=== PATIENT | female | born 1960 | race Caucasian/White ===

== ENCOUNTER 2022-12-01 11:22 | Inpatient (IN) | payer OTHER, SELFPAY ==
[2022-12-01] VITALS (25 sets, daily range): BP systolic 83–131; BP diastolic 56–81; PULSE 73–114; RESP 16–18; TEMP 36.4–36.8; O2SAT 91–97; BMI 25.6
--- NOTE | 2022-12-01 11:50 | ED.NURSE ---
ekg done. pt on home o2 at 2-3 L/nc. pt placed on wall O2.
--- NOTE | 2022-12-01 11:53 | CRLHL7_ITS ---
For Patients: As a result of the Century Cures Act, medical imaging exams and procedure reports are released immediately into your electronic medical record. You may view this report before your referring provider. If you have questions, please contact your health care provider. Indication: Chest pain, hypoxia Comparison: 05/21/2013 Technique: CTA of the chest. 95 cc of Isovue 370. Findings: Multiple lung cysts of varying sizes. This has progressed slightly in the interim. The largest lung cysts measure up to 3.1 cm. A loculated hydropneumothorax is seen in a subpulmonic location of the left lower lobe. In 2012 there was a pneumothorax involving the left hemithorax with areas of atelectasis. Small loculated right pleural effusion. Areas of atelectasis or scarring in the right lower lobe. No central pulmonary artery embolism. No obvious abnormality of visualized upper abdomen. No thoracic aortic aneurysm. No aggressive appearing osseous lesion. Kyphosis, with severely height loss of a chronic compression deformity in the lower thoracic spine Impression: 1. Subpulmonic loculated left hydro pneumothorax associated with areas of left lower lobe atelectasis. 2. Small loculated right pleural effusion. Areas of atelectasis or scarring in the right lower lobe. 3. Multiple lung cysts of varying with slight progression. Correlate with any history of TESFAYE given pneumothoraces and pleural effusions. The fluid could be sampled to determine if there is a chylothorax. Alternatively this is emphysema with chronic loculated pleural fluid. 4. No central pulmonary artery embolism. Please note that all CT scans at this facility use dose modulation, iterative reconstruction, and/or weight-based dosing when appropriate to reduce radiation dose to as low as reasonably achievable. Dictated by Nikunj Stovall MD @ 12/01/2022 1:48:59 PM (Electronically Signed) ADDENDUM ----- Requested to comparison additionally to 11/29/2022 CT also performed at [facility] but not available for me at the time of the dictation. In comparison there is slightly more fluid in the right pleural space on the new exam. Dictated by Nikunj Stovall MD @ Dec 01 2022 1:48PM Signed by:?Nikunj Stovall MD @12/01/2022 1:51:09 PM (Electronic Signature)
--- NOTE | 2022-12-01 12:02 | ED_ITS ---
HPI - General Adult General Chief complaint: Shortness of Breath/Dyspnea Stated complaint: breathing issues Time Seen by Provider: 12/01/22 11:29 Source: patient and family Mode of arrival: ambulatory Limitations: no limitations History of Present Illness HPI narrative: 62-year-old female coming in today complaining of right-sided chest pain and hypoxia. Patient states that she was hospitalized just before the holidays last year with pneumonia and influenza. She was discharged home on chronic O2 therapy which she states she has been using intermittently over the last 2 weeks. She generally has it set at 2 L when she does use it. She had a follow- up appointment this week on Saturday where she received x-ray which showed a small pleural effusion. She had a follow-up CT done on which showed that same small pleural effusion, resolution of her pneumonia and continued cavitary lesions which were not new. It did note that she had a cavitary lesion on the right that had filled up with fluid as well. I was able to review these results on the patient's health records on her phone. Patient's chest pain is located in the right lateral chest wall just at the axillary line. Does not radiate. Nothing seems to make it better or worse. She states that last night she began to feel a little bit more short of breath than her baseline and she checked her oxygen saturation 1st thing this morning a nd it was 88% on room air which she generally sits around 92-94. She put her oxygen on at 3 L and this brought her oxygen up to about mid 90s. She is quite concerned that her oxygen went down so low in so she presents to the ER today. She is not coughing more than usual, she denies any fevers. She does have a history of PE. She denies headache, dizziness or lightheadedness. She denies nausea or vomiting. Related Data Home Medications Medication Instructions Recorded Confirmed albuterol 90 mcg/actuation aerosol 2 spray inhalation Q4H PRN 10/16/22 12/01/22 inhaler buprenorphine 8 mg-naloxone 2 mg 3 film sublingual DAILY 10/16/22 12/01/22 sublingual film calcium carbonate 600 mg calcium 600 mg PO QDAY 10/16/22 12/01/22 (1,500 mg) tablet (Calcium) escitalopram oxalate 20 mg tablet 20 mg PO QDAY 10/16/22 12/01/22 folic acid 1 mg tablet 1 mg PO QDAY 10/16/22 12/01/22 glucosamine sulfate 1,000 mg tablet 1,000 mg PO QDAY 10/16/22 12/01/22 lamotrigine 200 mg tablet 200 mg PO QDAY 10/16/22 12/01/22 lidocaine 5 % topical patch 1 patch topical QDAY PRN 10/16/22 12/01/22 multivitamin 1 tab PO QAM 10/16/22 12/01/22 omega-3 fatty acids 1,000 mg 1,000 mg PO QDAY 10/16/22 12/01/22 capsule potassium chloride 15 mEq 15 meq PO QDAY 10/16/22 12/01/22 tablet,extended release(part/cryst) trazodone 100 mg tablet 100 mg PO QHS PRN 10/16/22 12/01/22 warfarin 2.5 mg tablet 2.5 mg PO QDAY 10/16/22 12/01/22 clonidine HCl 0.1 mg tablet 0.1 mg PO Q8H PRN anxiety 12/01/22 12/01/22 methocarbamol 500 mg tablet 500 mg PO Q8H PRN pain 12/01/22 12/01/22 Allergies Allergy/AdvReac Type Severity Reaction Status Date / Time buspirone Allergy Mild Unknown Verified 10/16/22 09:50 celecoxib Allergy Mild Nausea Verified 10/16/22 09:50 gabapentin Allergy Mild Unknown Verified 10/16/22 09:50 naproxen Allergy Mild Nausea Verified 10/16/22 09:50 nortriptyline Allergy Mild Unknown Verified 10/16/22 09:50 paroxetine Allergy Mild Unknown Verified 10/16/22 09:50 piroxicam Allergy Mild Unknown Verified 10/16/22 09:50 prednisone Allergy Mild Unknown Verified 10/16/22 09:50 Review of Systems Status of ROS: Reports: 10 or more systems reviewed and unremarkable except as noted in History and below [facility] Medical History ADHD (attention deficit hyperactivity disorder) Chronic bullous emphysema (05/23/13) History of anxiety History of colitis History of depression History of pulmonary embolism Hypertension Lupus anticoagulant positive Peripheral venous insufficiency (05/23/13) Spontaneous pneumothorax (2005) Surgical History History of endometrial ablation (05/19/08) History of excision of mass (08/22/17) History of hand surgery (12/03/19) Social History Narrative: History narcotic dependence. Smoking Status: Former smoker How often do you have a drink containing alcohol: never AUDIT-C Alcohol total score: 0 Non-prescribed substance use: denies use Exam Narrative: Exam Narrative: Well-nourished well-developed patient in no acute distress. Alert and oriented. Answers questions appropriately. Mood and affect are appropriate. Thoughts are goal oriented and rational. No tangential or magical thinking noted. Patient speaks in full sentences without needing to catch their breath. HEENT: Normocephalic atraumatic. Pupils are equally round reactive to light. Extraocular muscles are intact. Conjunctivae are moist without any icterus noted. Moist mucous membranes. Posterior pharynx is normal. Neck is soft without any lymphadenopathy or thyromegaly. No masses are appreciated. Cardiovascular: Heart is regular rate and rhythm S1 and S2 are present without any murmurs. Lungs: Bibasilar crackles. Patient takes deep breaths without discomfort. No wheezes rhonchi or rales appreciated. Abdomen: Soft and nontender nondistended with normal bowel sounds. Extremities: Bilateral lower extremities are without edema. Normal DP and PT pulses. Skin: Well perfused without any obvious rashes. Const: Vital Signs, click to edit/add: Vital Signs - 24 hr 12/01/22 11:27 12/01/22 12:45 12/01/22 12:46 Temperature 98.3 F Pulse Rate 85 Pulse Rate [Right Pulse Oximeter] 114 H 84 Respiratory Rate 18 18 Blood Pressure Blood Pressure [Ri ght Upper Arm] 123/80 112/69 Pulse Oximetry 95 92 93 Oxygen Delivery Me thod Room Air Nasal Cannula 12/01/22 12:00 12/01/22 13:17 12/01/22 13:13 Temperature Pulse Rate 85 Pulse Rate [Right Pulse Oximeter] 89 80 Respiratory Rate Blood Pressure 115/68 Blood Pressure [Ri ght Upper Arm] 103/77 115/68 Pulse Oximetry 93 94 93 Oxygen Delivery Me thod Nasal Cannula Nasal Cannula 12/01/22 13:14 12/01/22 13:30 12/01/22 13:32 Temperature Pulse Rate 82 80 82 Pulse Rate [Right Pulse Oximeter] Respiratory Rate Blood Pressure 111/63 Blood Pressure [Ri ght Upper Arm] Pulse Oximetry 94 95 95 Oxygen Delivery Me thod 12/01/22 13:33 12/01/22 14:04 12/01/22 14:05 Temperature Pulse Rate 82 83 78 Pulse Rate [Right Pulse Oximeter] Respiratory Rate Blood Pressure 131/75 Blood Pressure [Ri ght Upper Arm] Pulse Oximetry 95 96 97 Oxygen Delivery Me thod 12/01/22 14:06 12/01/22 14:30 12/01/22 14:32 Temperature Pulse Rate 75 77 81 Pulse Rate [Right Pulse Oximeter] Respiratory Rate Blood Pressure 108/71 Blood Pressure [Ri ght Upper Arm] Pulse Oximetry 97 94 94 Oxygen Delivery Me thod 12/01/22 15:00 12/01/22 15:01 Temperature Pulse Rate 83 89 Pulse Rate [Right Pulse Oximeter] Respiratory Rate Blood Pressure 118/79 Blood Pressure [Ri ght Upper Arm] Pulse Oximetry 91 93 Oxygen Delivery Me thod Course Course Hospital Course: IV was established labs were drawn. EKG, read by me, shows normal sinus rhythm with a pulse of 94. CBC showing slight anemia with a low hemoglobin at 11.2. INR Elevated at 3.56. D-dimer slightly elevated 0.56. Chemistries are unremarkable. LFTs are unremarkable. Troponin was elevated at 0.06, repeat troponin unchanged at 0.06. CRP markedly elevated at 18.4. Negative triple swab. CT chest negative for PE, however showing hydropneumothorax and a right-sided loculated pleural effusion. Discussed findings with Dr. Petty-patient will be admitted for further management. Vital Signs Vital signs: Initial Vital Signs Temperature 98.3 F 12/01/22 11:27 Temperature Source Temporal Artery Scan 12/01/22 11:27 Pulse Rate 114 H 12/01/22 11:27 Respiratory Rate 18 12/01/22 11:27 Blood Pressure 123/80 12/01/22 11:27 Blood Pressure Mean 94 12/01/22 11:27 Blood Pressure Position Supine 12/01/22 11:27 Pulse Oximetry 95 12/01/22 11:27 Oxygen Delivery Method 12/01/22 11:27 Vital Signs Temperature 98.3 F 12/01/22 11:27 Pulse Rate 114 H 12/01/22 11:27 Respiratory Rate 18 12/01/22 11:27 Blood Pressure 123/80 12/01/22 11:27 Pulse Oximetry 95 12/01/22 11:27 Oxygen Delivery Method 12/01/22 11:27 Temperature 98.3 F 12/01/22 11:27 Pulse Rate 89 12/01/22 15:01 Respiratory Rate 18 12/01/22 12:46 Blood Pressure 118/79 12/01/22 15:01 Pulse Oximetry 93 12/01/22 15:01 Oxygen Delivery Method 12/01/22 13:17 Medical Decision Making MDM Narrative Medical decision making narrative: 62-year-old female with hypoxia, elevated troponin, hydropneumothorax-patient will be admitted for further management. Medical Records Medical records reviewed: Yes I reviewed the patient's medical records Lab Data Lab results reviewed: Yes I reviewed the patient's lab results Labs: Lab Results 12/01/22 12/01/22 12/01/22 Range/Units 12:05 12:05 12:05 WBC 10.51 (4.50-11.00) K/uL RBC 3.43 L (4.00-5.20) m/uL Hgb 11.2 L (12.0-16.0) gm/dL Hct 33.7 (33.0-51.0) % MCV 98 (80-100) fL MCH 33 (26-34) pg MCHC 33 (32-36) gm/dL RDW Coeff of Javed 14.2 (11.5-15.5) % Plt Count 314 (140-440) K/uL Neut % (Auto) 65.8 (42.0-72.0) % Lymph % (Auto) 19.5 L (20-44) % [place] % (Auto) 9.0 (0.0-11.0) % Eos % (Auto) 5.3 (0.0-7.0) % Baso % (Auto) 0.2 (0.0-3.0) % Neut # (Auto) 6.91 (1.7-7.0) K/uL Lymph # (Auto) 2.00 (0.90-2.90) K/uL [place] # (Auto) 0.90 (0.00-0.90) K/UL Eos # (Auto) 0.56 H (0.00-0.50) K/uL Baso # (Auto) 0.02 (0.00-0.30) K/uL INR (0.91-1.10) D-Dimer Quant (PE/DVT) (0.00-0.50) ug/ml Sodium 135 (135-149) mmol/L Potassium 3.8 (3.6-5.1) mmol/L Chloride 105 (96-114) mmol/L Carbon Dioxide 25 (20-32) mmol/L BUN 11 (7-30) mg/dL Creatinine 0.6 (0.5-1.5) mg/dL Estimated Creat Clear 49.72 Estimated GFR 101 ml/min Glucose 124 H (60-115) mg/dL Calcium 9.3 (8.4-10.6) mg/dL Total Bilirubin 0.6 (0.1-1.5) mg/dL Direct Bilirubin 0.4 (0.0-0.5) mg/dL AST 18 (12-35) U/L ALT 20 (4-35) U/L Alkaline Phosphatase 68 (40-150) U/L Troponin I (0.01-0.04) ng/mL C-Reactive Protein 18.4 H (0.5-1.0) mg/dL Total Protein 7.0 (6.0-8.3) g/dL Albumin 3.8 (3.3-5.0) g/dL SARS-CoV-2 (PCR) Negative SARS-CoV-2 (Negative) Influenza Type A (PCR) Negative PCR FLU A (Negative) Influenza Type B (PCR) Negative PCR FLU B (Negative) RSV (PCR) Negative PCR RSV (Negative) 12/01/22 12/01/22 12/01/22 Range/Units 12:05 12:05 13:16 WBC (4.50-11.00) K/uL RBC (4.00-5.20) m/uL Hgb (12.0-16.0) gm/dL Hct (33.0-51.0) % MCV (80-100) fL MCH (26-34) pg MCHC (32-36) gm/dL RDW Coeff of Javed (11.5-15.5) % Plt Count (140-440) K/uL Neut % (Auto) (42.0-72.0) % Lymph % (Auto) (20-44) % [place] % (Auto) (0.0-11.0) % Eos % (Auto) (0.0-7.0) % Baso % (Auto) (0.0-3.0) % Neut # (Auto) (1.7-7.0) K/uL Lymph # (Auto) (0.90-2.90) K/uL [place] # (Auto) (0.00-0.90) K/UL Eos # (Auto) (0.00-0.50) K/uL Baso # (Auto) (0.00-0.30) K/uL INR (0.91-1.10) D-Dimer Quant (PE/DVT) 0.56 H (0.00-0.50) ug/ml Sodium (135-149) mmol/L Potassium (3.6-5.1) mmol/L Chloride (96-114) mmol/L Carbon Dioxide (20-32) mmol/L BUN (7-30) mg/dL Creatinine (0.5-1.5) mg/dL Estimated Creat Clear Estimated GFR ml/min Glucose (60-115) mg/dL Calcium (8.4-10.6) mg/dL Total Bilirubin (0.1-1.5) mg/dL Direct Bilirubin (0.0-0.5) mg/dL AST (12-35) U/L ALT (4-35) U/L Alkaline Phosphatase (40-150) U/L Troponin I 0.06 H* 0.06 H* (0.01-0.04) ng/mL C-Reactive Protein (0.5-1.0) mg/dL Total Protein (6.0-8.3) g/dL Albumin (3.3-5.0) g/dL SARS-CoV-2 (PCR) (Negative) Influenza Type A (PCR) (Negative) Influenza Type B (PCR) (Negative) RSV (PCR) (Negative) 12/01/22 Range/Units 13:16 WBC (4.50-11.00) K/uL RBC (4.00-5.20) m/uL Hgb (12.0-16.0) gm/dL Hct (33.0-51.0) % MCV (80-100) fL MCH (26-34) pg MCHC (32-36) gm/dL RDW Coeff of Javed (11.5-15.5) % Plt Count (140-440) K/uL Neut % (Auto) (42.0-72.0) % Lymph % (Auto) (20-44) % [place] % (Auto) (0.0-11.0) % Eos % (Auto) (0.0-7.0) % Baso % (Auto) (0.0-3.0) % Neut # (Auto) (1.7-7.0) K/uL Lymph # (Auto) (0.90-2.90) K/uL [place] # (Auto) (0.00-0.90) K/UL Eos # (Auto) (0.00-0.50) K/uL Baso # (Auto) (0.00-0.30) K/uL INR 3.56 H (0.91-1.10) D-Dimer Quant (PE/DVT) (0.00-0.50) ug/ml Sodium (135-149) mmol/L Potassium (3.6-5.1) mmol/L Chloride (96-114) mmol/L Carbon Dioxide (20-32) mmol/L BUN (7-30) mg/dL Creatinine (0.5-1.5) mg/dL Estimated Creat Clear Estimated GFR ml/min Glucose (60-115) mg/dL Calcium (8.4-10.6) mg/dL Total Bilirubin (0.1-1.5) mg/dL Direct Bilirubin (0.0-0.5) mg/dL AST (12-35) U/L ALT (4-35) U/L Alkaline Phosphatase (40-150) U/L Troponin I (0.01-0.04) ng/mL C-Reactive Protein (0.5-1.0) mg/dL Total Protein (6.0-8.3) g/dL Albumin (3.3-5.0) g/dL SARS-CoV-2 (PCR) (Negative) Influenza Type A (PCR) (Negative) Influenza Type B (PCR) (Negative) RSV (PCR) (Negative) Imaging Data CT scan - chest: Attestation: I have reviewed the pertinent imaging results. Radiologist's impression: CTA of the chest. 95 cc of Isovue 370. Findings: Multiple lung cysts of varying sizes. This has progressed slightly in the interim. The largest lung cysts measure up to 3.1 cm. A loculated hydropneumothorax is seen in a subpulmonic location of the left lower lobe. In 2013 there was a pneumothorax involving the left hemithorax with areas of atelectasis. Small loculated right pleural effusion. Areas of atelectasis or scarring in the right lower lobe. No central pulmonary artery embolism. No obvious abnormality of visualized upper abdomen. No thoracic aortic aneurysm. No aggressive appearing osseous lesion. Kyphosis, with severely height loss of a chronic compression deformity in the lower thoracic spine Impression: 1. Subpulmonic loculated left hydro pneumothorax associated with areas of left lower lobe atelectasis. 2. Small loculated right pleural effusion. Areas of atelectasis or scarring in the right lower lobe. 3. Multiple lung cysts of varying with slight progression. Correlate with any history of TESFAYE given pneumothoraces and pleural effusions. The fluid could be sampled to determine if there is a chylothorax. Alternatively this is emphysema with chronic loculated pleural fluid. 4. No central pulmonary artery embolism. ECG Data Attestation: I personally reviewed and interpreted this ECG as follows: Discharge Plan Discharge Clinical Impression: Hydropneumothorax, Elevated troponin, Hypoxia Patient Disposition: Admitted As Inpatient Condition: Stable Prescriptions: No Action buprenorphine-naloxone 8-2 mg film 3 film sublingual DAILY albuterol 90 mcg/actuation aerosol 2 spray inhalation Q4H PRN warfarin 2.5 mg tablet 2.5 mg PO QDAY Label Comments: directed per her INR results trazodone 100 mg tablet 100 mg PO QHS PRN potassium chloride 15 mEq tablet,ER particles/crystals 15 meq PO QDAY omega-3 fatty acids 1,000 mg capsule 1,000 mg PO QDAY multivitamin Tablet 1 tab PO QAM lidocaine 5 % adhesive patch,medicated 1 patch topical QDAY PRN Label Comments: May use 1-2 patches QD PRN Rx Instructions: leave on most painful area for up to 12 hrs lamotrigine 200 mg tablet 200 mg PO QDAY glucosamine sulfate 1,000 mg tablet 1,000 mg PO QDAY Rx Instructions: administer with meals folic acid 1 mg tablet 1 mg PO QDAY escitalopram oxalate 20 mg tablet 20 mg PO QDAY calcium carbonate [Calcium 600] 600 mg calcium (1,500 mg) tablet 600 mg PO QDAY methocarbamol 500 mg tablet 500 mg PO Q8H PRN (Reason: pain) Label Comments: TAKE 1-2 TABLETS BY MOUTH EVERY 8 HOURS NEEDED FOR PAIN/SPASMS. clonidine HCl 0.1 mg tablet 0.1 mg PO Q8H PRN (Reason: anxiety) Label Comments: TAKE 1 TABLET BY MOUTH 3 TIMES PER DAY NEEDED FOR ANXIETY Follow Up/Referrals: Cindi Torres MD [Primary Care Provider] -
[2022-12-01 12:17] LABS: Basophils Absolute Auto 0.02 K/uL (0.00-0.30); Basophils Percent Auto 0.2 % (0.0-3.0); Eosinophils Absolute Auto 0.56 K/uL (0.00-0.50); Eosinophils Percent Auto 5.3 % (0.0-7.0); Hematocrit 33.7 % (33.0-51.0); Hemoglobin* 11.2 gm/dL (12.0-16.0); Immature Granulocytes Abs Auto 0.02 K/uL (0.00-0.30); Immature Granulocytes Pct Auto 0.2 %; Lymphocytes Percent Auto 19.5 % (20-44); Mean Corpuscular HGB Conc 33 gm/dL (32-36); Mean Corpuscular Hemoglobin 33 pg (26-34); Mean Corpuscular Volume 98 fL (80-100); Neutrophils Absolute Auto 6.91 K/uL (1.7-7.0); Neutrophils Percent Auto 65.8 % (42.0-72.0); Platelet Count* 314 K/uL (140-440); RDW Coefficient of Variation % 14.2 % (11.5-15.5); Red Blood Count 3.43 m/uL (4.00-5.20); White Blood Count* 10.51 K/uL (4.50-11.00)
[2022-12-01 12:35] LABS: Slide Review Reflex No
[2022-12-01 12:36] LABS: Chloride* 105 mmol/L (96-114)
[2022-12-01 12:37] LABS: Albumin* 3.8 g/dL (3.3-5.0); Potassium* 3.8 mmol/L (3.6-5.1); Sodium* 135 mmol/L (135-149)
[2022-12-01 12:39] LABS: Creatinine* 0.6 mg/dL (0.5-1.5); Est. Creatinine Clearance* 49.72; Estimated Glomerular Filt Rate 101 ml/min
[2022-12-01 12:40] LABS: Alanine Aminotransferase* 20 U/L (4-35); Alkaline Phosphatase* 68 U/L (40-150); Aspartate Amino Transferase* 18 U/L (12-35); Bilirubin Direct* 0.4 mg/dL (0.0-0.5); Bilirubin Total* 0.6 mg/dL (0.1-1.5); Blood Urea Nitrogen* 11 mg/dL (7-30); Calcium* 9.3 mg/dL (8.4-10.6); Carbon Dioxide* 25 mmol/L (20-32); D Dimer Quantitative* 0.56 ug/ml (0.00-0.50); Glucose* 124 mg/dL (60-115)
[2022-12-01 12:54] LABS: PCR FLU A Negative PCR FLU A (Negative); PCR FLU B Negative PCR FLU B (Negative); PCR RSV Negative PCR RSV (Negative)
[2022-12-01 12:58] LABS: SARS PCR* Negative SARS-CoV-2 (Negative)
[2022-12-01 13:00] LABS: C Reactive Protein* 18.4 mg/dL (0.5-1.0); Troponin I* 0.06 ng/mL (0.01-0.04)
--- NOTE | 2022-12-01 13:03 | ED.NURSE ---
lab called with critical troponin 0.06, dr. brown notified.
--- NOTE | 2022-12-01 14:09 | ED.NURSE ---
sats 96% on 3 Liters, per dr. brown check sats on RA.
[2022-12-01 14:16] LABS: Troponin I* 0.06 ng/mL (0.01-0.04)
--- NOTE | 2022-12-01 14:23 | ED.NURSE ---
RA sats 88-90% while at rest.
[2022-12-01 15:04] LABS: INR 3.56 (0.91-1.10); Prothrombin Time 37.2 Seconds
--- NOTE | 2022-12-01 15:38 | ED.NURSE ---
dr. brown in talking with pt, plans admission
--- NOTE | 2022-12-01 15:46 | PM.IMHP1 ---
Hospitalist- H&P: HPI History of Present Illness Date Seen: 12/01/22 Chief complaint: breathing issues Narrative: Shweta Teague is a 62 year old female who presented to the ED today for a 2 day history of R sided chest pain and hypoxia. She started noted pain in her R chest yesterday; no trauma. Pain worse with deep breathing and movement. No fevers, no significant cough, no sick contacts. She was recently hospitalized at [facility] from 11/08-11/11 for Influenza and pneumonia, then transferred to [facility] from 11/11-11/16 after having severe epistaxis and concern for worsening respiratory failure. Shweta was discharged home on supplemental oxygen and a course of Cefpodoxime; has completed course of antibiotics and had been weaning off of supplemental oxygen successfully. This morning, in addition to her chest pain, Shweta also noted hypoxia at rest (88% on RA, had been 92-94% at rest earlier in the week). The hypoxia and persistent R sided chest pain prompted her ED visit. ER Course and Findings: - troponin 0.06, no acute changes on EKG - CT scan revealed no PE, noted subpulmonic loculated left hydropneumothorax, left lower lobe atelectasis, small loculated right pleural effusion, multiple lung cysts (emphysema and TESFAYE in ddx) - hgb 11.2 (was 10.6 last week) - normal WBC, CRP 18 - 88% on RA, responded well to low dose supplemental oxygen - INR 3.56 (on Coumadin for antiphospholipid antibody and history of PE, details below) CT findings above are new. Patient had a CT in clinic last week after hospital d/c f/u that exhibited the following: Findings: Interval development fluid within the pre-existing cyst in the left lower lobe. This cyst measures 7.9 cm and is chronic. There is no associated wall thickening. Marked improved pulmonary parenchyma bilaterally compared to the prior study with mild residual parenchymal densities in the left lower lobe and right lower lobe. 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 Decreased intrathoracic adenopathy compared to the prior exam. No fracture. Incidental small left renal cysts noted. No hiatal hernia. There is a focal ovoid area of low attenuation within the right lower lobe medially measuring 2.7 cm may also represent fluid within a pre-existing cyst. Small right pleural effusion is present. There is no pneumothorax. ? Impression: Improved appearance of the bilateral inflammatory/infectious process when compared to the prior study with residual airspace densities in both lower lobes. Interval development of fluid within the large pre-existing lung cyst within the left lower lobe. This does not appear to represent an abscess. Small right pleural effusion is now present. There is also a 2.7 cm focal area of relative low density within the medial right lower lobe which likely represents fluid within additional pre-existing lung cyst. Decreased reactive mediastinal and bilateral hilar adenopathy. Recommend follow-up CT chest in 1 month to further assess these findings. Patient's past medical history updated in tabs below. She had bilateral massive PEs in 2005; was subsequently diagnosed with antiphospholipid antibody. She is on warfarin, her factor 10 Chromogenic is followed rather than INR given unreliability with this particular hypercoagulable state. After her severe epistaxis last month, she was treated with vitamin K, then bridged with BID Lovenox until last week. She sees Drs. Torres and Clemente at the [facility] locally. Shweta lives with Chris in [facility]; he would be medical decision maker if needed. Two grown children. Quit smoking 10+ years ago, occasionally chews nicotine gum. No ETOH use. Requests Full Code status. Review of Systems Status of ROS: Reports: 10 or more systems reviewed and unremarkable except as noted in History and below Narrative: - no concerning skin lesions or rashes - no hemoptysis - no L-sided chest pain PFSH PFSH Medical History (Updated 12/01/22 @ 17:04 by Melanie Petty MD) Anxiety Atrophic vaginitis Bipolar disorder Chronic bullous emphysema (05/23/13) Depression History of ADHD History of colitis History of narcotic use History of pulmonary embolism Insomnia Lupus anticoagulant positive Peripheral venous insufficiency (05/23/13) Spontaneous pneumothorax (2005) Surgical History History of endometrial ablation (05/19/08) History of excision of mass (08/22/17) History of hand surgery (12/03/19) Social History (Updated 12/01/22 @ 16:56 by Melanie Petty MD) Narrative: Lives with Chris (medical decision maker, if needed) in [place], adult children. Baby-sits grandchildren. Remote history of smoking, quit > 10 years ago. Occasionally chews nicotine gum. No alcohol use. Highest level of school completed/degree received: high school graduate Smoking Status: Former smoker How often do you have a drink containing alcohol: never AUDIT-C Alcohol total score: 0 Non-prescribed substance use: denies use Caffeine: No service: No Meds Home Medications and Allergies Home Medications Medication Instructions Recorded Confirmed Type buprenorphine 8 mg-naloxone 2 mg 3 film sublingual DAILY 10/16/22 12/01/22 History sublingual film calcium carbonate 600 mg calcium 600 mg PO DAILY 10/16/22 12/01/22 History (1,500 mg) tablet (Calcium) escitalopram oxalate 20 mg tablet 20 mg PO DAILY 10/16/22 12/01/22 History folic acid 1 mg tablet 1 mg PO DAILY 10/16/22 12/01/22 History glucosamine sulfate 1,000 mg tablet 1,000 mg PO DAILY 10/16/22 12/01/22 History lamotrigine 200 mg tablet 200 mg PO DAILY 10/16/22 12/01/22 History lidocaine 5 % topical patch 1 patch topical DAILY PRN 10/16/22 12/01/22 History multivitamin 1 tab PO DAILY 10/16/22 12/01/22 History trazodone 100 mg tablet 100 mg PO HS 10/16/22 12/01/22 History warfarin 2.5 mg tablet 2.5 - 5 mg PO DAILY 10/16/22 12/01/22 History albuterol sulfate 90 mcg/actuation 2 puff inhalation Q4H PRN 12/01/22 12/01/22 History aerosol inhaler clonidine HCl 0.1 mg tablet 0.1 mg PO Q8H PRN anxiety 12/01/22 12/01/22 History methocarbamol 500 mg tablet 500 - 1,000 mg PO Q8H PRN pain 12/01/22 12/01/22 History Allergies Allergy/AdvReac Type Severity Reaction Status Date / Time buspirone Allergy Mild Unknown Verified 10/16/22 09:50 celecoxib Allergy Mild Nausea Verified 10/16/22 09:50 gabapentin Allergy Mild Unknown Verified 10/16/22 09:50 naproxen Allergy Mild Nausea Verified 10/16/22 09:50 nortriptyline Allergy Mild Unknown Verified 10/16/22 09:50 paroxetine Allergy Mild Unknown Verified 10/16/22 09:50 piroxicam Allergy Mild Unknown Verified 10/16/22 09:50 prednisone Allergy Mild Unknown Verified 10/16/22 09:50 Exam Narrative: Exam Narrative: GEN: Alert and oriented, speaking in full sentences HEENT: EOMIs bilaterally, no scleral icterus CV: RRR, No concerning murmurs, rubs, or gallops Chest: No crepitus over palpation, right chest R: No wheezing, decreased air movement R lung base, crackles L base Ext: wwp, no concerning edema Skin: No concerning skin lesions or rashes on exposed skin Neuro: No focal deficits Psych: Appropriate Const: Vital Signs, click to edit/add: Vital Signs - 24 hr 12/01/22 11:27 12/01/22 12:45 12/01/22 12:46 Temperature 98.3 F Pulse Rate 85 Pulse Rate [Right Pulse Oximeter] 114 H 84 Respiratory Rate 18 18 Blood Pressure Blood Pressure [Ri ght Upper Arm] 123/80 112/69 Pulse Oximetry 95 92 93 Oxygen Delivery Me thod Room Air Nasal Cannula 12/01/22 12:00 12/01/22 13:17 12/01/22 13:13 Temperature Pulse Rate 85 Pulse Rate [Right Pulse Oximeter] 89 80 Respiratory Rate Blood Pressure 115/68 Blood Pressure [Ri ght Upper Arm] 103/77 115/68 Pulse Oximetry 93 94 93 Oxygen Delivery Me thod Nasal Cannula Nasal Cannula 12/01/22 13:14 12/01/22 13:30 12/01/22 13:32 Temperature Pulse Rate 82 80 82 Pulse Rate [Right Pulse Oximeter] Respiratory Rate Blood Pressure 111/63 Blood Pressure [Ri ght Upper Arm] Pulse Oximetry 94 95 95 Oxygen Delivery Me thod 12/01/22 13:33 12/01/22 14:04 12/01/22 14:05 Temperature Pulse Rate 82 83 78 Pulse Rate [Right Pulse Oximeter] Respiratory Rate Blood Pressure 131/75 Blood Pressure [Ri ght Upper Arm] Pulse Oximetry 95 96 97 Oxygen Delivery Me thod 12/01/22 14:06 12/01/22 14:30 12/01/22 14:32 Temperature Pulse Rate 75 77 81 Pulse Rate [Right Pulse Oximeter] Respiratory Rate Blood Pressure 108/71 Blood Pressure [Ri ght Upper Arm] Pulse Oximetry 97 94 94 Oxygen Delivery Me thod 12/01/22 15:00 12/01/22 15:01 Temperature Pulse Rate 83 89 Pulse Rate [Right Pulse Oximeter] Respiratory Rate Blood Pressure 118/79 Blood Pressure [Ri ght Upper Arm] Pulse Oximetry 91 93 Oxygen Delivery [facility] Hospitalist - H&P: Result Labs Labs: Short CBC 12/01/22 Range/Units 12:05 WBC 10.51 (4.50-11.00) K/uL Hgb 11.2 L (12.0-16.0) gm/dL Hct 33.7 (33.0-51.0) % Plt Count 314 (140-440) K/uL BMP 12/01/22 12:05 Sodium 135 Potassium 3.8 Chloride 105 Carbon Dioxide 25 BUN 11 Creatinine 0.6 Glucose 124 H Calcium 9.3 Cardiac Enzymes 12/01/22 12/01/22 Range/Units 12:05 13:16 Troponin I 0.06 H* 0.06 H* (0.01-0.04) ng/mL Liver Function 12/01/22 Range/Units 12:05 Total Bilirubin 0.6 (0.1-1.5) mg/dL Direct Bilirubin 0.4 (0.0-0.5) mg/dL AST 18 (12-35) U/L ALT 20 (4-35) U/L Alkaline Phosphatase 68 (40-150) U/L Albumin 3.8 (3.3-5.0) g/dL Assessment and Plan Assessment and plan (1) Acute respiratory failure with hypoxia: Problem comment: - likely related to findings on admission CT (subpulmonic loculated L hydropneumothorax, atelectasis, small loculated R pleural effusion) - reviewed case with Dr. Edwards of general surgery; will see patient in anticipation of thoracentesis tomorrow morning, pending INR - does not appear to have acute infectious process contributing, recently completed course of abx. 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) Status: Acute (3) Elevated troponin: Problem comment: - no chest pain or acute changes to EKG, likely demand ischemia from above noted lung processes - follow troponin to peak, telemetry, TTE ordered Status: Acute (4) Supratherapeutic INR: Problem comment: - Will give Vitamin K x1 in anticipation of thoracentesis tomorrow - hold coumadin, follow INR and Factor 10 Chromogenic (however, this is a send out lab) - known + lupus anticoagulant, h/o bilateral massive PEs - will bridge with 70mg of Lovenox BID (starting tomorrow night) Status: Acute (5) Hydropneumothorax: Status: Acute (6) Pleural effusion: Status: Acute (7) Anxiety: Problem comment: - continue home meds Status: Acute (8) Lupus anticoagulant positive: Problem comment: - on Warfarin Status: Chronic (9) Normocytic anemia: Problem comment: - recent epistaxis, outpatient Hgb 10.6 on 11/26/22 Status: Acute (10) History of narcotic use: Problem comment: - on suboxone as outpatient, will continue this during stay Status: Acute (11) Insomnia: Problem comment: - on Trazodone as an outpatient, continue this during stay Status: Acute Plan Per above: - Vitamin K, Follow coag studies - anticipate thoracentesis tomorrow - Continue home medications - follow troponin, TTE Patient and updated on plan of care, questions answered
--- NOTE | 2022-12-01 15:59 | ED.NURSE ---
report given to Tana, pt will transfer to room 257 via wheelchair on tele, with belongings.
[2022-12-01] MEDS: ACETAMINOPHEN 325 MG TABLET 975 MG PO (18:01)
[2022-12-01 19:05] LABS: Troponin I* 0.05 ng/mL (0.01-0.04)
[2022-12-01] MEDS: TRAZODONE HCL 50 MG TABLET 100 MG PO (20:41)
[2022-12-01] MEDS: SODIUM CHLORIDE 0.9 % (FLUSH) 10 ML SYRINGE 5 ML IVF (20:41)
--- NOTE | 2022-12-01 20:47 | PC.NURSE ---
Nursing Care Hours: [id number] Pt this shift arrived from ED with spouse. C/o R side lung pain 4/10 with deep breathing and coughing. 2L NC, sats above 94%. Alert and oriented, independent in room. Ate 100% of dinner. No skin integrity issues. LS clear upper lobes, diminished bases bilaterally. Tele upon arrival showed NSR, by 1740, proposal lead writer noticed intermittent ST depressions. Dr. Petty made aware, troponin labs drawn and improved since ED. No c/o chest pain per pt.
[2022-12-01] MEDS: CARBOXYMETHYLCELLULOSE (REFRESH PLUS) TEARS 1 DROP EYE-BOTH (22:58)
[2022-12-02] VITALS (8 sets, daily range): BP systolic 104–131; BP diastolic 75–83; PULSE 69–86; RESP 16–18; TEMP 36.4–37.1; O2SAT 90–94
[2022-12-02] MEDS: ACETAMINOPHEN 325 MG TABLET 975 MG PO ×4 (03:41→23:53)
--- NOTE | 2022-12-02 06:34 | PC.NURSE ---
END OF SHIFT NOTE: PT PLEASANT AND COOPERATIVE WITH CARES. AMBULATES WITHIN ROOM INDEPENDENTLY. PT REPORTS INTERMITTENT PAIN TO BACK2-01/25. VSS ON 2L NC OF SUPPLEMENTAL OXYGEN. TELE READS NSR WITH PVC. PT SLEPT WELL NOC. POSTERIOR LS DIMINISHED WITH CRACKLES.
[2022-12-02 06:38] LABS: HCO3 VBG 27 mmol/L (21-28); PCO2 VBG 42 mmHG (40-50); PO2 VBG 75.7 mmHG (25-47); pH VBG 7.412 (7.32-7.43)
[2022-12-02 06:45] LABS: Basophils Absolute Auto 0.03 K/uL (0.00-0.30); Basophils Percent Auto 0.3 % (0.0-3.0); Eosinophils Percent Auto 9.2 % (0.0-7.0); Hematocrit 31.1 % (33.0-51.0); Hemoglobin* 10.3 gm/dL (12.0-16.0); Immature Granulocytes Abs Auto 0.02 K/uL (0.00-0.30); Immature Granulocytes Pct Auto 0.2 %; Lymphocytes Absolute Auto 2.32 K/uL (0.90-2.90); Lymphocytes Percent Auto 26.7 % (20-44); Mean Corpuscular HGB Conc 33 gm/dL (32-36); Mean Corpuscular Hemoglobin 33 pg (26-34); Mean Corpuscular Volume 99 fL (80-100); Monocytes Percent Auto 10.9 % (0.0-11.0); Neutrophils Absolute Auto 4.58 K/uL (1.7-7.0); Neutrophils Percent Auto 52.7 % (42.0-72.0); Platelet Count* 306 K/uL (140-440); RDW Coefficient of Variation % 14.2 % (11.5-15.5); Red Blood Count 3.15 m/uL (4.00-5.20)
[2022-12-02 06:52] LABS: Slide Review Reflex No
[2022-12-02 06:57] LABS: Chloride* 107 mmol/L (96-114)
[2022-12-02 06:58] LABS: Potassium* 3.9 mmol/L (3.6-5.1); Sodium* 138 mmol/L (135-149)
[2022-12-02 06:59] LABS: INR 2.85 (0.91-1.10); Prothrombin Time 31.2 Seconds
[2022-12-02 07:00] LABS: Creatinine* 0.5 mg/dL (0.5-1.5); Est. Creatinine Clearance* 49.72; Estimated Glomerular Filt Rate 105 ml/min
[2022-12-02 07:01] LABS: Blood Urea Nitrogen* 9 mg/dL (7-30); Calcium* 9.2 mg/dL (8.4-10.6); Carbon Dioxide* 26 mmol/L (20-32); Glucose* 92 mg/dL (60-115)
[2022-12-02 07:13] LABS: Troponin I* 0.03 ng/mL (0.01-0.04)
[2022-12-02 07:18] LABS: Procalcitonin* 0.84 ng/mL (<0.50)
[2022-12-02] MEDS: PHYTONADIONE (VIT K1) 5 MG in 0.9 % SODIUM CHLORIDE 50 ml 50 ML 100 MG IVPB (10:16)
[2022-12-02] MEDS: BUPRENORPHINE-NALOX 8-2MG FILM 3 EACH SUBLINGUAL (10:22)
[2022-12-02] MEDS: FOLIC ACID 1 MG TABLET PO (10:22)
[2022-12-02] MEDS: lamoTRIgine 100 MG TABLET 200 MG PO (10:22)
[2022-12-02] MEDS: ESCITALOPRAM 10 MG TABLET 20 MG PO (10:22)
[2022-12-02] MEDS: CALCIUM CARBONATE 500 MG TABLET PO (10:22)
[2022-12-02] MEDS: SODIUM CHLORIDE 0.9 % (FLUSH) 10 ML SYRINGE 5 ML IVF ×2 (10:23→20:46)
[2022-12-02] MEDS: CARBOXYMETHYLCELLULOSE (REFRESH PLUS) TEARS 1 DROP EYE-BOTH ×3 (12:23→20:45)
[2022-12-02] MEDS: ENOXAPARIN 80 MG/0.8 ML INJ 70 MG SUBCUT (14:07)
[2022-12-02] MEDS: BUPRENORPHINE-NALOX 8-2MG FILM 1 EACH SUBLINGUAL (14:09)
[2022-12-02 16:16] LABS: INR 1.36 (0.91-1.10); Prothrombin Time 17.5 Seconds
--- NOTE | 2022-12-02 16:51 | PM.IMPN1 ---
Progress Note: A&P Assessment and plan (1) Acute respiratory failure with hypoxia: Problem details: - likely related to findings on admission CT (subpulmonic loculated L hydropneumothorax, atelectasis, small loculated R pleural effusion) - reviewed case with Dr. Edwards of general surgery; will see patient in anticipation of thoracentesis tomorrow morning, pending INR - does not appear to have acute infectious process contributing, recently completed course of abx. 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 Status: Acute (4) Supratherapeutic INR: Problem details: - Will give Vitamin K x1 in anticipation of thoracentesis tomorrow - hold coumadin, follow INR and Factor 10 Chromogenic (however, this is a send out lab) - known + lupus anticoagulant, h/o bilateral massive PEs - will bridge with 70mg of Lovenox BID (starting tomorrow night) Status: Acute Assessment and Plan: Will again administer more vitamin K. attempt to get INR in the 1.5 range so that she might be able to have a needle thoracentesis diagnostic study tomorrow if at all possible. Revealed with Dr. Edwards, surgeon, who agrees with above stated plans and recommendations. (5) Hydropneumothorax: Status: Acute (6) Pleural effusion: Status: Acute (7) Anxiety: Problem details: - continue home meds Status: Acute (8) Lupus anticoagulant positive: Problem details: - on Warfarin Status: Chronic (9) Normocytic anemia: Problem details: - recent epistaxis, outpatient Hgb 10.6 on 11/26/22 Status: Acute (10) History of narcotic use: Problem details: - on suboxone as outpatient, will continue this during stay Status: Acute (11) Insomnia: Problem details: - on Trazodone as an outpatient, continue this during stay Status: Acute Plan Spoke with patient in person and with her via telephone as I was visiting with the patient. Answered their questions are satisfaction. They are agreeable with above stated plans and recommendations. Time Spent With Patient Total time spent: 30 minutes Subjective Time Seen by Provider: 11:30 Date Seen: 12/02/22 Interval history: Hospital day 2. Dyspnea stable. Not any worse. For the most part she does not have dyspnea. She notes that intermittent she does have a sense of dyspnea. She does not related to increase activity or position. Does not related to coughing or gagging or aspirating. Exam Narrative: Exam Narrative: Appears comfortable and in no acute distress. Alert and oriented to self, place, time, situation. Knowledgeable of details of her health distant and current. Friendly, articulate, cooperative. Mood and affect are congruent. Decreased breath sounds. Scattered rhonchi. No wheezing or rales. Heart tones with regular rhythm. Abdomen with active bowel sounds, soft, nontender. Extremities without edema. Metacarpophalangeal joints of hands with joint swelling, not new and not acute. Independent transfer, station, and gait. No focal motor neurologic deficits. Skin is warm, dry, intact Const: Vital Signs, click to edit/add: Vital Signs - 24 hr 12/01/22 17:05 12/01/22 17:40 12/01/22 20:26 Temperature 97.6 F Pulse Rate 84 97 Pulse Rate [Left P ulse Oximeter] 84 Respiratory Rate 18 Blood Pressure [Le ft Arm] 117/73 Pulse Oximetry 94 Oxygen Delivery Me thod Nasal Cannula Oxygen Flow Rate 2 12/01/22 23:00 12/01/22 23:00 12/01/22 23:00 Temperature Pulse Rate Pulse Rate [Left P ulse Oximeter] 73 73 Respiratory Rate 18 18 18 Blood Pressure [Le ft Arm] 83/56 L Pulse Oximetry 92 92 Oxygen Delivery Me thod Nasal Cannula Nasal Cannula Oxygen Flow Rate 2 2 12/02/22 03:00 12/02/22 03:57 12/02/22 07:00 Temperature 97.5 F L Pulse Rate 71 69 Pulse Rate [Left P ulse Oximeter] 85 Respiratory Rate 18 Blood Pressure [Le ft Arm] 106/76 Pulse Oximetry 94 Oxygen Delivery Me thod Nasal Cannula Oxygen Flow Rate 2 12/02/22 07:00 12/02/22 07:00 12/02/22 07:00 Temperature Pulse Rate Pulse Rate [Left P ulse Oximeter] 85 74 Respiratory Rate 16 16 16 Blood Pressure [Le ft Arm] 104/75 Pulse Oximetry 92 92 Oxygen Delivery Me thod Nasal Cannula Nasal Cannula Oxygen Flow Rate 2 2 12/02/22 11:00 Temperature 98.5 F Pulse Rate Pulse Rate [Left P ulse Oximeter] 75 Respiratory Rate 16 Blood Pressure [Le ft Arm] 106/78 Pulse Oximetry 92 Oxygen Delivery Me thod Room Air Nasal Can nula Oxygen Flow Rate 2 Labs Labs: Laboratory Results - last 24 hr 12/01/22 12/02/22 12/02/22 18:30 06:27 06:27 WBC 8.70 RBC 3.15 L Hgb 10.3 L Hct 31.1 L MCV 99 MCH 33 MCHC 33 RDW Coeff of Javed 14.2 Plt Count 306 Neut % (Auto) 52.7 Lymph % (Auto) 26.7 Harding % (Auto) 10.9 Eos % (Auto) 9.2 H Baso % (Auto) 0.3 Neut # (Auto) 4.58 Lymph # (Auto) 2.32 Harding # (Auto) 0.90 Eos # (Auto) 0.80 H Baso # (Auto) 0.03 INR VBG pH VBG pCO2 VBG pO2 VBG HCO3 Sodium 138 Potassium 3.9 Chloride 107 Carbon Dioxide 26 BUN 9 Creatinine 0.5 Estimated Creat Clear 49.72 Estimated GFR 105 Glucose 92 Calcium 9.2 Troponin I 0.05 H 0.03 Procalcitonin 0.84 H 12/02/22 12/02/22 12/02/22 06:27 06:27 15:56 WBC RBC Hgb Hct MCV MCH MCHC RDW Coeff of Javed Plt Count Neut % (Auto) Lymph % (Auto) Harding % (Auto) Eos % (Auto) Baso % (Auto) Neut # (Auto) Lymph # (Auto) Harding # (Auto) Eos # (Auto) Baso # (Auto) INR 2.85 H 1.36 H VBG pH 7.412 VBG pCO2 42 VBG pO2 75.7 H VBG HCO3 27 Sodium Potassium Chloride Carbon Dioxide BUN Creatinine Estimated Creat Clear Estimated GFR Glucose Calcium Troponin I Procalcitonin
--- NOTE | 2022-12-02 19:58 | PC.NURSE ---
Nursing Care Hours: [id number] Pt this shift calm and cooperative. Alert and oriented. VSS, O2 above 92% on 2L NC. Independent in room. Voiding wnl. C/o 2/10 pain to R lateral chest, treated per eMAR. Heat pad provided for comfort. LS clear upper lobes, fine crackles in mid-low lobes, and diminished bases. No c/o of chest pain or shortness of breath. Tele showing NSR. .
[2022-12-02] MEDS: TRAZODONE HCL 50 MG TABLET 100 MG PO (20:45)
[2022-12-03] VITALS (9 sets, daily range): BP systolic 96–138; BP diastolic 69–97; PULSE 63–144; RESP 7–20; TEMP 36.4–36.9; O2SAT 91–94
--- NOTE | 2022-12-03 06:46 | PC.NURSE ---
Shift note: The pt has been pleasant and cooperative. The pt has been on 2L of oxygen via NC with Spo2 in the 90s. C/O of minor to mild right chest pain- Pain has been managed with Heating pad and PRN Tylenol . Denied any acute distress . Denied left side chest pain.
[2022-12-03 07:19] LABS: Hematocrit 31.8 % (33.0-51.0); Hemoglobin* 10.4 gm/dL (12.0-16.0); Mean Corpuscular HGB Conc 33 gm/dL (32-36); Mean Corpuscular Hemoglobin 33 pg (26-34); Mean Corpuscular Volume 100 fL (80-100); Platelet Count* 306 K/uL (140-440); Red Blood Count 3.19 m/uL (4.00-5.20); White Blood Count* 7.29 K/uL (4.50-11.00)
[2022-12-03 07:22] LABS: Slide Review Reflex No
[2022-12-03 07:44] LABS: INR 1.05 (0.91-1.10); Prothrombin Time 14.3 Seconds
[2022-12-03] MEDS: SODIUM CHLORIDE 0.9 % (FLUSH) 10 ML SYRINGE 5 ML IVF ×2 (09:00→22:03)
[2022-12-03 09:21] LABS: Albumin* 3.1 g/dL (3.3-5.0)
[2022-12-03 09:24] LABS: Cholesterol* 148 mg/dL (90-199); Lactate Dehydrogenase* 160 U/L (120-246); Total Protein* 6.5 g/dL (6.0-8.3)
[2022-12-03] MEDS: CALCIUM CARBONATE 500 MG TABLET PO (09:36)
[2022-12-03] MEDS: BUPRENORPHINE-NALOX 8-2MG FILM 2 EACH SUBLINGUAL (09:36)
[2022-12-03] MEDS: ESCITALOPRAM 10 MG TABLET 20 MG PO (09:36)
[2022-12-03] MEDS: FOLIC ACID 1 MG TABLET PO (09:37)
[2022-12-03] MEDS: lamoTRIgine 100 MG TABLET 200 MG PO (09:37)
[2022-12-03 09:52] LABS: Prothrombin Time 13.8 Seconds
[2022-12-03] MEDS: ACETAMINOPHEN 325 MG TABLET 975 MG PO ×2 (11:19→19:11)
[2022-12-03] MEDS: 0.9 % SODIUM CHLORIDE 1000 ml 1,000 ML IV (12:13)
--- NOTE | 2022-12-03 13:25 | P.GSCN_ITS ---
History of Present Illness Consult details Date Seen: 12/03/22 Consult date: 12/03/22 Narrative: Patient presented to the emergency department with increasing shortness of breath and right-sided chest pain. The pain is present with pressure to the right side of her chest or deep breath. She states that the pain has been going on for about 2 days. She was recently hospitalized at [facility] (11/06- 11/11) for influenza and pneumonia. She was subsequently transferred to [facility] after having severe epistasis and concern for respiratory failure (11/11--11/16). She was discharged at that time to home on supplemental oxygen, but has successfully weaned off. Her most recent symptoms have been the pain and shortness of breath described above, as well as bloody sputum with coughing. Denies any fevers or chills. She has a history of blebs secondary to COPD. She reports having a bled rupture about 7 years ago, resulting in a chest tube on her left side. She does have a significant smoking history, but quit 15 years earlier. She is on anticoagulation for history of antiphospholipid syndrome and bilateral PE. Her Coumadin has been held since admission with most recent INR less than 1.5. Review of Systems Status of ROS: Reports: 6 or more systems reviewed and unremarkable except as noted in History and below [facility] Medical History (Updated 12/02/22 @ 16:55 by Tk Reece MD) Anxiety Atrophic vaginitis Bipolar disorder Chronic bullous emphysema (05/23/13) Depression History of ADHD History of colitis History of narcotic use History of pulmonary embolism Insomnia Lupus anticoagulant positive Peripheral venous insufficiency (05/23/13) Spontaneous pneumothorax (2005) Surgical History History of endometrial ablation (05/19/08) History of excision of mass (08/22/17) History of hand surgery (12/03/19) Social History (Updated 12/01/22 @ 16:56 by Melanie Petty MD) Narrative: Lives with Chris (medical decision maker, if needed) in [place], adult children. Baby-sits grandchildren. Remote history of smoking, quit > 10 years ago. Occasionally chews nicotine gum. No alcohol use. Highest level of school completed/degree received: high school graduate Smoking Status: Former smoker How often do you have a drink containing alcohol: never AUDIT-C Alcohol total score: 0 Non-prescribed substance use: denies use Caffeine: No service: No Meds Home Medications and Allergies Home Medications Medication Instructions Recorded Confirmed Type buprenorphine 8 mg-naloxone 2 mg 3 film sublingual DAILY 10/16/22 12/01/22 History sublingual film calcium carbonate 600 mg calcium 600 mg PO DAILY 10/16/22 12/01/22 History (1,500 mg) tablet (Calcium) escitalopram oxalate 20 mg tablet 20 mg PO DAILY 10/16/22 12/01/22 History folic acid 1 mg tablet 1 mg PO DAILY 10/16/22 12/01/22 History glucosamine sulfate 1,000 mg tablet 1,000 mg PO DAILY 10/16/22 12/01/22 History lamotrigine 200 mg tablet 200 mg PO DAILY 10/16/22 12/01/22 History lidocaine 5 % topical patch 1 patch topical DAILY PRN 10/16/22 12/01/22 History multivitamin 1 tab PO DAILY 10/16/22 12/01/22 History trazodone 100 mg tablet 100 mg PO HS 10/16/22 12/01/22 History warfarin 2.5 mg tablet 2.5 - 5 mg PO DAILY 10/16/22 12/01/22 History albuterol sulfate 90 mcg/actuation 2 puff inhalation Q4H PRN 12/01/22 12/01/22 History aerosol inhaler clonidine HCl 0.1 mg tablet 0.1 mg PO Q8H PRN anxiety 12/01/22 12/01/22 History methocarbamol 500 mg tablet 500 - 1,000 mg PO Q8H PRN pain 12/01/22 12/01/22 History fluticasone 100 mcg-salmeterol 50 1 inh inhalation BID 12/03/22 12/03/22 History mcg/dose blistr powdr for inhalation (Advair Diskus) Allergies Allergy/AdvReac Type Severity Reaction Status Date / Time buspirone Allergy Mild Unknown Verified 10/16/22 09:50 celecoxib Allergy Mild Nausea Verified 10/16/22 09:50 gabapentin Allergy Mild Unknown Verified 10/16/22 09:50 naproxen Allergy Mild Nausea Verified 10/16/22 09:50 nortriptyline Allergy Mild Unknown Verified 10/16/22 09:50 paroxetine Allergy Mild Unknown Verified 10/16/22 09:50 piroxicam Allergy Mild Unknown Verified 10/16/22 09:50 prednisone Allergy Mild Unknown Verified 10/16/22 09:50 Exam Narrative: Exam Narrative: General: Alert and oriented, no acute distress Respiratory: Maintained on nasal cannula. Decreased breath sounds left lung base, breath sounds present throughout right lung. Chest: Pinpoint tenderness on the lateral aspect of the right chest, pain is reproducible with palpation. CV: Regular rhythm rate, well perfused Const: Vital Signs, click to edit/add: Vital Signs - 24 hr 12/02/22 15:00 12/02/22 15:00 12/02/22 15:00 Temperature Pulse Rate Pulse Rate [Left P ulse Oximeter] 75 84 Respiratory Rate 16 18 18 Blood Pressure [Le ft Arm] 131/79 Pulse Oximetry 90 90 Oxygen Delivery Me thod Nasal Cannula Nasal Cannula Oxygen Flow Rate 2 2 12/02/22 19:00 12/02/22 21:04 12/02/22 23:45 Temperature 98.2 F Pulse Rate 85 Pulse Rate [Left P ulse Oximeter] 85 86 Respiratory Rate 18 18 Blood Pressure [Le ft Arm] 121/81 Pulse Oximetry 92 Oxygen Delivery Me thod Nasal Cannula Oxygen Flow Rate 2 12/02/22 23:45 12/02/22 23:45 12/03/22 04:30 Temperature 98.7 F 97.6 F Pulse Rate Pulse Rate [Left P ulse Oximeter] 86 65 Respiratory Rate 18 18 18 Blood Pressure [Le ft Arm] 126/83 104/69 Pulse Oximetry 91 91 92 Oxygen Delivery Me thod Nasal Cannula Nasal Cannula Nasal Cannula Oxygen Flow Rate 2 2 2 12/03/22 04:59 12/03/22 07:00 12/03/22 07:00 Temperature Pulse Rate 63 67 Pulse Rate [Left P ulse Oximeter] 65 Respiratory Rate 18 Blood Pressure [Le ft Arm] Pulse Oximetry Oxygen Delivery Me thod Oxygen Flow Rate 12/03/22 07:00 12/03/22 07:00 Temperature Pulse Rate Pulse Rate [Left P ulse Oximeter] 67 Respiratory Rate 7 L 7 L Blood Pressure [Le ft Arm] 108/71 Pulse Oximetry 94 94 Oxygen Delivery Me thod Nasal Cannula Nasal Cannula Oxygen Flow Rate 2 2 Results Labs Labs: Abnormal lab results 12/02/22 12/03/22 12/03/22 Range/Units 15:56 06:15 09:23 RBC 3.19 L (4.00-5.20) m/uL Hgb 10.4 L (12.0-16.0) gm/dL Hct 31.8 L (33.0-51.0) % INR 1.36 H (0.91-1.10) Albumin 3.1 L (3.3-5.0) g/dL Diabetes panel 12/03/22 Range/Units 09:23 Total Protein 6.5 (6.0-8.3) g/dL Albumin 3.1 L (3.3-5.0) g/dL Calcium panel 12/03/22 Range/Units : Albumin 3.1 L (3.3-5.0) g/dL Adrenal panel 12/03/22 Range/Units 09:23 Total Protein 6.5 (6.0-8.3) g/dL Albumin 3.1 L (3.3-5.0) g/dL All other labs normal. Imaging CT scan - chest: report reviewed and image reviewed Assessment and Plan Assessment and plan (1) Pleural effusion: Status: Acute Plan Patient is a 62-year-old female, with shortness of breath and evidence on CT scan of increasing pleural effusion. Patient does have a complex pulmonary history, including presence of multiple cysts and blebs on imaging, as well as a recent hospitalization for influenza and pneumonia. When comparing the CT scan from 11/26/22 to the most recent 12/01/2022, there is increased fluid within the pleural space and evidence of a complex fluid collection of the right lung. I have been requested by the hospitalist to remove the fluid for both diagnostic and therapeutic purposes. Patient is at increased risk for complication associated with the procedure, given the above history, as well as her anticoagulation. Her Coumadin has been reversed and is now less than 1.5. Risks and benefits of thoracentesis were reviewed at length with the patient. Risks included, but were not limited to: Bleeding, infection, risk of damage to surrounding structures and the possible need for additional procedures. All questions and concerns were addressed with patient agreeing to proceed. During the procedure minimal amount of fluid was removed. The fluid was very bloody in appearance. Patient tolerated procedure well with no reported increase in pain or SOB. Post procedure CXR did demonstrate a moderate size pneumothorax. This is likely secondary to injury during the procedure vs air that entered the drain during the procedure. I do think the fluid around the patients lung is a complex hemothorax, this was likely present prior to the procedure and not a result of the procedure. Patient may benefit from pigatil placement and TPAse. Recommend transfer for consultation by IR or thoracic surgery. Patient was closely monitored. No change in symptoms over the last hour and repeat CXR demonstrating stable pneumothorax. No need for chest tube placement at this time. For any acute clinical changes recommend repeating CXR and calling the front line leader surgeon. General Surgery Procedures Thoracentesis Time Out Performed: Yes Imaging guidance used ?: Yes Indications: Pleural effusion Procedure: diagnostic thoracentesis Location: right Local anesthetic used: lidocaine Amount of anesthesia used (mL): 7 Bedside ultrasound used: yes, fluid confirmed and location marked Preparation: sterile prep and drape Amount of fluid obtained (mL): 25 Fluid: bloody and sent to lab for analysis Post Procedure Exam: awake, alert Patient Tolerated Procedure: well and other Complications: other Additional Details: Pneumothorax seen post procedure.
--- NOTE | 2022-12-03 14:30 | CRLHL7_ITS ---
For Patients: As a result of the Century Cures Act, medical imaging exams and procedure reports are released immediately into your electronic medical record. You may view this report before your referring provider. If you have questions, please contact your health care provider. INDICATION: Status post thoracentesis COMPARISON: Portions of a CT from December 01, 2022 TECHNIQUE: A single view of the chest was acquired FINDINGS: TUBES AND LINES: None. HEART AND MEDIASTINUM: Enlarged heart unchanged appearance. LUNGS AND PLEURAL SPACES: Right midlung and bibasilar airspace process probably atelectasis.Small persistent right effusion. Small to moderate right pneumothorax with an apical air gap of about 2 centimeters. OSSEOUS STRUCTURES: Age-appropriate appearance. No acute focal finding.Scoliosis IMPRESSION: Small persistent right pleural effusion. Small to moderate pneumothorax with an apical air gap of about 2 centimeters. No midline shift. Bibasilar atelectasis. Dictated by Amadeo Cochran MD @ 12/03/2022 3:27:46 PM (Electronically Signed)
[2022-12-03] MEDS: BUPRENORPHINE-NALOX 8-2MG FILM 1 EACH SUBLINGUAL (15:15)
[2022-12-03] MEDS: cloNIDine HCL 0.1 MG TABLET PO ×2 (15:15→23:02)
--- NOTE | 2022-12-03 15:25 | CRLHL7_ITS ---
For Patients: As a result of the Century Cures Act, medical imaging exams and procedure reports are released immediately into your electronic medical record. You may view this report before your referring provider. If you have questions, please contact your health care provider. INDICATION: Follow-up pneumothorax COMPARISON: December 03, 2022 at 2:25 p.m. TECHNIQUE: Single-view examination December 03, 2022 at 3:29 p.m. FINDINGS: TUBES AND LINES: None. HEART AND MEDIASTINUM: Enlarged heart unchanged in overall appearance. LUNGS AND PLEURAL SPACES: Atelectasis in the right mid lung and both bases, right greater than left, unchanged. Small persistent right effusion unchanged. Small to moderate right pneumothorax with an apical air gap again measuring 2 centimeters. No change since the earlier examination. OSSEOUS STRUCTURES: Age-appropriate appearance. No acute focal finding. IMPRESSION: Small to moderate right pneumothorax with an apical air gap again measuring 2 centimeters. No interval change. Dictated by Amadeo Cochran MD @ 12/03/2022 3:44:54 PM (Electronically Signed)
--- NOTE | 2022-12-03 15:29 | PC.NURSE ---
Nursing Care Hours: [id number] Pt this shift calm and cooperative, alert and oriented. Stable VSS on 2L O2 and resting. HR increased to 140's while standing brushing hair. MD ordered orthostatics, pt failed. 1L NS bolus given over one hour per order, orthostatics improved greatly and pt stating i feel more perky now. Thoracentesis done at the bedside, VSS remained stable through procedure, pt tolerated well. Results of procedure changed POC and now looking for transfer to another facility. Pt understands and states she needs some time to let it sink in and process it. Otherwise pt positive. Eating and drinking well, voiding but no BM. Independent in room. Rating pain 2/10, treated with tylenol.
[2022-12-03 16:02] LABS: BF Clarity* Cloudy; BF Color Grossly Bloody; BF Total Volume* 10
[2022-12-03 16:03] LABS: Albumin Body Fluid* 2.3 gm/dL; Amylase Body Fluid* 48 U/L; Cholesterol Body Fluid* 98 mg/dL; Glucose Body Fluid* 92 mg/dL; LDH Body Fluid* 1150 U/L
[2022-12-03] MEDS: SENNOSIDES/DOCUSATE TABLET 1 TAB PO ×2 (16:05→22:03)
[2022-12-03] MEDS: IPRAT-ALBUT 0.5-2.5 MG/3 ML NEB 1 NEB IH (16:06)
--- NOTE | 2022-12-03 16:15 | P.IMPN_ITS ---
Progress Note: A&P Assessment and plan (1) Pleural effusion: Status: Acute (2) Acute respiratory failure with hypoxia: Problem details: - likely related to findings on admission CT (subpulmonic loculated L hydropneumothorax, atelectasis, small loculated R pleural effusion) - reviewed case with Dr. Edwards of general surgery; will see patient in anticipation of thoracentesis tomorrow morning, pending INR - does not appear to have acute infectious process contributing, recently completed course of abx. Deferring abx on admit, low threshold to initiate pending clinical course - continue supplemental oxygen as needed, RT referral Status: Acute (3) Hydropneumothorax: Status: Acute (4) Elevated troponin: Problem details: - no chest pain or acute changes to EKG, likely demand ischemia from above noted lung processes - follow troponin to peak, telemetry, TTE ordered with preliminary view demonstrating no regional wall motion abnormalities. 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 Much improved with normal saline IV fluid bolus. Status: Acute Plan 1. Discussed with Dr. Ana M Edwards, general surgeon, who performed the needle thoracentesis. 2. Patient would potentially benefit from a chest tube. Dr. Edwards is reluctant to proceed with this at this time given complexity of the patient's underlying lung disease and conditions. 3. Called and discussed the case with the transfer service at [place], [place]. Still waiting a call back from their animal care supervisor or interventional radiologist. 4. Dr. Lambert has spoken with the patient about this. 5. Will hold off on enoxaparin or warfarin or any other anticoagulation therapy at this time while we are trying to figure out a safe discharge plan for her. Time Spent With Patient Total time spent: 40 minutes Subjective Time Seen by Provider: 11:00 Date Seen: 12/03/22 Interval history: Hospital day 3. Dyspnea stable. Not any worse. For the most part she does not have dyspnea. She notes that intermittently she does have a sense of dyspnea. Dyspnea worsens with activity. Dyspnea on oppositional. Does not relate dyspnea to coughing or gagging or aspirating. Also notes a sense of orthostasis if she moves too quickly. Did have orthostatic hypotension with blood pressure and heart rate measurements as well as symptomatically earlier today. 1 L normal saline IV given and her symptoms resolved. Blood pressure and heart rate much improved after the IV fluid bolus as well. Exam Narrative: Exam Narrative: No acute distress, alert, oriented to self, place, time, situation. Friendly, cooperative, articulate. Mood and affect are congruent. Acknowledges she does not use her CPAP machine at home. Bibasilar rales. No wheezing or rhonchi. Heart tones with regular rhythm, normal S1-S2. Abdomen with active bowel sounds, soft, nontender. Extremities without edema. Independent transfer, station, and gait. Const: Vital Signs, click to edit/add: Vital Signs - 24 hr 12/02/22 19:00 12/02/22 21:04 12/02/22 23:45 Temperature 98.2 F Pulse Rate 85 Pulse Rate [Left P ulse Oximeter] 85 86 Pulse Rate [orthos tatic lying Blood Pressure Cuff] Pulse Rate [orthos tatic sitting Left Blood Pressure Cu ff] Pulse Rate [orthos tatic standing Lef t Blood Pressure C uff] Respiratory Rate 18 18 Blood Pressure [Le ft Arm] 121/81 Blood Pressure [or thostatic lying Le ft Arm] Blood Pressure [or thostatic sitting Left Arm] Blood Pressure [or thostatic standing Left Arm] Pulse Oximetry 92 Oxygen Delivery Me thod Nasal Cannula Oxygen Flow Rate 2 Fraction of Inspir ed Oxygen 12/02/22 23:45 12/02/22 23:45 12/03/22 04:30 Temperature 98.7 F 97.6 F Pulse Rate Pulse Rate [Left P ulse Oximeter] 86 65 Pulse Rate [orthos tatic lying Blood Pressure Cuff] Pulse Rate [orthos tatic sitting Left Blood Pressure Cu ff] Pulse Rate [orthos tatic standing Lef t Blood Pressure C uff] Respiratory Rate 18 18 18 Blood Pressure [Le ft Arm] 126/83 104/69 Blood Pressure [or thostatic lying Le ft Arm] Blood Pressure [or thostatic sitting Left Arm] Blood Pressure [or thostatic standing Left Arm] Pulse Oximetry 91 91 92 Oxygen Delivery Me thod Nasal Cannula Nasal Cannula Nasal Cannula Oxygen Flow Rate 2 2 2 Fraction of Inspir ed Oxygen 12/03/22 04:59 12/03/22 07:00 12/03/22 07:00 Temperature Pulse Rate 63 67 Pulse Rate [Left P ulse Oximeter] 65 Pulse Rate [orthos tatic lying Blood Pressure Cuff] Pulse Rate [orthos tatic sitting Left Blood Pressure Cu ff] Pulse Rate [orthos tatic standing Lef t Blood Pressure C uff] Respiratory Rate 18 Blood Pressure [Le ft Arm] Blood Pressure [or thostatic lying Le ft Arm] Blood Pressure [or thostatic sitting Left Arm] Blood Pressure [or thostatic standing Left Arm] Pulse Oximetry Oxygen Delivery Me thod Oxygen Flow Rate Fraction of Inspir ed Oxygen 12/03/22 07:00 12/03/22 07:00 12/03/22 11:00 Temperature Pulse Rate Pulse Rate [Left P ulse Oximeter] 67 95 Pulse Rate [orthos tatic lying Blood Pressure Cuff] Pulse Rate [orthos tatic sitting Left Blood Pressure Cu ff] Pulse Rate [orthos tatic standing Lef t Blood Pressure C uff] Respiratory Rate 7 L 7 L 16 Blood Pressure [Le ft Arm] 108/71 130/95 H Blood Pressure [or thostatic lying Le ft Arm] Blood Pressure [or thostatic sitting Left Arm] Blood Pressure [or thostatic standing Left Arm] Pulse Oximetry 94 94 94 Oxygen Delivery Me thod Nasal Cannula Nasal Cannula Nasal Cannula Oxygen Flow Rate 2 2 2 Fraction of Inspir ed Oxygen 12/03/22 11:24 12/03/22 13:30 12/03/22 15:00 Temperature Pulse Rate Pulse Rate [Left P ulse Oximeter] Pulse Rate [orthos tatic lying Blood Pressure Cuff] 95 88 Pulse Rate [orthos tatic sitting Left Blood Pressure Cu ff] 115 H 90 Pulse Rate [orthos tatic standing Lef t Blood Pressure C uff] 144 H 108 H Respiratory Rate Blood Pressure [Le ft Arm] Blood Pressure [or thostatic lying Le ft Arm] 130/95 H 128/71 Blood Pressure [or thostatic sitting Left Arm] 133/97 H 129/85 Blood Pressure [or thostatic standing Left Arm] 114/91 H 138/89 Pulse Oximetry 91 Oxygen Delivery Me thod Nasal Cannula Oxygen Flow Rate Fraction of Inspir ed Oxygen 2 12/03/22 15:00 Temperature 97.7 F Pulse Rate Pulse Rate [Left P ulse Oximeter] 104 H Pulse Rate [orthos tatic lying Blood Pressure Cuff] Pulse Rate [orthos tatic sitting Left Blood Pressure Cu ff] Pulse Rate [orthos tatic standing Lef t Blood Pressure C uff] Respiratory Rate 20 Blood Pressure [Le ft Arm] 115/83 Blood Pressure [or thostatic lying Le ft Arm] Blood Pressure [or thostatic sitting Left Arm] Blood Pressure [or thostatic standing Left Arm] Pulse Oximetry 91 Oxygen Delivery Me thod Nasal Cannula Oxygen Flow Rate 2 Fraction of Inspir ed Oxygen Documenting provider has reviewed patient's vital signs: yes Labs Labs: Laboratory Results - last 24 hr 12/02/22 12/03/22 12/03/22 15:56 05:50 06:15 WBC 7.29 RBC 3.19 L Hgb 10.4 L Hct 31.8 L MCV 100 MCH 33 MCHC 33 Plt Count 306 INR 1.36 H 1.00 Lactate Dehydrogenase Total Protein Albumin Cholesterol Fluid Volume Fluid Color Fluid Appearance Fluid Glucose Fluid Albumin Fluid LDH Fluid Amylase Fluid Cholesterol 12/03/22 12/03/22 12/03/22 06:15 08:04 09:23 WBC RBC Hgb Hct MCV MCH MCHC Plt Count INR 1.05 Lactate Dehydrogenase 160 Total Protein 6.5 Albumin 3.1 L Cholesterol 148 Fluid Volume 10 Fluid Color Grossly Bloody A Fluid Appearance Cloudy A Fluid Glucose 92 Fluid Albumin 2.3 Fluid LDH 1150 Fluid Amylase 48 Fluid Cholesterol 98
[2022-12-03 16:20] LABS: pH Body Fluid* 8.5
[2022-12-03 16:29] LABS: Mononuclear WBC Body Fluid* 58 %; Polynuclear WBC Body Fluid* 42 %; RBC, Body Fluid* 421000 Cells/uL; WBC, Body Fluid* 1103 Cells/uL
[2022-12-03 16:41] LABS: Body Fluid Total Protein* 4.7 gm/dL
[2022-12-03] MEDS: ENOXAPARIN 80 MG/0.8 ML INJ 70 MG SUBCUT (19:48)
[2022-12-03] MEDS: CARBOXYMETHYLCELLULOSE (REFRESH PLUS) TEARS 1 DROP EYE-BOTH (19:49)
[2022-12-03] MEDS: TRAZODONE HCL 50 MG TABLET 100 MG PO (22:03)
--- NOTE | 2022-12-03 22:09 | PC.NURSE ---
Per Dr. Castillo, continue to call [facility] at this time only. Call approx [facility] to see if there is bed availability. Spoke with pt placement around 1800 and 2200, no beds at this time.
--- NOTE | 2022-12-03 22:45 | PC.NURSE ---
End of Shift: Patient pleasant and cooperative. Afebrile. Rating pain 2/10 and PRN Tylenol given x1. O2 sats 91-93% on 2L NC. Up independently in room. Tolerating regular diet with no nausea.
--- NOTE | 2022-12-03 23:49 | PC.NURSE ---
Called [facility] at 2200, no beds at this time.
[2022-12-04] VITALS (13 sets, daily range): BP systolic 93–120; BP diastolic 66–79; PULSE 70–124; RESP 12–20; TEMP 36.1–36.7; O2SAT 91–99
[2022-12-04] MEDS: CARBOXYMETHYLCELLULOSE (REFRESH PLUS) TEARS 1 DROP EYE-BOTH ×3 (00:08→22:42)
[2022-12-04 06:38] LABS: Hematocrit 30.6 % (33.0-51.0); Hemoglobin* 9.9 gm/dL (12.0-16.0); Mean Corpuscular HGB Conc 32 gm/dL (32-36); Mean Corpuscular Hemoglobin 32 pg (26-34); Mean Corpuscular Volume 99 fL (80-100); Platelet Count* 288 K/uL (140-440); Red Blood Count 3.08 m/uL (4.00-5.20); White Blood Count* 6.67 K/uL (4.50-11.00)
[2022-12-04 06:43] LABS: Slide Review Reflex No
--- NOTE | 2022-12-04 06:43 | PC.NURSE ---
Pt alert and oriented x3, pleasant and cooperative. Pt posterior and lower anterior lung sounds have fine crackles and are diminished. Pt 02 Sats are between 91-95%.?Patient reports 2/10 pain in back, PRN medications discussed and pt refused. Pt denies chest pain and N/V. Pt reports SOB with exertion but denies SOB at rest. Pt is up with A1 with gait belt and walker. Tolerating a regular diet. ??
[2022-12-04 06:52] LABS: INR 0.92 (0.91-1.10); Prothrombin Time 12.9 Seconds
[2022-12-04] MEDS: lamoTRIgine 100 MG TABLET 200 MG PO (09:02)
[2022-12-04] MEDS: CALCIUM CARBONATE 500 MG TABLET PO (09:02)
[2022-12-04] MEDS: SENNOSIDES/DOCUSATE TABLET 1 TAB PO ×2 (09:02→22:50)
[2022-12-04] MEDS: ESCITALOPRAM 10 MG TABLET 20 MG PO (09:03)
[2022-12-04] MEDS: FOLIC ACID 1 MG TABLET PO (09:03)
[2022-12-04] MEDS: BUPRENORPHINE-NALOX 8-2MG FILM 2 EACH SUBLINGUAL (09:03)
[2022-12-04] MEDS: ACETAMINOPHEN 325 MG TABLET 975 MG PO ×3 (09:11→22:51)
[2022-12-04] MEDS: SODIUM CHLORIDE 0.9 % (FLUSH) 10 ML SYRINGE 5 ML IVF ×2 (09:12→22:41)
[2022-12-04] MEDS: IPRAT-ALBUT 0.5-2.5 MG/3 ML NEB 1 NEB IH ×2 (09:16→22:41)
--- NOTE | 2022-12-04 09:59 | CRLHL7_ITS ---
For Patients: As a result of the Century Cures Act, medical imaging exams and procedure reports are released immediately into your electronic medical record. You may view this report before your referring provider. If you have questions, please contact your health care provider. INDICATION: RIGHT PNEUMOTHORAX S/P THORACENTESIS 12/03 TECHNIQUE: Chest 1 view COMPARISON: 12/03/2022 FINDINGS: Slightly decreased right pneumothorax. Small right pleural effusion with adjacent parenchymal densities. Stable retrocardiac densities. Mediastinum similar. Scoliotic deformity. IMPRESSION: Slightly decreased size of the right apical pneumothorax, now measuring 1.5 cm compared to 2.0 cm. Dictated by Nick Myers MD @ 12/04/2022 11:03:59 AM (Electronically Signed)
--- NOTE | 2022-12-04 14:01 | RESP.RT ---
Patient sitting up in bed on Nasal Cannula 2 Lpm, changed to HFNC FiO2 100%, Flow 25 Lpm, Temperature 34 degrees (C). Patient tolerating well comfortable on this settings. PEP therapy with Aerobika; explained, information, and demonstration on use, patient returned demonstration with good effort and chest shake, had patient feel chest to help understand use of Aerobika, patient verbally states so.
[2022-12-04] MEDS: BUPRENORPHINE-NALOX 8-2MG FILM 1 EACH SUBLINGUAL (14:08)
[2022-12-04] MEDS: cloNIDine HCL 0.1 MG TABLET PO ×2 (14:11→22:42)
[2022-12-04] MEDS: 0.9 % SODIUM CHLORIDE 1000 ml 1,000 ML IV (14:37)
--- NOTE | 2022-12-04 14:40 | PC.NURSE ---
At beginning of shift patient on 2L O2 per NC. Transitioned by RT to High Flow O2 on 25 LPM at 100% FiO2. Pain controlled with Tylenol. Tolerating regular diet with no c/o n/v. Patient had episode of HR increasing to 150-180's. MD updated and EKG completed. NS 1000 ml bolus administered.
--- NOTE | 2022-12-04 15:47 | P.IMPN_ITS ---
Progress Note: A&P Assessment and plan (1) Pleural effusion: Status: Acute (2) Acute respiratory failure with hypoxia: Problem details: - likely related to findings on admission CT (subpulmonic loculated L hydropneumothorax, atelectasis, small loculated R pleural effusion) - reviewed case with Dr. Edwards of general surgery, who attempted needle thoracentesis. Right red blood was obtained only. Procedure stop. Subsequently found to have developed a pneumothorax. - does not appear to have acute infectious process contributing, recently completed course of abx. Deferring abx on admit, low threshold to initiate pending clinical course - continue supplemental oxygen as needed, RT referral - does use oxygen at home. Will likely need to continue this when she returns home. Status: Acute (3) Hydropneumothorax: Problem details: She will keep her appointment with her primary care physician for this coming 12/06/2022, Dr. Torres. She will keep appoint with her software database architect at [facility] next week as already planned. Status: Acute (4) Elevated troponin: Problem details: - no chest pain or acute changes to EKG, likely demand ischemia from above noted lung processes - follow troponin to peak, telemetry, TTE ordered with preliminary view demonstrating no regional wall motion abnormalities. Status: Acute (5) History of pulmonary embolism: Problem details: - massive bilateral, 2005 - resume her enoxaparin anticoagulation right now. - will hold off on restarting her warfarin therapy at this time. Status: Acute (6) Lupus anticoagulant positive: Problem details: - on Warfarin ordinarily. Will switch to enoxaparin as were trying to prepare the patient for possible diagnostic interventional efforts including needle thoracentesis if warranted. Status: Chronic (7) Chronic bullous emphysema: Problem details: Continue with current efforts to support this. Status: Chronic (8) History of narcotic use: Problem details: - on suboxone as outpatient, will continue this during stay Status: Acute (9) Anxiety: Problem details: - continue home meds - consider decreasing the dose of the clonidine which can cause her to have her hypotensive episodes as well. 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 Will administer another 1 L of normal saline IV fluid bolus. Status: Acute Assessment and Plan: Monitor orthostatic blood pressures and pulses Plan 1. Patient may not need transfer for chest tube. 2. Will try 100% oxygen with high-flow humidified oxygen at 20 liters/minute with FiO2 of 100%. 3. Chest x-ray tomorrow morning to reassess pneumothorax. 4. If her condition should worsen and she needs to be transferred for chest tube will need to continue to try this at that juncture. 5. IV fluid bolus for her dehydration. 6. Consider decreasing the dose of the clonidine and adding a low-dose beta- shi. Reviewed with patient and she understands. Time Spent With Patient Total time spent: 40 minutes Subjective Time Seen by Provider: 10:30 Date Seen: 12/04/22 Interval history: Hospital day 4. Did well overnight. She had the ultrasound-guided needle thoracentesis yesterday which only lisa out bright red blood. The procedure was stopped as such. Postprocedure x-ray demonstrated new right pneumothorax about 2 cm in the apex, wrapping laterally. Has done well overnight in this regard. No worsening dyspnea. Dyspnea stable. Not any worse. If anything she thinks her sense of dyspnea is improved now compared to when she 1st came in. For the most part she does not have dyspnea. She notes that intermittently she does have a sense of dyspnea. Dyspnea worsens with activity. Dyspnea on oppositional. Does not relate dyspnea to coughing or gagging or aspirating. Also notes again a sense of or thostasis if she moves too quickly. Did have orthostatic hypotension with blood pressure and heart rate measurements as well as symptomatically earlier today. 1 L normal saline IV given and her symptoms resolved. Repeat orthostatic blood pressures and heart rates are still pending right now Exam Narrative: Exam Narrative: Appears comfortable. No acute distress. More visibly concerned about her condition today, does break into spontaneous tearing at times when speaking with me. Alert, oriented to self, place, time, situation. Articulate, cooperative, friendly. Mood and affect are congruent. Bibasilar rales unchanged from yesterday. No wheezing or rhonchi. Heart tones with regular rhythm. Abdomen with active bowel sounds. No CVA tenderness. Independent transfer, station, gait. No focal motor neurologic deficits. Const: Vital Signs, click to edit/add: Vital Signs - 24 hr 12/03/22 19:00 12/03/22 23:00 12/03/22 23:00 Temperature 98.4 F Pulse Rate Pulse Rate [Left P ulse Oximeter] 90 83 Pulse Rate [orthos tatic lying Blood Pressure Cuff] Pulse Rate [orthos tatic sitting Left Blood Pressure Cu ff] Pulse Rate [orthos tatic standing Lef t Blood Pressure C uff] Respiratory Rate 18 16 16 Blood Pressure [Le ft Arm] 104/86 Blood Pressure [or thostatic lying Le ft Arm] Blood Pressure [or thostatic sitting Left Arm] Blood Pressure [or thostatic standing Left Arm] Pulse Oximetry 93 91 Oxygen Delivery Me thod Nasal Cannula Nasal Cannula Oxygen Flow Rate 2 2 Fraction of Inspir ed Oxygen 12/03/22 23:00 12/04/22 02:04 12/04/22 03:00 Temperature 97.9 F 98.0 F Pulse Rate 70 Pulse Rate [Left P ulse Oximeter] 93 70 Pulse Rate [orthos tatic lying Blood Pressure Cuff] Pulse Rate [orthos tatic sitting Left Blood Pressure Cu ff] Pulse Rate [orthos tatic standing Lef t Blood Pressure C uff] Respiratory Rate 16 12 Blood Pressure [Le ft Arm] 96/77 106/66 Blood Pressure [or thostatic lying Le ft Arm] Blood Pressure [or thostatic sitting Left Arm] Blood Pressure [or thostatic standing Left Arm] Pulse Oximetry 91 94 Oxygen Delivery Me thod Nasal Cannula Nasal Cannula Oxygen Flow Rate 2 2 Fraction of Inspir ed Oxygen 12/04/22 07:00 12/04/22 07:00 12/04/22 08:00 Temperature Pulse Rate 92 Pulse Rate [Left P ulse Oximeter] 87 Pulse Rate [orthos tatic lying Blood Pressure Cuff] Pulse Rate [orthos tatic sitting Left Blood Pressure Cu ff] Pulse Rate [orthos tatic standing Lef t Blood Pressure C uff] Respiratory Rate 20 20 Blood Pressure [Le ft Arm] Blood Pressure [or thostatic lying Le ft Arm] Blood Pressure [or thostatic sitting Left Arm] Blood Pressure [or thostatic standing Left Arm] Pulse Oximetry 91 Oxygen Delivery Me thod Nasal Cannula Oxygen Flow Rate 2 Fraction of Inspir ed Oxygen 12/04/22 08:00 12/04/22 12:00 12/04/22 11:15 Temperature 97.4 F L Pulse Rate Pulse Rate [Left P ulse Oximeter] 87 Pulse Rate [orthos tatic lying Blood Pressure Cuff] 101 H Pulse Rate [orthos tatic sitting Left Blood Pressure Cu ff] 113 H Pulse Rate [orthos tatic standing Lef t Blood Pressure C uff] 124 H Respiratory Rate 20 Blood Pressure [Le ft Arm] 120/75 Blood Pressure [or thostatic lying Le ft Arm] 112/69 Blood Pressure [or thostatic sitting Left Arm] 96/79 Blood Pressure [or thostatic standing Left Arm] 93/71 Pulse Oximetry 91 Oxygen Delivery Me thod Nasal Cannula Oxygen Flow Rate 2 25 Fraction of Inspir ed Oxygen 100 12/04/22 12:00 12/04/22 11:15 12/04/22 14:05 Temperature 97.0 F L Pulse Rate Pulse Rate [Left P ulse Oximeter] 101 H Pulse Rate [orthos tatic lying Blood Pressure Cuff] Pulse Rate [orthos tatic sitting Left Blood Pressure Cu ff] Pulse Rate [orthos tatic standing Lef t Blood Pressure C uff] Respiratory Rate 20 20 Blood Pressure [Le ft Arm] 112/69 Blood Pressure [or thostatic lying Le ft Arm] Blood Pressure [or thostatic sitting Left Arm] Blood Pressure [or thostatic standing Left Arm] Pulse Oximetry 93 98 Oxygen Delivery Me thod High Flow Nasal Ca nnula High Flow Nasal Ca nnula Oxygen Flow Rate 25 25 25 Fraction of Inspir ed Oxygen 100 100 100 Documenting provider has reviewed patient's vital signs: yes Labs Labs: Laboratory Results - last 24 hr 12/03/22 12/04/22 12/04/22 08:04 06:01 06:01 WBC 6.67 RBC 3.08 L Hgb 9.9 L Hct 30.6 L MCV 99 MCH 32 MCHC 32 Plt Count 288 INR 0.92 Fluid Volume 10 Fluid Color Grossly Bloody A Fluid Appearance Cloudy A Fluid pH 8.5 Fluid WBC 1103 Fluid RBC 633430 Fluid Polynuclear WBCs 42 Fluid Mononuclear WBCs 58 Fluid Glucose 92 Fluid Total Protein 4.7 Fluid Albumin 2.3 Fluid LDH 1150 Fluid Amylase 48 Fluid Cholesterol 98 Imaging Chest x-ray: Attestation: I have reviewed the pertinent imaging results. Radiologist's impression: Portable chest x-ray demonstrates a pneumothorax on the right side no worse or better from yesterday. ECG Attestation: I personally reviewed and interpreted this ECG as follows: Prior ECG tracings: not available for review Pacemaker model: Sinus tachycardia.
[2022-12-04] MEDS: ENOXAPARIN 80 MG/0.8 ML INJ 70 MG SUBCUT (20:12)
[2022-12-04] MEDS: TRAZODONE HCL 50 MG TABLET 100 MG PO (22:42)
--- NOTE | 2022-12-04 23:04 | PC.NURSE ---
End of Shift: Patient pleasant and cooperative. Afebrile. O2 sats mid to upper 90s on HFNC, settings per RT. States SOB has improved some and denies at rest. Tele showing NSR with rate in the 70s-80s. C/o pain up to 2/10 and PRN Tylenol given x2. Up independently in room. Tolerating regular diet with no nausea.
[2022-12-05] VITALS (12 sets, daily range): BP systolic 95–136; BP diastolic 67–87; PULSE 63–103; RESP 18–20; TEMP 36.4–36.8; O2SAT 90–99
[2022-12-05 06:10] LABS: HCO3 VBG 31 mmol/L (21-28); Lactate* 0.7 mmol/L (0.5-1.9); PCO2 VBG 53 mmHG (40-50); PO2 VBG 60.7 mmHG (25-47)
[2022-12-05 06:16] LABS: Hematocrit 29.7 % (33.0-51.0); Hemoglobin* 9.6 gm/dL (12.0-16.0); Mean Corpuscular HGB Conc 32 gm/dL (32-36); Mean Corpuscular Hemoglobin 32 pg (26-34); Mean Corpuscular Volume 100 fL (80-100); Platelet Count* 260 K/uL (140-440); Red Blood Count 2.98 m/uL (4.00-5.20)
[2022-12-05 06:18] LABS: Slide Review Reflex No
[2022-12-05 06:27] LABS: Chloride* 108 mmol/L (96-114); Potassium* 4.1 mmol/L (3.6-5.1); Sodium* 141 mmol/L (135-149)
[2022-12-05 06:30] LABS: Creatinine* 0.4 mg/dL (0.5-1.5); Est. Creatinine Clearance* 49.72; Estimated Glomerular Filt Rate 111 ml/min
[2022-12-05 06:31] LABS: Blood Urea Nitrogen* 7 mg/dL (7-30); Calcium* 9.3 mg/dL (8.4-10.6); Carbon Dioxide* 32 mmol/L (20-32); Glucose* 87 mg/dL (60-115); INR 0.93 (0.91-1.10); Phosphorus* 5.2 mg/dL (2.5-4.5)
[2022-12-05 06:34] LABS: C Reactive Protein* 7.8 mg/dL (0.5-1.0)
[2022-12-05 06:40] LABS: NT Pro B Type NatriureticPept* 298 pg/mL
--- NOTE | 2022-12-05 06:40 | PC.NURSE ---
VSS on 25L High flow oxygen. Patient is alert and oriented x3. Rated pain 3/10, declined pain med. Pt is continent of bowel and bladder, independent in room. Pt is stable, call light within reach; will call appropriately.
[2022-12-05 06:48] LABS: Procalcitonin* 0.16 ng/mL (<0.50)
--- NOTE | 2022-12-05 07:00 | CRLHL7_ITS ---
For Patients: As a result of the Century Cures Act, medical imaging exams and procedure reports are released immediately into your electronic medical record. You may view this report before your referring provider. If you have questions, please contact your health care provider. Indication: Pneumothorax. Technique: Chest 1 view. Comparison: 12/04/2022. Findings/Impression: Cardiovascular and mediastinum: Heart size and vasculature are normal in caliber and appearance. Lungs and pleural space: Small right apical pneumothorax has slightly decreased in size. Unchanged bilateral pleural effusions, right greater than left with right lower lobe atelectasis and/or infiltrate. No new abnormality. Bones and soft tissues: No acute findings. Dictated by Carlyle Duke MD @ 12/05/2022 7:10:28 AM (Electronically Signed)
[2022-12-05] MEDS: ENOXAPARIN 80 MG/0.8 ML INJ 70 MG SUBCUT (10:00)
[2022-12-05] MEDS: CALCIUM CARBONATE 500 MG TABLET PO (10:01)
[2022-12-05] MEDS: ESCITALOPRAM 10 MG TABLET 20 MG PO (10:01)
[2022-12-05] MEDS: FOLIC ACID 1 MG TABLET PO (10:01)
[2022-12-05] MEDS: SENNOSIDES/DOCUSATE TABLET 1 TAB PO (10:02)
[2022-12-05] MEDS: BUPRENORPHINE-NALOX 8-2MG FILM 2 EACH SUBLINGUAL (10:02)
[2022-12-05] MEDS: lamoTRIgine 100 MG TABLET 200 MG PO ×2 (10:05)
[2022-12-05] MEDS: ACETAMINOPHEN 325 MG TABLET 975 MG PO ×2 (10:05→15:30)
[2022-12-05] MEDS: SODIUM CHLORIDE 0.9 % (FLUSH) 10 ML SYRINGE 5 ML IVF (10:05)
[2022-12-05] MEDS: CARBOXYMETHYLCELLULOSE (REFRESH PLUS) TEARS 1 DROP EYE-BOTH (10:21)
--- NOTE | 2022-12-05 12:45 | RESP.RT ---
Patient on Home Oxygen 2 Lpm, Oxygen check on patient sitting on edge of bed on 2 Lpm Nasal Cannula, SaO2 92%, walked patient 240 feet on Nasal Cannula 2 Lpm, SaO2 91-92%, Heart rate 114-118/minute, patient stated was not dizzy of short of breath.
[2022-12-05] MEDS: BUPRENORPHINE-NALOX 8-2MG FILM 1 EACH SUBLINGUAL (14:50)
[2022-12-05] MEDS: cloNIDine HCL 0.1 MG TABLET PO (14:50)
[2022-12-05] MEDS: IPRAT-ALBUT 0.5-2.5 MG/3 ML NEB 1 NEB IH (17:25)
--- NOTE | 2022-12-05 18:18 | PC.NURSE ---
Discharge: Patient complains of headache- tylenol given- took the edge off. She remains on 2L O2 with saturations in low 90s%. IV discontinued with catheter intact. Discharge teaching given to patient and spouse and all questions answered. She leaves via wheelchair with all belongings.
--- NOTE | 2022-12-06 16:34 | P.DS_ITS ---
DS: Providers Provider Time Seen by Provider: 10:30 Date Seen: 12/05/22 Date of admission: 12/01/22 17:07 Primary care physician: Cindi Torres MD Admitting Clinician: Tk Reece MD Consults: 12/01/22 17:07 Consult to Respiratory Therapy [CONS] Routine Comment: Reason(s) for RT Consult:: Consult Attending Physician on discharge: Tk Reece MD Date of Discharge: 12/05/22 DS: Diagnosis Discharge Diagnosis (1) Acute respiratory failure with hypoxia: Status: Acute Problem details: - likely related to findings on admission CT (subpulmonic loculated L hydropneumothorax, atelectasis, small loculated R pleural effusion) - reviewed case with Dr. Edwards of general surgery, who attempted needle thoracentesis. Right red blood was obtained only. Procedure stop. Subsequently found to have developed a pneumothorax. - does not appear to have acute infectious process contributing, recently completed course of abx. Deferring abx on admit, low threshold to initiate pending clinical course - continue supplemental oxygen as needed, RT referral - does use oxygen at home. Will likely need to continue this when she returns home. (2) Chronic bullous emphysema: Status: Chronic Problem details: Continue with current efforts to support this. (3) Hydropneumothorax: Status: Acute Problem details: She will keep her appointment with her primary care physician for this coming 12/06/2022, Dr. Torres. She will keep appoint with her carbon capture power plant operator at [facility] next week as already planned. (4) History of pulmonary embolism: Status: Acute Problem details: - massive bilateral, 2005 - resume her enoxaparin anticoagulation right now. - will hold off on restarting her warfarin therapy at this time. 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 Will administer another 1 L of normal saline IV fluid bolus. (9) Anxiety: Status: Acute Problem details: - continue home meds - consider decreasing the dose of the clonidine which can cause her to have her hypotensive episodes as well. (10) Insomnia: Status: Acute Problem details: - on Trazodone as an outpatient, continue this during stay (11) History of narcotic use: Status: Acute Problem details: - on suboxone as outpatient, will continue this during stay (12) Normocytic anemia: Status: Acute Problem details: - recent epistaxis, outpatient Hgb 10.6 on 11/26/22 (13) Elevated troponin: Status: Acute Problem details: - no chest pain or acute changes to EKG, likely demand ischemia from above noted lung processes - follow troponin to peak, telemetry, TTE ordered with preliminary view demonstrating no regional wall motion abnormalities. (14) Supratherapeutic INR: Status: Acute Problem details: - Will give Vitamin K x1 in anticipation of thoracentesis tomorrow - hold coumadin, follow INR and Factor 10 Chromogenic (however, this is a send out lab) - known + lupus anticoagulant, h/o bilateral massive PEs - will bridge with 70mg of Lovenox BID (starting tomorrow night) (15) Lupus anticoagulant positive: Status: Chronic Problem details: - on Warfarin ordinarily. Will switch to enoxaparin as were trying to prepare the patient for possible diagnostic interventional efforts including needle thoracentesis if warranted. (16) Pleural effusion: Status: Acute (17) History of colitis: Status: Acute Problem details: Ulcerative colitis ~2010. Microscopic colitis ~2016. (18) Peripheral venous insufficiency: Status: Chronic DS: Summary Hospital Course Hospital Course: Shweta Teague is a 62 year old female who presented to the ED today for a 2 day history of R sided chest pain and hypoxia. She started noted pain in her R chest yesterday; no trauma. Pain worse with deep breathing and movement. No fevers, no significant cough, no sick contacts. She was recently hospitalized at [place] from 11/08-11/11 for Influenza and pneumonia, then transferred to [facility] from 11/11-11/16 after having severe epistaxis and concern for worsening respiratory failure. Shweta was discharged home on supplemental oxygen and a course of Cefpodoxime; has completed course of antibiotics and had been weaning off of supplemental oxygen successfully. This morning, in addition to her chest pain, Shweta also noted hypoxia at rest (88% on RA, had been 92-94% at rest earlier in the week).? The hypoxia and persistent R sided chest pain prompted her ED visit. ER Course and Findings: ?- troponin 0.06, no acute changes on EKG ?- CT scan revealed no PE, noted subpulmonic loculated left hydropneumothorax, left lower lobe atelectasis, small loculated right pleural effusion, multiple lung cysts (emphysema and TESFAYE in ddx) ?- hgb 11.2 (was 10.6 last week) ?- normal WBC, CRP 18 ?- 88% on RA, responded well to low dose supplemental oxygen ?- INR 3.56 (on Coumadin for antiphospholipid antibody and history of PE, details below) CT findings above are new. Patient had a CT in clinic last week after hospital d/c f/u that exhibited the following: Findings: Interval development fluid within the pre-existing cyst in the left lower lobe. This cyst measures 7.9 cm and is chronic. There is no associated wall thickening. Marked improved pulmonary parenchyma bilaterally compared to the manoj or study with mild residual parenchymal densities in the left lower lobe and right lower lobe. 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 Decreased intrathoracic adenopathy compared to the prior exam. No fracture. Incidental small left renal cysts noted. No hiatal hernia. There is a focal ovoid area of low attenuation within the right lower lobe medially measuring 2.7 cm may also represent fluid within a pre-existing cyst. Small right pleural effusion is present. There is no pneumothorax. ? Impression: Improved appearance of the bilateral inflammatory/infectious process when compared to the prior study with residual airspace densities in both lower lobes. Interval development of fluid within the large pre-existing lung cyst within the left lower lobe. This does not appear to represent an abscess. Small right pleural effusion is now present. There is also a 2.7 cm focal area of relative low density within the medial right lower lobe which likely represents fluid within additional pre-existing lung cyst. Decreased reactive mediastinal and bilateral hilar adenopathy. Recommend follow-up CT chest in 1 month to further assess these findings. Patient's past medical history updated in tabs below. She had bilateral massive PEs in 2005; was subsequently diagnosed with antiphospholipid antibody.? She is on warfarin, her factor 10 Chromogenic is followed rather than INR given unreliability with this particular hypercoagulable state.? After her severe epistaxis last month, she was treated with vitamin K, then bridged with BID Lovenox until last week. She sees Drs. Torres and Clemente at the [facility] locally. Efforts were made to transfer patient back to [facility]. They indicated they were not able to accept her in transfer because they had no bed availability. Patient was thus admitted to [facility]. Patient did better with oxygen support here in hospital. Required low-flow oxygen at 2-3 liters/minute via nasal cannula. Our initial goal was to try to obtain a sample of the pleural effusion to further make a diagnosis of underlying condition. In order to do so we held her warfarin, we reversed her warfarin anticoagulation with vitamin K so as to try to lower her risk for bleeding while attempting to do a needle thoracentesis. We did achieve the lower INR of 1.0 compared to when she 1st came in and was around 3.8. Needle thoracentesis was attempted. We obtain nothing but isabel blood. It was stopped promptly. Post needle thoracentesis effort x-ray demonstrated a new right-sided pneumothorax measuring about 2 cm at the apex. I am estimating roughly about 1/5 of the lung volume overall. We considered putting in a chest tube but clinically she was hemodynamically stable. We monitored her initially. She continued to be stable. Subsequently I put her on 100% oxygen high-flow at 20 liters/minute and continue to monitor hemodynamically as well as serial x- rays. The pneumothorax continue to decrease in size. She remained hemodynamically stable. Decision was made to not attempt to obtain any additional sample but continue with efforts to assess and treat her in the outpatient setting. As such she will follow up with her primary care physician Dr. Torres and with her carbon capture power plant operator at [facility]. Should she have concerns or problems in the meantime that warrant emergency department assessment we urged her to follow up at [facility]. Status at Discharge Overall status at discharge: patient is not back to baseline Time Spent with Patient Time attestation: Total time spent providing and/or coordinating discharge services: Time spent: Greater than 30 minutes Exam Narrative: Exam Narrative: Appears comfortable.? No acute distress.? More visibly concerned about her condition today, does break into spontaneous tearing at times when speaking with me. Alert, oriented to self, place, time, situation.? Articulate, cooperative, friendly.? Mood and affect are congruent.? Bibasilar rales unchanged from yesterday.? No wheezing or rhonchi. Heart tones with regular rhythm.? Abdomen with active bowel sounds.? No CVA tenderness.? Independent transfer, station, gait.? No focal motor neurologic deficits. Const: Documenting provider has reviewed patient's vital signs: yes DS: Data Data Completed and Pending Labs on day of discharge: Preliminary micro results at discharge 12/03/22 08:04 Body Fluid Culture - Preliminary Pleural Fluid NO GROWTH AFTER 48 HOURS Discharge Plan Discharge Disposition: Home, Self-Care Date of Admission: 12/01/22 17:07 Attending Provider on Discharge: Tk Reece Primary Care Provider: Cindi Torres Condition: Improved Anticipated Discharge Date/Time: 12/05/22 15:30 Discharge Medications: New enoxaparin [Lovenox] 80 mg/0.8 mL Syringe 70 mg subcut Q12H 10 Days Qty: 10 2RF Rx Instructions: Bridging anticoagulation therapy until more definitive lung treatment plan with lung doctor. Continued buprenorphine-naloxone 8-2 mg film 3 film sublingual DAILY Label Comments: 2 IN THE AM, 1 AT 1400 trazodone 100 mg tablet 100 mg PO HS multivitamin Tablet 1 tab PO DAILY lidocaine 5 % adhesive patch,medicated 1 patch topical DAILY PRN Label Comments: May use 1-2 patches QD PRN Rx Instructions: leave on most painful area for up to 12 hrs lamotrigine 200 mg tablet 200 mg PO DAILY glucosamine sulfate 1,000 mg tablet 1,000 mg PO DAILY Rx Instructions: administer with meals folic acid 1 mg tablet 1 mg PO DAILY escitalopram oxalate 20 mg tablet 20 mg PO DAILY calcium carbonate [Calcium 600] 600 mg calcium (1,500 mg) tablet 600 mg PO DAILY methocarbamol 500 mg tablet 500 - 1,000 mg PO Q8H PRN (Reason: pain) Label Comments: TAKE 1-2 TABLETS BY MOUTH EVERY 8 HOURS NEEDED FOR PAIN/SPASMS. clonidine HCl 0.1 mg tablet 0.1 mg PO Q8H PRN (Reason: anxiety) albuterol sulfate 90 mcg/actuation HFA aerosol inhaler 2 puff INHALATION Q4H PRN Label Comments: INHALE 2 PUFFS BY MOUTH EVERY 4 HOURS IF NEEDED FOR SHORTNESS OF BREATH 1ST CHOICE. fluticasone propion-salmeterol [Advair Diskus] 100-50 mcg/dose blister with device 1 inh INHALATION BID Discontinued warfarin 2.5 mg tablet 2.5 - 5 mg PO DAILY Label Comments: 5mg Sat,Sat,Sat and 2.5mg all other days Discharge Orders: Discharge Order (Routine); Ordered 12/05/22 Ordered By: Tk Reece Patient Education: Enoxaparin (By injection), Traumatic Pneumothorax (GEN) Additional Instructions: 1. Keep appointment with Dr. Torres as already set up for tomorrow, with pre-visit chest x-ray to assess on-going resolution of right pneumothorax. 2. Keep appointment with carbon capture power plant operator at [facility] next week. 3. Return to clinic or [facility] sooner if condition warrants. 4. Oxygen 2 LPM via NC continuously. 5. Re-institute/resume CPAP as prescribed when sleeping. Activity Level: No Restrictions and Activity as Tolerated Discharge Diet: Regular Follow Up Appointments: Cindi Torres MD [Primary Care Provider] - (Keep appointment as already set up for tomorrow, 06 December 2022, with pre-visit CXR PA and Lateral, to continue to monitor on-going resolution of right pneumothorax.) Forms: [employer] Info Instructions
== END 2022-12-05 18:15 | disposition home or self-care (01) | DRG 189 ==
LOC: ED 15:49 → MEDSURG 16:20
PROVIDERS: Surgery; Admitting Provider Internal Medicine; Emergency Provider Family Medicine; PCP Family Medicine; Visit Provider Family Medicine
DX: J96.01 Acute respiratory failure with hypoxia (principal); J93.9 Pneumothorax, unspecified; J90 Pleural effusion, not elsewhere classified; J94.8 Other specified pleural conditions; D68.62 Lupus anticoagulant syndrome; J94.2 Hemothorax; J98.11 Atelectasis; I24.8 Other forms of acute ischemic heart disease; J98.4 Other disorders of lung; F41.9 Anxiety disorder, unspecified; D64.9 Anemia, unspecified; F11.91 Opioid use, unspecified, in remission; G47.00 Insomnia, unspecified; Z86.711 Personal history of pulmonary embolism; J43.9 Emphysema, unspecified; E86.0 Dehydration; I95.1 Orthostatic hypotension; I87.2 Venous insufficiency (chronic) (peripheral); Z79.01 Long term (current) use of anticoagulants; I10 Essential (primary) hypertension; F31.9 Bipolar disorder, unspecified; F90.9 Attention-deficit hyperactivity disorder, unspecified type; Z87.891 Personal history of nicotine dependence
CPT/HCPCS: 32555; 36415; 71045; 71260; 80048; 80076; 82040; 82042; 82150; 82465; 82803; 82945; 83605; 83615; 83735; 83880; 83986; 84100; 84145; 84155; 84157; 84311; 84484; 85025; 85027; 85379; 85610; 86140; 87015; 87070; 87102; 87116; 87205; 87502; 87634; 87635; 88112; 88305; 89051; 93005; 93306; 94640; 94664; 94761; 99284; 99285; G0378; A9270; J0574; J1650; J3430; J7030; Q9967

== ENCOUNTER 2024-04-14 08:33 | Day surgery (SDC) | payer OTHER, SELFPAY ==
[2024-04-14] VITALS (14 sets, daily range): BP systolic 114–147; BP diastolic 71–89; PULSE 64–87; RESP 16; TEMP 36.1–36.4; O2SAT 90–99; BMI 25.7
--- OUTSIDE RECORDS SUMMARY | 2024-04-14 08:35 | XMS_ITS | Clinical Summary ---
Author Organization [facility] Address [address] [place] [address] Care Team Providers Care Relocation Manager Name Role Phone Elsewhere, Pcp Primary Care Provider Unavailabl e Source Comments Patient records contain information from all sites at [facility]. For routine questions regarding patient records, call [phone] during business hours, M-F 8:00 AM - 5:00 PM Central Time. Record requests for emergency care only can be directed to [phone] at any time.[facility] Allergies Active Allergy Reactions Criticality Noted Date Comments Buspirone Other (see comments) Low 04/17/2006 intolerant Celecoxib GI intolerance Low 10/16/2022 Gabapentin Other (see comments) Low 06/23/2010 intolerance Naproxen GI intolerance Low 04/17/2006 intolerant colitis Nortriptyline Other (see comments) Low 04/17/2006 intolerant Paroxetine Other (see comments) Low 04/17/2006 intolerant Penicillins GI intolerance 01/26/2022 Piroxicam Other (see comments) Low 02/01/2007 rash Prednisone Other (see comments) Low 04/17/2006 intolerant rash Medications Medication Sig Dispensed Refills Start Date End Date Status warfarin (COUMADIN) 5 mg tablet Take 5 mg by mouth once. Take on Mondays, Wednesdays, Fridays03/13/2023 Active warfarin (COUMADIN) 7.5 mg tablet Take 2.5 mg by mouth once. Take Saturdays, Saturday, Saturday, 01/04/2015 Active estradioL (ESTRACE) 0.1 mg/g (0.01%) vaginal cream Insert 1 g into the vagina 2 (two) times a week. 12/07/2022 Active calcium carbonate 1,500 mg (600 mg calcium) tablet Take 600 mg by mouth daily. 01/14/2015 Active lamoTRIgine (LaMICtaL) 200 mg tablet Take 200 mg by mouth daily. 01/03/2015 Active escitalopram (LEXAPRO) 20 mg tablet Take 20 mg by mouth daily. 10/22/2022 Active albuterol 90 mcg/actuation inhaler Inhale 2 puffs as needed for shortness of breath. 01/14/2015 Active ipratropium (ATROVENT) 42 mcg (0.06 %) nasal spray Administer 2 sprays into nostril(s) as needed. 09/28/2021 Active buprenorphine-naloxo ne (SUBOXONE) 8-2 mg [address] SL film Place 3 Film under the tongue daily. 12/08/2014 Active cloNIDine (CATAPRES) 0.1 mg tablet Take 0.1 mg by mouth 3 (three) times a day as needed. 04/07/2020 Active methocarbamoL (ROBAXIN) 500 mg tablet Take 500 mg by mouth 3 (three) times a day. 02/14/2020 Active fexofenadine (CLIFFORD) 180 mg tablet Take 180 mg by mouth daily. 10/06/2019 Active miscellaneous medical supply misc In the winter. 04/12/2016 A ctive miscellaneous medical supply misc BIPAP machine for home use at pressure: autoadapt EEP 4, PS 3-15, back up rate auto 10/28/2017 Active lidocaine (LIDODERM) 5 % Place 1 patch on the skin as needed. 04/12/2016 Active miscellaneous medical supply misc as needed. 07/15/2014 Activ e UNABLE TO FIND Med Name: Blood Pressure Test kit Active glucosamine sulfate 1,000 mg tablet Take 1,000 mg by mouth daily. 10/16/2022 Active multivitamin capsule Take 1 tablet by mouth daily. 10/16/2022 Active fluticasone propion-salmeteroL 250-50 mcg/dose diskus inhaler Inhale 1 puff 2 (two) times a day. 12/10/2023 Active folic acid 1 mg tablet Take by mouth. 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 Ejxi-Jgmc-Kouo Syndrome (HCC) (Primary Dx); Other Pneumothorax; Cyst Renal; Lesion Adrenal Gland (HCC); Acquired Cystic Lung 02/13/2024 4:13 PM CDT - 02/13/2024 11:59 PM CDT Hospital Encounter Department of Radiology, [facility], in [place], [place] [address] [place] [address] Mike Sharp M.D. Jmhc-Xukt-Pqsr Syndrome (HCC) Discharge Disposition: Home or Self Care from Last 3 Months Family History Medical History Relation Name Comments Endocrine tumor Father Prostate cancer Father Premature Mother's Sister congenital heart issue Mother's Sister Spina bifida Niece 1 Throat cancer Paternal Grandmother nonsmo ker Relation Name Status Comments Brother 1 Alive A/W Brother 2 (Age 32) d. acciden t Daughter Alive IVF GT Father Alive Grandchild 1 Alive n3 Grandchild 2 Alive n2 Grandchild 3 Fetus - Spontaneous unable to carry to term Maternal Cousin 1 Alive A/W Maternal Cousin 2 Alive A/W Maternal Grandfather d. live r cirrhosis Maternal Grandmother (Age 82) d. stroke Mother (Age 83) d. stroke Mother's Sister (Age 40) d. hear t issuse Niece 1 Alive Niece 2 Alive n2 Niece/Nephew Alive n2 Paternal Grandfather (Age 60s) d . cirrhosis/colitis Paternal Grandmother (Age 80s) d . Cancer Sister Alive bleed agains sp ine, 50 Son Alive Social History Tobacco Use Types Packs/Day Years Used Date Smoking Tobacco: Never Smokeless Tobacco: Current Tobacco Cessation:Ready to Q uit: Not Asked; Counseling Given: Not Answered [facility] Utilities Answer Date Recorded In the past 12 months has th e electric, gas, oil, or water company threatened to shut off services in your home? No 02/16/2024 PHQ-2 Answer Date Recorded PHQ-2 Score 0 12/19/2023 Exercise Vital Sign Answer Date Recorde d On average, how many days pe r week do you engage in moderate to strenuous exercise (like a brisk walk)? 4 days 02/16/2024 On average, how many minutes do you engage in exercise at this level? 40 min 02/16/2024 Hunger Vital Sign Answer Date Recorded Within the past 12 months, y ou worried that your food would run out before you got the money to buy more. Never true 02/16/20 24 Within the past 12 months, t he food you bought just didn't last and you didn't have money to get more. Never true 02/16/2024 PRAPARE - Transportation Answer Date Re corded In the past 12 months, has l ack of transportation kept you from medical appointments or from getting medications? No 01/18 In the past 12 months, has l ack of transportation kept you from meetings, work, or from getting things needed for daily living? No 02/16/2024 Nutrition Answer Date Recorded Nutrition: EVOO Fat Source Unknown 02/15 On average, how many serving s of fruits and vegetables do you eat per day (serving size is equal to 1 cup or approximately the size of a tennis ball)? 0-2 02/16/2024 Dental Answer Date Recorded Dental: Regular Dentist Yes 02/16/20 Employment Answer Date Recorded Employment status Retired 02/16/2024 Housing Stability Answer Date Recorded What is your living situation today? I have a [facility] place to live 02/16/2024 Sex and Gender Information Value Date Recorded Sex Assigned at Female 02/19/2024 7:56 PM CDT Gender Identity Female 02/19/2024 7:56 PM CDT Sexual Orientation Straight 02/19/2024 7: 56 PM CDT Last Filed Vital Signs Vital Sign Reading Time Taken Comments Blood Pressure 132/82 12/19/2023 11:23 AM CONFERENCE CONCIERGE Pulse 87 12/19/2023 11:23 AM CONFERENCE CONCIERGE Temperature 36.3 ??C (97.3 ??F) 12/19/2023 1 1:23 AM CONFERENCE CONCIERGE Respiratory Rate 12 12/19/2023 11:2 3 AM CONFERENCE CONCIERGE Oxygen Saturation 97% 12/19/2023 11: 23 AM CONFERENCE CONCIERGE Inhaled Oxygen Concentration - - Weight 69.3 kg (152 lb 12.5 oz) 024 11:23 AM CONFERENCE CONCIERGE Height 162.6 cm (5' 4) 02/13/2024 4:58 PM CDT Body Mass Index 26.6 05/27/2023 7:56 AM CDT Plan of Treatment Health Maintenance Due Date Last Done Comments CT Colonography 1959 Cervical Cancer Screening 1959 Cologuard 1959 FIT 1959 HIV Screening 1960 Hepatitis C Screening 1959 Tobacco Cessation counseling 1959 COVID-19 Vaccine (2022-12 4 season) 2023 08/08/2022, 03/15/2022, 10/19/2021, Additional history exists Colonoscopy 10/07/2024 10/07/2014 Colorectal Cancer Screening 10/07/2024 Mammogram 12/10/2024 12/10/2023, 11/19, 10/23/2022, Additional history exists DTaP,Tdap,and Td Vaccines (2 - Td or Tdap) 01/10/2025 01/10/2015 Fasting Glucose for Diabetes Screening 12/10/2026 12/10/2023, 09/13/2023, 05/27/2023, Additional history exists Lipid (Cholesterol) Screening 12/10/2028, 06/10/2023, 11/01/2022, Additional history exists Zoster Vaccines Completed 11/22/2020, 04/0 02/2019, 08/11/2018 Influenza Vaccine Completed 08/12/2023, , 07/03/2021, Additional history exists Pneumococcal vaccine (0-64 years) Completed 09/13/2023, 07/23/2019, 08/25/2013 Depression Screening (Annual PHQ-2) Completed 12/19/2023, 12/19/2023 Medical Devices Implanted Type Area Mobility Developer Device Identifier Shelf Expiration Date Model / Serial / Lot Hardware E.G. Pins/Screws/R ods Hardware e.g. pins/screws/ rods Left: Femur Hardware E.G. Pins/Screws/R ods Hardware e.g. pins/screws/ rods Left: Knee Procedures Procedure Name Priority Date/Time Associated Diagnosis Comments MR ABDOMEN WITHOUT AND WITH IV CONTRAST RAD - Routine (most inpatients and all outpatients) 02/13/2024 5:37 PM CDT Zdot-Tryx-Cjii Syndrome (HCC) EXTI BASIC METABOLIC PANEL, S/P Routine 12/10/2023 12:42 PM CONFERENCE CONCIERGE EXTI LIPID PANEL W REFLEX MEASURED LDL Routine 12/10/2023 12:42 PM CONFERENCE CONCIERGE BI BREAST SCREENING BILATERAL WITH TOMOSYNTHESIS RAD - Routine (most inpatients and all outpatients) 12/10/2023 10:38 AM CONFERENCE CONCIERGE from Last 3 Months or Most Recently Relevant to Health Maintenance Results * MR Abdomen without and with IV Contrast (02/13/2024 5:37 PM CDT) Anatomical Region Laterality Modality Abdomen, Abdominal RST LOS, Abdominal ARZ LOS, Abdominal FLA LOS N/A Magnetic Resonance Impressions 02/14/2024 1:33 PM CDT 1. No worrisome renal masses. 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 2. Dilated bile duct and pancreatic duct extending to the ampulla. This can be correlated with LFTs for any obstructive signs or symptoms. No obstructing process is identified. 3. Tiny indeterminate enhancing nodule in the right adrenal. This can be correlated with biochemical testing to exclude a pheochromocytoma and serial follow-up to assess stability. Narrative 02/14/2024 1:33 PM CDT EXAM: ??MR ABDOMEN WITHOUT AND WITH IV CONTRAST COMPARISON: ??None FINDINGS: ?? Tiny 8mm indeterminate hyperenhancing nodule in the right adrenal. Bilateral renal cysts. Small 7 mm angiomyolipoma in the left kidney. Small hemorrhagic or proteinaceous cyst in the right kidney. No worrisome renal masses. Dilatation of the bile duct and pancreatic duct extending to the ampulla. The bile duct measures 13 mm. The pancreatic duct measures 6 mm. No definite obstructing lesion is identified. Gallbladder is distended. No pericholecystic fluid or inflammation. Small cyst or dilated side branch in the uncinate process of pancreas. Degenerative changes in the spine with spinal curvature. Procedure Note Mj An M.D. - 02/14/2024 EXAM: MR ABDOMEN WITHOUT AND WITH IV CONTRAST COMPARISON: None FINDINGS: Tiny 8mm indeterminate hyperenhancing nodule in the right adrenal. Bilateral renal cysts. Small 7 mm angiomyolipoma in the left kidney. Smallhemorrhagic or proteinaceous cyst in the right kidney. No worrisome renalmasses. Dilatation of the bile duct and pancreatic duct extending to the ampulla.The bile duct measures 13 mm. The pancreatic duct measures 6 mm. Nodefinite obstructing lesion is identified. Gallbladder is distended. Nopericholecystic fluid or inflammation. Small cyst or dilated side branch in the uncinate process of pancreas. Degenerative changes in the spine with spinal curvature. IMPRESSION: 1. No worrisome renal masses. Small angiomyolipoma in the left kidney andhemorrhagic cyst in the right kidney. 2. Dilated bile duct and pancreatic duct extending to the ampulla. Thiscan be correlated with LFTs for any obstructive signs or symptoms. Noobstructing process is identified. 3. Tiny indeterminate enhancing nodule in the right adrenal. This can becorrelated with biochemical testing to exclude a pheochromocytoma andserial follow-up to assess stability. Mike Sharp M.D. IMNayely MRI PROCEDURES from Last 3 Months or Most Recently Relevant to Health Maintenance Care Teams Relocation Manager Relationship Specialty Start Date End Date Elsewhere, Pcp PCP - General Internal Medicine 12/19/23
--- OUTSIDE RECORDS SUMMARY | 2024-04-14 08:35 | XMS_ITS | Continuity of Care Document ---
Author Organization [facility] Address [address] [place] [address] Phone Care Team Providers Care Sample Sewer Name Role Phone Unavailable Unavailable Unavailable Medications Medication Instructions Dosage Effective Dates (start - stop) Status Comments ATENOLOL (unknown strength) Not Available - Active CEPHALEXIN (unknown strength) Not Available - Active FLEXERIL (unknown strength) Not Available - Active LAMOTRIGINE (unknown strength) Not Available - Active LEXAPRO (unknown strength) Not Available - Active COUMADIN (unknown strength) Not Available - Active TYLENOL (unknown strength) Not Available - Active Procedures Procedure Date Office/Outpatient Visit,Est, Mod 2011 Advance Directives Directive Yes / No Effective Date File Name No Information Encounters Encounter Description Practice Location Reason(s) For Visit Diagnoses Date Provider Providers Copied on Encounter [facility], [address] [place] [address], [address], tel:[phone] [facility] No Information 3 No Information Office/Outpat ient Visit,Est, Mod [facility] [place], [address], [address], tel:[phone] [facility] CERVICALGIA 3 2 Mehbod Amir. [facility] [place], [address], [id number], [place]. tel:[phone] Family History Family Member Type Diagnosis Age At Onset No Information Payers Payer name Insurance type Covered libertarian ID Authorkristina roverto(s) [facility] [id number] Social History Type Description Quantity Date Captured Comments Sex Female Smoking Status No Information Chief Complaint And Reason For Visit No Information Reason For Referral Reason For Referral No Information History Of Present Illness Encounter Date Complaint History Of Prese nt Illness No Information Functional Status Date Functional Assessmen t No Information Instructions Date Instruction Additional Infor mation No Information Assessments Type Assessment Date No Information Patient Care Teams Name Effective Dates (start - stop) Status Members No Information
--- OUTSIDE RECORDS SUMMARY | 2024-04-14 08:35 | XMS_ITS | Referral Summary ---
Author Organization [facility] Address [address] [place] [address] Care Team Providers Care Museum Docent Name Role Phone Elsewhere, Pcp Primary Care Provider Unavailabl e Source Comments Patient records contain information from all sites at [facility]. For routine questions regarding patient records, call [phone] during business hours, M-F 8:00 AM - 5:00 PM Central Time. Record requests for emergency care only can be directed to [phone] at any time.[facility] Encounters Date Type Department Care Team Description 02/20/2024 1:00 PM CDT Telemedicine Department of Medical Genetics in [place], [place] [address] [place] [address] Mike Sharp M.D. Amro-Kvbt-Yhyj Syndrome (HCC) (Primary Dx); Other Pneumothorax; Cyst Renal; Lesion Adrenal Gland (HCC); Acquired Cystic Lung 02/13/2024 4:13 PM CDT - 02/13/2024 11:59 PM CDT Hospital Encounter Department of Radiology, [facility], in [place], [place] [address] [place] [address] Mike Sharp M.D. Ypoh-Ompb-Jsyp Syndrome (HCC) Discharge Disposition: Home or Self Care from Last 3 Months Allergies Active Allergy Reactions Criticality Noted Date [...] mouth daily. 10/06/2019 Active miscellaneous medical supply [facility] In the winter. 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 I have a [facility] place to live 02/16/2024 Sex and Gender Information Value Date Recorded Sex Assigned at Female 02/19/2024 7:56 PM CDT Gender Identity Female 02/19/2024 7:56 PM CDT Sexual Orientation Straight 02/19/2024 7: 56 PM CDT Last Filed Vital Signs Vital Sign Reading Time Taken Comments Blood Pressure 132/82 12/19/2023 11:23 AM NIPPING MACHINE OPERATOR Pulse 87 12/19/2023 11:23 AM NIPPING MACHINE OPERATOR Temperature 36.3 ??C (97.3 ??F) 12/19/2023 1 1:23 AM NIPPING MACHINE OPERATOR Respiratory Rate 12 12/19/2023 11:2 3 AM NIPPING MACHINE OPERATOR Oxygen Saturation 97% 12/19/2023 11: 23 AM NIPPING MACHINE OPERATOR Inhaled Oxygen Concentration - - Weight 69.3 kg (152 lb 12.5 oz) 024 11:23 AM NIPPING MACHINE OPERATOR Height 162.6 cm (5' 4) 02/13/2024 4:58 PM CDT Body Mass Index 26.6 05/27/2023 7:56 AM CDT Plan of Treatment Not on file Medical Devices Implanted Type Area Assistant Sales Director Device Identifier Shelf Expiration Date Model / Serial / Lot Hardware E.G. Pins/Screws/R ods Hardware e.g. pins/screws/ rods Left: Femur Hardware E.G. Pins/Screws/R ods Hardware e.g. pins/screws/ rods Left: Knee Procedures Procedure Name Priority Date/Time Associated Diagnosis Comments MR ABDOMEN WITHOUT AND WITH IV CONTRAST RAD - Routine (most inpatients and all outpatients) 02/13/2024 5:37 PM CDT Bkfe-Libz-Jajc Syndrome (HCC) EXTI BASIC METABOLIC PANEL, S/P Routine 12/10/2023 12:42 PM NIPPING MACHINE OPERATOR EXTI LIPID PANEL W REFLEX MEASURED LDL Routine 12/10/2023 12:42 PM NIPPING MACHINE OPERATOR BI BREAST SCREENING BILATERAL WITH TOMOSYNTHESIS RAD - Routine (most inpatients and all outpatients) 12/10/2023 10:38 AM NIPPING MACHINE OPERATOR from Last 3 Months or Most Recently [...] follow-up to assess stability. Mike Sharp M.D. IMG MRI PROCEDURES from Last 3 Months or Most Recently Relevant to Health Maintenance Care Teams Museum Docent Relationship Specialty Start Date End Date Elsewhere, Pcp PCP - General Internal Medicine 12/19/23
--- OUTSIDE RECORDS SUMMARY | 2024-04-14 08:35 | XMS_ITS ---
Author Organization [facility] Address [address] [place] [address] Care Team Providers Care Clamshell Engineer Name Role Phone Unavailable Unavailable Unavailable Surgery Details Not on file Complications Check Surgery Details section. Procedure Estimated Blood Loss Check Surgery Details section. Procedure Findings Check Surgery Details section. Procedure Specimens Taken Check Surgery Details section.
--- OUTSIDE RECORDS SUMMARY | 2024-04-14 08:35 | XMS_ITS | Encounter Summary ---
Author Organization [facility] Address [address] [place] [address] Care Team Providers Care Medical Lab Scientist Name Role Phone Elsewhere, Pcp Primary Care Provider Unavailabl e Reason for Referral * MRI/CAT/PET Scan (Routine) - Pending Review Specialty Diagnoses / Procedures Referred By Neil t Referred To Contact Radiology Diagnoses Kpkb-Lquo-Hgas Syndrome (HCC) Other Pneumothorax Cyst Renal Lesion Adrenal Gland (HCC) Acquired Cystic Lung Procedures MR Abdomen without and with IV Contrast Mike Sharp M.D. [address] [place] [address] [facility] Referral ID Status Reason Start Date Expiration Date V isits Requested Visits Authorized [id number] Pending Review 02/20/2024 02/19/2025 1 1 * Outpatient (Routine) - Authorized Specialty Diagnoses / Procedures [facility] Referred To Contact Mike Frias M.D. [address] [place] [address] [facility] Referral ID Status Reason Start Date Expiration Date V isits Requested Visits Authorized [id number] Authorized 02/20/2024 08/21/2025 1 1 Reason for Visit * Outpatient (Routine) - Closed Specialty Diagnoses / Procedures Referred By Contac t Referred To Contact [facility] Diagnoses Rekk-Ikxp-Ecao Syndrome (HCC) Phillip Gomez M.D. [address] [place] [address] [facility] Referral ID Status Reason Start Date Expiration Date Visits Re quested Visits Authorized [id number] Closed 05/27/2023 11/17/2023 1 1 Encounter Details Date Type Department Care Team (Late st Contact Info) Description 02/20/2024 1:00 PM CDT Telemedicine Department of Medical Genetics in [place], [place] [address] [place] [phone] Mike Sharp M.D. [address] [place] [address] Aytv-Rfch-Gyzr Syndrome (HCC) (Primary Dx); Other Pneumothorax; Cyst Renal; Lesion Adrenal Gland (HCC); Acquired Cystic Lung Social History Tobacco Use Types Packs/Day Years Used Date Smoking Tobacco: Never Smokeless Tobacco: Current [facility] Utilities Answer Date Recorded In the past 12 months has e electric, gas, oil, or water company [...] your living situation today? I have a [facility] place to live 02/16/2024 Sex and Gender Information Value Date Recorded Sex Assigned at Female 02/19/2024 7:56 PM CDT Gender Identity Female 02/19/2024 7:56 PM CDT Sexual Orientation Straight 02/19/2024 7: 56 PM CDT documented as of this encounter Consult Notes * Mike Sharp M.D. - 02/20/2024 1:00 PM CDT Images from the original note were not included. REFERRAL Phillip Gomez M.D. [address] [place] [address] CHIEF COMPLAINT / REASON FOR CONSULT Dvwp-Soyp-Wzyb disease/FLCN mutation+ HISTORY OF PRESENT ILLNESS This consultation was performed as video visit. Consult conducted via real-time audio/video technology by Mike Sharp M.D. in [facility] to the patient in Patient's Home Shweta Teague is a pleasant 63 y.o. female from [facility] who was referred to [facility] for genetic condition evaluation. Patient was accompanied by her . Patient has history of spontaneous pneumothorax, lung bullae and blebs were noted on chest CT in 2011. She presented to pulmonology for further evaluation on 05/27/2023. They have noted multiple lungcysts dating back to at least 2005. 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 Patient had been updated on the results, did not have genetic counseling, did not see the report. She denies any unusual skin findings. She had 2 normal colonoscopies. Family history is negative for known Fcla-Ewdk-Lpgr syndrome manifestations. The following portions of the patient's history were reviewed and updated as appropriate: allergies, current medications, family history, medical history, social history, surgical history and problemlist. CURRENT MEDICATIONS Current Outpatient Medications: albuterol 90 mcg/actuation inhaler, Inhale 2 puffs as needed for shortness of breath., Disp: , Rfl: azithromycin (ZITHROMAX) 250 mg tablet, Take 500 mg today and then 250 mg days 2-5, Disp: , Rfl: buprenorphine-naloxone (SUBOXONE) 8-2 mg per SL film, Place 3 Film under the tongue daily., Disp: ,Rfl: calcium carbonate 1,500 mg (600 mg calcium) tablet, Take 600 mg by mouth daily., Disp: , Rfl: cloNIDine (CATAPRES) 0.1 mg tablet, Take 0.1 mg by mouth 3 (three) times a day as needed., Disp: , Rfl: escitalopram (LEXAPRO) 20 mg tablet, Take 20 mg by mouth daily., Disp: , Rfl: estradioL (ESTRACE) 0.1 mg/g (0.01%) vaginal cream, Insert 1 g into the vagina 2 (two) times a week., Disp: , Rfl: fexofenadine (CLIFFORD) 180 mg tablet, Take 180 mg by mouth daily., Disp: , Rfl: fluticasone propion-salmeteroL 250-50 mcg/dose diskus inhaler, Inhale 1 puff 2 (two) times a day., Disp: , Rfl: folic acid 1 mg tablet, Take by mouth., Disp: , Rfl: glucosamine sulfate 1,000 mg tablet, Take 1,000 mg by mouth daily., Disp: , Rfl: ipratropium (ATROVENT) 42 mcg (0.06 %) nasal spray, Administer 2 sprays into nostril(s) as needed.,Disp: , Rfl: lamoTRIgine (LaMICtaL) 200 mg tablet, Take 200 mg by mouth daily., Disp: , Rfl: lidocaine (LIDODERM) 5 %, Place 1 patch on the skin as needed., Disp: , Rfl: methocarbamoL (ROBAXIN) 500 mg tablet, Take 500 mg by mouth 3 (three) times a day., Disp: , Rfl: miscellaneous medical supply [facility] In [place]., Disp: , Rfl: miscellaneous medical supply misc, BIPAP machine for home use at pressure: autoadapt EEP 4, PS 3-15, back up rate auto, Disp: , Rfl: miscellaneous medical supply misc, as needed., Disp: , Rfl: multivitamin capsule, Take 1 tablet by mouth daily., Disp: , Rfl: UNABLE TO FIND, Med Name: Blood Pressure Test kit, Disp: , Rfl: warfarin (COUMADIN) 5 mg tablet, Take 5 mg by mouth once. Take on Mondays, Wednesdays, Fridays, Disp: , Rfl: warfarin (COUMADIN) 7.5 mg tablet, Take 2.5 mg by mouth once. Take Saturdays, Saturday, Saturday, , Disp: , Rfl: FAMILY HISTORY Pedigree reviewed, scanned and available for viewing in EMR. REVIEW OF SYSTEMS Pertinent positives and negatives included in the history of present illness. All other systems reviewed and are negative. 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) Embolus Pulmonary Personal History Bilateral Emphysema NOS Hypertension Essential Primary Insomnia Insufficiency Venous Peripheral Pain Low Back Unspecified Pneumothorax Spontaneous Primary PAST SURGICAL HISTORY Past Surgical History: Procedure Laterality Date ENDOMETRIAL ABLATION SOCIAL HISTORY Social History Socioeconomic History Marital status: Spouse name: Not on file Number of children: Not on file Years of education: Not on file Highest education level: Not on file Occupational History Not on file Tobacco Use Smoking status: Never Smokeless tobacco: Current Vaping Use Vaping Use: never used Substance and Sexual Activity Alcohol use: Not on file Drug use: Not on file Sexual activity: Not on file Other Topics Concern Not on file Social History Narrative Not on file Social Determinants of Health Food Insecurity: No Food Insecurity (02/16/2024) Hunger Vital Sign Worried About Running Out of Food in the Last Year: Never true Ran Out of Food in the Last Year: Never true Transportation Needs: No Transportation Needs (02/16/2024) PRAPARE - Transportation Lack of Transportation (Medical): No Lack of Transportation (Non-Medical): No Physical Activity: Sufficiently Active (02/16/2024) Exercise Vital Sign Days of Exercise per Week: 4 days Minutes of Exercise per Session: 40 min Intimate Partner Violence: Not on file Housing Stability: Low Risk (02/16/2024) Housing Stability Housing: Living Situation: I have a steady place to live There were no vitals filed for this visit. PHYSICAL EXAM General: Well appearing Labs Previous genetic testing, reported 08/09/2023: Imaging/Procedures Outside CT chest, 06/18/2012: 1) Pulmonary emphysema. 2) Old marked compression deformity of T10 with considerable loss of anterior vertebral body height. Scattered bulla and blebs consistent with pulmonary emphysema. Interpretation of Outside CT chest, 06/25/2023: 1. Unchanged cystic lung disease, larger in lower lobes. Differential diagnosis includes Mikki-Elise Pal syndrome and TESFAYE, among others. 2. Interval resolution of right pleural effusion. No pneumothorax. MRI abdomen, 02/13/2024: 1. No worrisome renal masses. 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 2. Dilated bile duct and pancreatic duct extending to the ampulla. This can be correlated with LFTsfor any obstructive signs or symptoms. No obstructing process is identified. 3. Tiny indeterminate enhancing nodule in the right adrenal. This can be correlated with biochemical testing to exclude a pheochromocytoma and serial follow-up to assess stability. 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 Reviewed results of previous genetic testing which identified likely pathogenic variant in FLCN gene. 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 Reviewed BHDS including manifestations and surveillance, autosomal dominant inheritance, resources (provided via portal: https://www.ncbi.nlm.nih.gov/books/RQQ8461/; https://medlineplus.gov/genetics/condition/isht-xexz-pwiv-syndrome/; https://www.thedfoundation.org/). Discussed BHDS, including autosomal dominant inheritance, characteristic findings, screening, agents/circumstances to avoid (such as smoking, high ambient pressures). Currently there is no consensus on screening, some experts (https://www.ncbi.nlm.nih.gov/books/YCJ9032/) suggested what seems to be quite an extreme surveillance (such as annual dermatological screening for possible risk of melanoma, annual thyroid ultrasound for possible risk of thyroid neoplasia, colonoscopy for possible risk ofcolon cancer) which have not been generally accepted, but may evolve over time. There is a consensus on screening for renal neoplasia and baseline screening for pulmonary cysts. Management typically involves treatment of manifestations. Plan: Follow-up in 2 years with MRI abdomen Family letter (send after the the visit) Discussed in detail with the patient/family impression and plan and answered their questions. Patient/family expressed understanding of the content. Educational materials were provided as appropriate. Orders Placed This Encounter Procedures MR Abdomen without and with IV Contrast Metanephrines, Fractionated, Free [facility] office visit (clinic) documented in this encounter Plan of Treatment Scheduled Orders Name Type Priority Associated Diagnoses Orde r Schedule Metanephrines, Fractionated, Free Lab Routine Xmhb-Pjnn-Mtnt Syndrome (HCC) Other Pneumothorax Cyst Renal Lesion Adrenal Gland (HCC) Acquired Cystic Lung Expected: 02/20/2024, Expires: 05/21/2025 MR Abdomen without and with IV Contrast Imaging RAD - Routine (most inpatients and all outpatients) Kpvg-Tynn-Zkga Syndrome (HCC) Other Pneumothorax Cyst Renal Lesion Adrenal Gland (HCC) Acquired Cystic Lung Expected: 02/18/2026, Expires: 03/17/2027 Scheduled Referrals Name Type Priority Associated Diagnoses Orde r Schedule [facility] office visit (clinic) Outpatient Referral Routine Expected: 02/18/2026, Expires: 11/17/2026 documented as of this encounter Visit Diagnoses Diagnosis Idyr-Qcil-Tfbx Syndrome (HCC)- Primary Other Pneumothorax Cyst Renal Lesion Adrenal Gland (HCC) Acquired Cystic Lung documented in this encounter Care Teams Medical Lab Scientist Relationship Specialty Start Date End Date Elsewhere, Pcp PCP - General Internal Medicine 12/19/23 documented as of this encounter
--- OUTSIDE RECORDS SUMMARY | 2024-04-14 08:35 | XMS_ITS | Encounter Summary ---
Author Organization [facility] Address [address] [place] [address] Care Team Providers Care Chief Petroleum Engineer Name Role Phone Elsewhere, Pcp Primary Care Provider Unavailabl e Reason for Referral * MRI/CAT/PET Scan (Routine) - Closed Specialty Diagnoses / Procedures Referred By Neil bauer Referred To Contact Radiology Diagnoses Tfuv-Sugg-Uznq Syndrome (HCC) Procedures MR Abdomen without and with IV Contrast Mike Sharp M.D. [address] [place] [address] [facility] Referral ID Status Reason Start Date Expiration Date Visits Re quested Visits Authorized [id number] Closed 10/09/2023 10/08/2024 1 1 Reason for Visit * MRI/CAT/PET Scan (Routine) - Closed Specialty Diagnoses / Procedures Referred By Neil baure Referred To Contact Radiology Diagnoses Bikn-Teom-Pmkl Syndrome (HCC) Procedures MR Abdomen without and with IV Contrast Mike Sharp M.D. [address] [place] [address] [facility] Referral ID Status Reason Start Date Expiration Date Visits Re quested Visits Authorized [id number] Closed 10/09/2023 10/08/2024 1 1 Encounter Details Date Type Department Care Team (Latest Contact Info) Description 02/13/2024 4:13 PM CDT - 02/13/2024 11:59 PM CDT Hospital Encounter Department of Radiology, [facility], in [place], [place] [address] [place] [address] Mike Sharp M.D. [address] [place] [address] Blfk-Szju-Pfza Syndrome (HCC) Discharge Disposition: Home or Self Care Social History Tobacco Use Types Packs/Day Years Used Date Smoking Tobacco: Never Smokeless Tobacco: Current PHQ-2 Answer Date Recorded PHQ-2 Score 0 12/19/2023 Nutrition Answer Date Recorded Nutrition: EVOO Fat Source Unknown 01/30 Nutrition: Servings of Fruits/Vegetables per Day Not on file 01/30/2021 Dental Answer Date Recorded Dental: Regular Dentist Unknown 01/31/20 Sex and Gender Information Value Date Recorded Sex Assigned at Female 02/19/2024 7:56 PM CDT Gender Identity Female 02/19/2024 7:56 PM CDT Sexual Orientation Straight 02/19/2024 7: 56 PM CDT documented as of this encounter Last Filed Vital Signs Vital Sign Reading Time Taken Comments Blood Pressure - - Pulse - - Temperature - - Respiratory Rate - - Oxygen Saturation - - Inhaled Oxygen Concentration - - Weight - - Height 162.6 cm (5' 4) 02/13/2024 4:58 PM CDT Body Mass Index - - documented in this encounter Medications at Time of Discharge Medication Sig Dispensed Refills Start Date End Date albuterol 90 mcg/actuation inhaler Inhale 2 puffs as needed for shortness of breath. 01/14/2015 azithromycin (ZITHROMAX) 250 mg tablet Take 500 mg today and then 250 mg days 2-5 12/10/2023 buprenorphine-naloxone (SUBOXONE) 8-2 mg per SL film Place 3 Film under the tongue daily. 12/08/2014 calcium carbonate 1,500 mg (600 mg calcium) tablet Take 600 mg by mouth daily. 01/14/2015 cloNIDine (CATAPRES) 0.1 mg tablet Take 0.1 mg by mouth 3 (three) times a day as needed. 04/07/2020 escitalopram (LEXAPRO) 20 mg tablet Take 20 mg by mouth daily. 10/22/2022 estradioL (ESTRACE) 0.1 mg/g (0.01%) vaginal cream Insert 1 g into the vagina 2 (two) times a week. 12/07/2022 fexofenadine (CLIFFORD) 180 mg tablet Take 180 mg by mouth daily. 10/06/2019 fluticasone propion-salmeteroL 250-50 mcg/dose diskus inhaler Inhale 1 puff 2 (two) times a day. 12/10/2023 folic acid 1 mg tablet Take by mouth. 08/02/2008 glucosamine sulfate 1,000 mg tablet Take 1,000 mg by mouth daily. 10/16/2022 ipratropium (ATROVENT) 42 mcg (0.06 %) nasal spray Administer 2 sprays into nostril(s) as needed. 09/28/2021 lamoTRIgine (LaMICtaL) 200 mg tablet Take 200 mg by mouth daily. 01/03/2015 lidocaine (LIDODERM) 5 % Place 1 patch on the skin as needed. 04/12/2016 methocarbamoL (ROBAXIN) 500 mg tablet Take 500 mg by mouth 3 (three) times a day. 02/14/2020 miscellaneous medical supply misc In the winter. 04/12/2016 miscellaneous medical supply misc BIPAP machine for home use at pressure: autoadapt EEP 4, PS 3-15, back up rate auto 10/28/2017 miscellaneous medical supply misc as needed. 07/15/2014 multivitamin capsule Take 1 tablet by mouth daily. 10/16/2022 UNABLE TO FIND Med Name: Blood Pressure Test kit warfarin (COUMADIN) 5 mg tablet Take 5 mg by mouth once. Take on Mondays, Wednesdays, Fridays03/13/2023 warfarin (COUMADIN) 7.5 mg tablet Take 2.5 mg by mouth once. Take Saturdays, Saturday, Saturday, 01/04/2015 documented as of this encounter Plan of Treatment Not on file documented as of this encounter Procedures Procedure Name Priority Date/Time Associated Diagnosis Comments MR ABDOMEN WITHOUT AND WITH IV CONTRAST RAD - Routine (most inpatients and all outpatients) 02/13/2024 5:37 PM CDT Zfaf-Yypf-Zxjt Syndrome (HCC) documented in this encounter Results * MR Abdomen without and with [...] pheochromocytoma andserial follow-up to assess stability. Mike BERNSTEIN MRI PROCEDURES documented in this encounter Visit Diagnoses Diagnosis Acdc-Nixn-Cunf Syndrome (HCC) documented in this encounter Administered Medications Inactive Administered Medications - up to 3 most recent administrations Medication Order MAR Action Action Date Dose Rate Site gadobutrol injection 0.01-30 mL (GADAVIST) 0.01-30 mL, intravenous, Once in imaging, contrast, Starting on Dalila 02/13/24 at 1654, For 1 dose, Imaging Protocol Orders, Dose per Radiant Medication Guidelines Intrathecal doses greater than 0.25 mL not recommended. Given 02/13/2024 5:28 PM CDT 7 mL sodium chloride (PF) 0.9 % injection 1-100 mL 1-100 mL, intravenous, Once, On Dalila 02/13/24 at 1715, For 1 dose, Imaging Protocol Orders, Dose per Radiant Medication Guidelines Given 02/13/2024 5:28 PM CDT 50 mL documented in this encounter Care Teams Chief Petroleum Engineer Relationship Specialty Start Date End Date Elsewhere, Pcp PCP - General Internal Medicine 12/19/23 documented as of this encounter
--- OUTSIDE RECORDS SUMMARY | 2024-04-14 08:36 | XMS_ITS | Encounter Summary ---
Author Organization [facility] Address [address] [place] [address] Care Team Providers Care Life Insurance Sales Name Role Phone Unavailable Primary Care Provider Unavailabl e Reason for Visit * Procedure/Equipment (Routine) - Incomplete Specialty Diagnoses / Procedures Referred By Contac t Referred To Contact Procedures Foreign Image(S) XR Shoulder Rt Provider, [facility] [address] [place] [address] Referral ID Status Reason Start Date Expiration Date V isits Requested Visits Authorized [id number] Incomplete 03/31/2024 06/30/2025 1 1 Encounter Details Date Type Department Care Team (Late st Contact Info) Description 03/22/2024 Ancillary Procedure [facility] [address] [place] [address] Provider, [facility] [address] [place] [address] Social History Tobacco Use Types Packs/Day Years Used Date Smoking Tobacco: Former Alcohol Use Standard Drinks/Week Comments No 0 (1 standard drink = 0.6 oz pur e alcohol) Sex and Gender Information Value Date Recorded Sex Assigned at Not on file Gender Identity Not on file Sexual Orientation Not on file documented as of this encounter Plan of Treatment Not on file documented as of this encounter Procedures Procedure Name Priority Date/Time Associated Diagnosis Comments FOREIGN IMAGE(S) XR SHOULDER RT Routine 03/22/2024 12:00 AM CDT documented in this encounter Results * Foreign Image(S) XR Shoulder Rt (03/22/2024 12:00 AM CDT) Narrative POCT - 03/31/2024 1:57 PM CDT These outside images have been uploaded into PACS. If the results were provided, they will be located in the patient's chart under the Media or Imaging tab. Foreign Images Provider RAD NON-REPORTAB LES POCT documented in this encounter Visit Diagnoses Not on filedocumented in this encounter
--- OUTSIDE RECORDS SUMMARY | 2024-04-14 08:36 | XMS_ITS | Encounter Summary ---
Author Organization [facility] Address [address] [place] [address] Care Team Providers Care Faculty Head Name Role Phone Unavailable Primary Care Provider Unavailabl e Reason for Visit * Procedure/Equipment (Routine) - Incomplete Specialty Diagnoses / Procedures Referred By Contac t Referred To Contact Procedures Foreign Image(S) MR Shoulder Rt Provider, [facility] [address] [place] [address] Referral ID Status Reason Start Date Expiration Date V isits Requested Visits Authorized [id number] Incomplete 03/31/2024 06/30/2025 1 1 Encounter Details Date Type Department Care Team (Late st Contact Info) Description 03/26/2024 Ancillary Procedure [facility] [address] [place] [address] Provider, Foreign [facility] [address] [place] [address] Social History Tobacco Use Types Packs/Day Years [...] Priority Date/Time Associated Diagnosis Comments FOREIGN IMAGE(S) MR SHOULDER RT Routine 03/26/2024 12:00 AM CDT documented in this encounter Results * Foreign Image(S) MR Shoulder Rt (03/26/2024 12:00 AM CDT) Narrative POCT - 03/31/2024 1:57 PM CDT These outside images have been uploaded into PACS. If the results were provided, they will be located in the patient's chart under the Media or Imaging tab. Foreign Images Provider RAD NON-REPORTAB LES POCT documented in this encounter Visit Diagnoses Not on filedocumented in this encounter
--- OUTSIDE RECORDS SUMMARY | 2024-04-14 08:36 | XMS_ITS | Continuity of Care Document ---
Author Organization [facility] Address [address] [place] [address] Phone Care Team Providers Care Investment Consultant Name Role Phone Sabiha Rose MD Unavailable Unavailable Allergies, Adverse Reactions, Alerts Substance Reaction Status Criticality Sulfa (Sulfonamide Antibiotics) Active No Information Medications Medication Instructions Dosage Effective Dates (start - stop) Status Comments warfarin 5 mg tablet as directed - Active atenolol 50 mg tablet take 1 Tablet (50MG) by oral route every day 50 MG - Active cephalexin 500 mg tablet take 1 tablet (500MG) by oral route every 12 hours 500 MG - Active Lexapro 20 mg tablet take 1 tablet (20MG) by oral route every day 20 MG - Active lamotrigine 200 mg tablet take 1 tablet (200MG) by oral route every day 200 MG - Active ALLERGY MEDICINE (unknown strength) OTC as needed Not Available - Active tizanidine 4 mg capsule take 1 capsule (4MG) by oral route 3 times every day 4 MG - Active Advair Diskus 100 mcg-50 mcg/dose for Inhalation inhale 1 puff by inhalation route 2 times every day in the morning and evening approximately 12 hours apart 1.00 puff - Active SUBOXONE (unknown strength) 1 daily, 20mg Not Available - Active Procedures Procedure Date Inj Tendon Sheath/Ligament Drain/Inject, Joint/Bursa Methylprednisolone 80 Mg Inj Methylprednisolone 20 Mg Inj Office/Outpatient Visit, Est Surgical Trays Office/Outpatient Visit, New Routine Venipuncture Specimen Handling Complete Cbc WAuto Diff Wbc Rbc Sed Rate, Nonautomated Assay Of Blood/Uric Acid CReactive Protein Assay Of Serum Albumin Assay Of Creatinine Transferase Ast Sgot Alanine Amino Alt Sgpt XRay Exam Of Hand 2v Advance Directives Directive Yes / No Effective Date File Name Resuscitation Not Answered N/A N/A Life Support Not Answered N/A N/A Intubation Not Answered N/A N/A Antibiotics Not Answered N/A N/A IV Fluid Support Not Answered N/A N/A Tube Feed Not Answered N/A N/A Other Directive N/A N/A WARNING:The information contained in this section is historical and is provided for information only and does not constitute a legal document or any assurance that the information is still accurate. Please verify the information with the aguilar of the legal document before using it for clinical purposes. Encounters Encounter Description Practice Location Reason(s) For Visit Diagnoses Date Provider Providers Copied on Encounter Office/Outpa tient Visit, Est [facility], [address], [place], [address], [place] tel:[phone] [facility] , Pain (chief complaint) Pain in joint involving multiple sitesTrigger finger (acquired)Os teoarthrosis , localized, primary, involving handMyalgia and myositis, unspecified 0-201 3 Milton Landis. [facility] [address], [place], [address], [place]. tel:[phone] Referring Provider: Sabiha Bonds, [facility] [address], [place], [address]. tel:[phone] Office/Outpa tient Visit, New [facility], [address], [place], [address], [place] tel:[phone] [facility] , Joint Pain (chief complaint) Pain in joint involving multiple sitesTrigger finger (acquired) Sep-2 5-201 3 Milton Landis. [facility] [address], [place], [address], [place]. tel:[phone] Referring Provider: Sabiha Bonds, [facility] [address], [place], [address]. tel:[phone] [facility], [address], [place], [address], [place] tel:[phone] [facility] , No Information 3 Milton Ladnis. [facility] [address], [place], [address], [place]. tel:[phone] Referring Provider: Sabiha Bonds, [facility] [address], [place], [address]. tel:[phone] Family History Family Member Type Diagnosis Age At Onset No Information Payers Payer name Insurance type Covered green party ID Authoryobani layne(s) [facility] [id number] Social History Type Description Quantity Date Captured Comments Alcohol Use Details No Caffeine Use Details Unknown Tobacco Use Status No Information Smoking Status Former smoker Smoking Tobacco Use Details Cigarette: No Details Available Cigarette: No Details Available Sex Female Vital Signs Date / Time: Height Weight BMI Pulse Rate Blood Pressure Temperature Respiratory Rate Body Surface Area Head Circumference Head Circ. Percentile Wt./Zeyad. Percentile BMI percentile Pulse Ox Inhaled Ox 11:18 AM 126/80 mm[Hg] 98.90 F Chief Complaint And Reason For Visit From encounter dated '08/27/2013 10:45'. Pain (chief complaint) Reason For Referral Reason For Referral No [...]
--- OUTSIDE RECORDS SUMMARY | 2024-04-14 08:36 | XMS_ITS | Clinical Summary ---
Author Organization [facility] Address [address], [place] [address] Care Team Providers Care Functional Support Analyst Name Role Phone Needs Pcp, Assignment Primary Care Provider [phone] Source Comments You are receiving this document as you are listed as the primary care provider,follow-up provider, or the patient has been referred to you for consultation.This is in compliance with the Medicare and[facility] EHR Incentive Program,which states Providers who transition their patient to another setting of careor provider of care or refers their patient to another provider of care shouldprovide summary care record for each transition of care or referral. [facility] Allergies Active Allergy Reactions Criticality Noted Date Comments Buspirone 10/08/2019 Gabapentin 10/08/2019 Naproxen 10/08/2019 Nortriptyline 10/08/2019 Paroxetine 10/08/2019 Piroxicam 10/08/2019 Prednisone 10/08/2019 Medications Medication Sig Dispensed Refills Start Date End Date Status warfarin (AKA COUMADIN) 7.5 MG tabletIndications:V aricose veins of lower extremities with other complications Take 0.5-2 tablets by mouth daily (every 24 hours). Adjust dose per INR value and instructions. 01/04/2015 Active lamoTRIgine (AKA LAMICTAL) 200 MG tabletIndications:MISHA FLANAGAN Jan 04, 2015 2:16 PM Received from: External Pharmacy Indications: PN: MISHA LOPEZ Jan 04, 2015 2:16 PM Received from: External Pharmacy 01/03/2015 Active escitalopram oxalate (AKA LEXAPRO) 10 MG tabletIndications:V aricose veins of lower extremities with other complications Take 20 mg by mouth daily (every 24 hours). 01/04/2015 Active Buprenorphine HCl-Naloxone HCl 8-2 MG FILMIndications:ALONDRA MISHA CARTAGENA Jan 04, 2015 2:16 PM Received from: External Pharmacy Indications: PN: MISHA LOPEZ Jan 04, 2015 2:16 PM Received from: External Pharmacy 12/08/2014 Active folic acid 1 MG tablet Take 1 mg by mouth daily (every 24 hours). 01/14/2015 Active Glucosamine HCl-MSM (GLUCOSAMINE-MSM OR) Take by mouth. 01/14/2015 Active Multiple Vitamins-Minerals (MULTI FOR HER OR) Take by mouth. 01/14/2015 Ac tive ondansetron (ZOFRAN) 4 MG tablet Take 4 mg by mouth every 8 hours as needed for Nausea or Vomiting. 01/14/2015 Active tiZANidine (ZANAFLEX) 4 MG tablet Take 4 mg by mouth 3 times daily. 01/14/2015 Active omega-3 fatty acids (FISH OIL) 1000 MG capsule Take 1 capsule by mouth daily (every 24 hours). 01/14/2015 Active cephALEXin (KEFLEX) 500 MG capsule Indications: PN: 01/14/2015 Acti ve calcium carbonate (CALCARB 600) 1500 (600 CA) MG Take 600 mg by mouth daily (every 24 hours). 01/14/2015 Active fluticasone-salmete rol (ADVAIR) 100-50 MCG/DOSE diskus inhaler Inhale 1 puff every 12 hours. Rinse mouth/Gargle after use 01/14/2015 Active enoxaparin (LOVENOX) 60 MG/0.6ML SOLN injection Inject 60 mg subcutaneously every 12 hours. 01/14/2015 Active HYDROcodone-acetami nophen (NORCO) 5-325 MG tablet Take 1-2 tablets by mouth every 6 hours as needed. 30 tablet 0 01/17/2015 Active Additional Information Patient not taking.Reported on 08/21/2019 ALBUterol sulfate HFA 108 (90 BASE) MCG/ACT inhaler Inhale 2 puffs every 6 hours as needed for Wheezing. 01/14/2015 Active oxyCODONE-acetamino phen (PERCOCET) 5-325 MG tablet Take 1-2 Tablets by mouth every 4 hours as needed for Pain. Maximum acetaminophen dose is 4000 mg in 24 hours. 10 Tablet 10/12/2019 Active Active Problems Problem Noted Date Diagnosed Date Varicose veins of both lower extremities with co mplications 08/21/2019 Overview: Added automatically from request for surgery [id number] Encounters Date Type Department Care Team Description 03/26/2024 Ancillary Procedure Radiology PACS [address] [place] [address] Provider, Foreign Images 03/22/2024 12:05 AM CDT Ancillary Procedure Radiology PACS [address] [place] [address] Provider, Foreign Images 03/22/2024 Ancillary Procedure Radiology PACS [address] [place] [address] Provider, Foreign Images from Last 3 Months Social History Tobacco Use Types Packs/Day Years Used Date Smoking Tobacco: Former Alcohol Use Standard Drinks/Week Comments No 0 (1 standard drink = 0.6 oz pur e alcohol) Sex and Gender Information Value Date Recorded Sex Assigned at Not on file Gender Identity Not on file Sexual Orientation Not on file Last Filed Vital Signs Vital Sign Reading Time Taken Comments Blood Pressure 124/70 10/12/2019 12:00 PM [employer] Pulse 77 10/12/2019 12:00 PM [employer] Temperature 35.8 ??C (96.4 ??F) 10/12/2019 11:[address] Respiratory Rate 12 10/12/2019 12:00 PM [employer] Oxygen Saturation 94% 10/12/2019 12:00 PM [employer] Inhaled Oxygen Concentration - - Weight 65.3 kg (144 lb) 10/08/2019 2:20 PM [employer] Height 162.7 cm (5' 4.06) 10/08/2019 2:20 PM CS T Body Mass Index 24.67 10/08/2019 2:20 PM [employer] Plan of Treatment Health Maintenance Due Date Last Done Comments Cervical Cancer Screening Due 1960 Colon Cancer Screening Plan Due 1960 Hep C Screening (Preventive Services) 1960 Adult Preventive Visit 1977 Cholesterol 2004 COVID-19 Vaccine ( season) 2023 08/08/2022, 03/15/2022, 10/19/2021, Additional history exists Mammogram 12/10/2024 12/10/2023, 12/0 04/2022, 10/19/2021, Additional history exists DTaP/Tdap/Td (2 - Tdap) 01/10/2025 01/10/2015, 01/25 Pneumococcal Aged Out 07/23/2019, 08/25/2013 No lo nger eligible based on patient's age to complete this topic Zoster/Shingles Completed 11/22/2020, 04/0 02/2019, 08/11/2018 HIV Screening (Preventive Services) Completed 11/01/2022 Influenza Completed 08/12/2023, 07/20, 07/03/2021, Additional history exists HepA Aged Out No longer eligi ble based on patient's age to complete this topic HepB Aged Out No longer eligi ble based on patient's age to complete this topic Hib Aged Out No longer eligi ble based on patient's age to complete this topic IPV (Polio) Aged Out No longer eligi ble based on patient's age to complete this topic MCV4 Aged Out No longer eligi ble based on patient's age to complete this topic Procedures Procedure Name Priority Date/Time Associated Diagnosis Comments FOREIGN IMAGE(S) MR SHOULDER RT Routine 03/26/2024 12:00 AM CDT FOREIGN IMAGE(S) XR HUMERUS RT Routine 03/22/2024 12:05 AM CDT FOREIGN IMAGE(S) XR SHOULDER RT Routine 03/22/2024 12:00 AM CDT MM MAMMOGRAM SCREENING BILAT W 3D CAROLE W CAD Routine 12/10/2023 10:38 AM [employer] from Last 3 Months or Most Recently Relevant to Health Maintenance Results * Foreign Image(S) MR Shoulder Rt (03/26/2024 12:00 AM CDT) Narrative POCT - 03/31/2024 1:57 PM CDT These outside images have been uploaded into PACS. If the results were provided, they will be located in the patient's chart under the Media or Imaging tab. Foreign Images Provider RAD NON-REPORTAB LES POCT * Foreign Image(S) XR Humerus Rt (03/22/2024 12:05 AM CDT) Narrative POCT - 03/31/2024 1:57 PM CDT These outside images have been uploaded into PACS. If the results were provided, they will be located in the patient's chart under the Media or Imaging tab. Foreign Images Provider RAD NON-REPORTAB LES Performing Organization Address City/[facility] de Phone Number POCT * Foreign Image(S) XR Shoulder Rt (03/22/2024 12:00 AM CDT) Narrative POCT - 03/31/2024 1:57 PM CDT These outside images have been uploaded into PACS. If the results were provided, they will be located in the patient's chart under the Media or Imaging tab. Foreign Images Provider RAD NON-REPORTAB LES Performing Organization Address City/[facility] de Phone Number POCT from Last 3 Months or Most Recently Relevant to Health Maintenance Advance Directives * Full Code (Latest Code Status on File) Date Activated Date Inactivated Comments 10/12/2019 9:44 AM 10/12/2019 2:34 PM * Full Code Date Activated Date Inactivated Comments 01/17/2015 9:27 AM 01/17/2015 2:17 PM Care Teams Functional Support Analyst Relationship Specialty Start Date End Date Needs Pcp, [place] [address] PCP - General 04/01/24
--- OUTSIDE RECORDS SUMMARY | 2024-04-14 08:36 | XMS_ITS | Clinical Summary ---
Author Organization [facility] Address [address] [place] [address] Care Team Providers Care Video Network Engineer Name Role Phone Cindi Torres MD Primary Care Provider [phone] Allergies Active Allergy Reactions Criticality Noted Date Comments Buspirone 04/17/2006 intolerant Gabapentin 06/23/2010 intolerance Naproxen 04/17/2006 intolerant colitis Nortriptyline 04/17/2006 intolerant Paroxetine 04/17/2006 intolerant Piroxicam 02/01/2007 rash Prednisone 04/17/2006 intolerant rash Medications Medication Sig Dispensed Refills Start Date End Date Status albuterol HFA (PROVENTIL;VENTOLIN HFA) 90 mcg/actuation Inhl inhaler Inhale 2 puffs every 4 (four) hours as needed for shortness of breath or Wheezing. Active escitalopram oxalate (LEXAPRO) 20 mg oral tablet Take 20 mg by mouth once daily. Active lamoTRIgine (LAMICTAL) 200 mg oral tablet Take 200 mg by mouth every evening. Active traZODone (DESYREL) 100 mg oral tablet Take 100 mg by mouth at bedtime. Active warfarin (COUMADIN) 5 mg oral tablet Take 5 mg by mouth Once a day every Saturday, Saturday, and Saturday. Active fluticasone 100 mcg-salmeterol 50 mcg (ADVAIR) 100-50 mcg/dose Inhl DsDv diskus inhaler Inhale 1 puff twice a day. Active warfarin (COUMADIN) 5 mg oral tablet Take 2.5 mg by mouth every Saturday, Saturday and Saturday. Active fexofenadine (CLIFFORD) 180 mg oral tablet Take 180 mg by mouth once a day as needed (seasonal allergies). Active acetaminophen (TYLENOL) 500 mg oral tablet Take 2 tablets (1,000 mg) by mouth every 6 (six) hours as needed. 02/14/2020 Active hydrOXYzine pamoate (VISTARIL) 25 mg oral capsule Take 1 capsule (25 mg) by mouth every 6 (six) hours as needed. 30 capsule 02/14/2020 Active methocarbamoL (ROBAXIN) 500 mg oral tablet Take 2 tablets (1,000 mg) by mouth every 6 (six) hours as needed. 40 tablet 02/14/2020 Active oxyCODONE, immediate release, (ROXICODONE) 5 mg oral tablet Take 1-2 tablets (5-10 mg) by mouth every 4 (four) hours as needed. 30 tablet 02/14/2020 Active polyethylene glycol (MIRALAX) 17 gram oral packet Take 17 g by mouth once a day as needed for constipation. Mix each dose in 4-8 ounces of liquid as directed. 0 02/14/2020 Active senna-docusate (SENNA-S) 8.6-50 mg oral tablet Take 1-2 tablets by mouth twice a day. 0 02/14/2020 Active polyethylene glycol (MIRALAX) 17 gram oral packet Take 17 g by mouth once daily. Mix each dose in 4-8 ounces of liquid as directed. 0 02/17/2020 Active lidocaine 5% (LIDODERM) Top patch Apply 1-2 patches to skin once daily. Keep on for 12 hours and remove for 12 hours 15 patch 02/16/2020 Active Active Problems Problem Noted Date Diagnosed Date Hx of lupus anticoagulant disorder 02/16/2020 Chronic anticoagulation 02/16/2020 Back pain, chronic 02/16/2020 Anemia 02/16/2020 Closed fracture of left distal femur 02/11/2020 Closed fracture of distal en d of left femur, unspecified fracture morphology, initial encounter 02/11/2020 Overview: Added automatically from request for surgery [id number] Fall down stairs, initial encounter 02/11/2020 Acute pain due to trauma 02/11/2020 Social History Tobacco Use Types Packs/Day Years Used Date Smoking Tobacco: Never Alcohol Use Standard Drinks/Week Comments Never 0 (1 standard drink = 0.6 oz pur e alcohol) AUDIT-C Answer Date Recorded Q1: How often do you have a drink containing alc ohol? Never 02/12/2020 Average Number of Drinks Not on file 020 Frequency of Binge Drinking Not on file 01/17 Sex and Gender Information Value Date Recorded Sex Assigned at Not on file Gender Identity Not on file Sexual Orientation Not on file Last Filed Vital Signs Vital Sign Reading Time Taken Comments Blood Pressure 122/76 02/16/2020 1:52 PM CDT Pulse 98 02/16/2020 1:52 PM CDT Temperature 36.7 ??C (98.1 ??F) 02/16/2020 1:52 PM CD T Respiratory Rate 18 02/16/2020 1:52 PM CDT Oxygen Saturation 98% 02/16/2020 1:52 PM CDT Inhaled Oxygen Concentration - - Weight 65.8 kg (145 lb) 02/12/2020 6:15 AM CDT Height 162.6 cm (5' 4) 02/12/2020 6:15 AM CDT Body Mass Index 24.89 02/12/2020 6:15 AM CDT Plan of Treatment Health Maintenance Due Date Last Done Comments Colonoscopy 1959 Hepatitis C Screening 1959 Lipid Screening 1960 Mammogram Screening 1960 Pap Smear 1959 Anxiety Screening (ANGE-2) 1960 Depression Assessment (PHQ-2) 1960 RSV 60+ Yrs (1 - 1-dose 60+ series) 2019 Yearly Review of HCD 02/10/2021 02/11/2020 COVID-19 Vaccine ( - 2022- season) 2023 Influenza Vaccine (Season Ended) 2024 09/24/2011, 08/08/2010, 10/26/2009 Pneumococcal <65 (3 of 3 - P PSV23 or PCV20) 2024 07/23/2019, 08/25/2013 Adult Tetanus Booster 01/10/2025 01/10/2015, 005 Zoster Vaccine Completed 02/19/2019, 08/11/2018 Medical Devices Implanted Type Area Theatre Instructor Device Identifier Shelf Expiration Date Model / Serial / Lot Cancellous Cubes 15cc - [id number] Implanted:Qty: 1 on 02/12/2020 by Yemi Lopez MD at [facility] Bone Left: Femur [employer] 09/09/2024 [id number] / [id number] / Pl 4.5m Lcp Ti Cvd Cond 14h L - [id number] Implanted:Qty: 1 on 02/12/2020 by Yemi Lopez MD at [facility] Plate Left: Femur Synthes 04.124.415 / / Screw Opti Lck 5.0mm 75mm - [id number] Implanted:Qty: 2 on 02/12/2020 by Yemi Lopez MD at [facility] Screw/Anc hor Left: Femur Synthes 42.231.275 / / Screw Opti Lck 5.0mm 80mm - [id number] Implanted:Qty: 2 on 02/12/2020 by Yemi Lopez MD at [facility] Screw/Anc hor Left: Femur Synthes 42.231.280 / / Screw Opti Lck 5.0mm 85mm - [id number] Implanted:Qty: 1 on 02/12/2020 by Yemi Lopez MD at [facility] Screw/Anc hor Left: Femur Synthes 42.231.285 / / Screw Ti Cortex St 4.5mm 36mm - [id number] Implanted:Qty: 3 on 02/12/2020 by Yemi Lopez MD at [facility] Screw/Anc hor Left: Femur Synthes 414.836 / / Screw Opti Lck 5.0mm 36mm - [id number] Implanted:Qty: 1 on 02/12/2020 by Yemi Lopez MD at [facility] Screw/Anc hor Left: Femur Synthes 42.231.236 / / Scr Ti Cnc F/Th4.0/50 406.050 - [id number] Implanted:Qty: 1 on 02/12/2020 by Yemi Lopez MD at [facility] Screw/Anc hor Left: Femur Synthes 406.050 / / Scr Ti Cncth 4m/50 407.050 - [id number] Implanted:Qty: 1 on 02/12/2020 by Yemi Lopez MD at [facility] Screw/Anc hor Left: Femur Synthes 407.050 / / Scr Ti Crtx S/T3.5/34 404.834 - [id number] Implanted:Qty: 1 on 02/12/2020 by Yemi Lopez MD at [facility] Screw/Anc hor Left: Femur Synthes 404.834 / / Scr Ti Crtx S/T3.5/36 404.836 - [id number] Implanted:Qty: 1 on 02/12/2020 by Yemi Lopez MD at [facility] Screw/Anc hor Left: Femur Synthes 404.836 / / Scr Ti Crtx S/T3.5/38 404.838 - [id number] Implanted:Qty: 2 on 02/12/2020 by Yemi Lopez MD at [facility] Screw/Anc hor Left: Femur Synthes 404.838 / / Scr Ti Cnc F/Th4.060 406.060 - [id number] Implanted:Qty: 1 on 02/12/2020 by Ymei Lopez MD at [facility] Screw/Anc hor Left: Femur Synthes 406.060 / / Scr Ti Cnc F/Th4.0/55 406.055 - [id number] Implanted:Qty: 1 on 02/12/2020 by Yemi Lopez MD at [facility] Screw/Anc hor Left: Femur Synthes 406.055 / / Screw Opti Lck 5.0mm 70mm - [id number] Implanted:Qty: 1 on 02/12/2020 by Yemi Lopez MD at [facility] Screw/Anc hor Left: Femur Synthes 42.231.270 / / Explanted Type Area Theatre Instructor Device Identifier Shelf Expiration Date Model / Serial / Lot Scr Ti Cnc F/Th4.060 406.060 - [id number] Implanted:Yemi Whitfield MD (Quantity not on file) Explanted:Qty: 1 on 02/12/2020 by Yemi Lopez MD at [facility] Screw/Anc hor Left: Femur Synthes 406.060 / / Screw Ti Cortex St 4.5mm 46mm - [id number] Explanted:Qty: 1 on 02/12/2020 at [facility] Screw/Anc hor Left: Femur Synthes 414.846 / / Screw Ti Sukhwinder Con 5.0mm 75mm - [id number] Implanted:Qty: 1 Explanted:Qty: 1 on 02/12/2020 at [facility] Screw/Anc hor Left: Femur Synthes 04.205.275 / / Advance Directives For more information, please contact: [phone] * Full Code (Latest Code Status on File) Date Activated Date Inactivated Comments 02/11/2020 5:10 AM 02/16/2020 9:30 PM Question Answer Comments How was code status determined? Physician Determ ined Care Teams Video Network Engineer Relationship Specialty Start Date End Date Cindi Torres MD [address] [facility] [address] PCP - General 02/11/20
--- OUTSIDE RECORDS SUMMARY | 2024-04-14 08:36 | XMS_ITS | Encounter Summary ---
[facility] Address [address] [place] [address] Care Team Providers Care Schedule Analyst Name Role Phone Unavailable Primary Care Provider Unavailabl e Reason for Visit * Procedure/Equipment (Routine) - Incomplete Specialty Diagnoses / Procedures Referred By Contac t Referred To Contact Procedures Foreign Image(S) XR Humerus Rt Provider, Foreign Images [address] [place] [address] Referral ID Status Reason Start Date Expiration Date V isits Requested Visits Authorized [id number] Incomplete 03/31/2024 06/30/2025 1 1 Encounter Details Date Type Department Care Team (Late st Contact Info) Description 03/22/2024 12:05 AM CDT Ancillary Procedure [facility] Radiology PACS [address] [place] [address] Provider, Foreign Images [address] [place] [address] Social History Tobacco Use Types Packs/Day Years [...] Date/Time Associated Diagnosis Comments FOREIGN IMAGE(S) XR HUMERUS RT Routine 03/22/2024 12:05 AM CDT documented in this encounter Results * Foreign Image(S) XR Humerus Rt (03/22/2024 [...]
--- OUTSIDE RECORDS SUMMARY | 2024-04-14 08:36 | XMS_ITS | Referral Summary ---
Author Organization [facility] Address [address] [place] [address] Care Team Providers Care Drug Discovery Informatics Specialist Name Role Phone Cindi Torres MD Primary Care Provider [phone] Allergies Active Allergy Reactions Criticality Noted Date [...] Overview: Added automatically from request for surgery [id number] Fall down stairs, initial encounter 02/11/2020 Acute [...] 02/12/2020 6:15 AM CDT Plan of Treatment Not on file Medical Devices Implanted Type Area Surveillance Director Device Identifier Shelf Expiration Date Model / Serial / Lot Cancellous Cubes 15cc - [id number] Implanted:Qty: 1 on 02/12/2020 by Yemi Lopez MD at [facility] Bone Left: Femur [employer] 09/09/2024 [id number] / [id number] / Pl 4.5m Lcp Ti Cvd Cond 14h L - [id number] Implanted:Qty: 1 on 02/12/2020 by Yemi Lopez MD at [facility] Plate Left: Femur Synthes 04.124.415 / / Screw Opti Lck 5.0mm 75mm - [id number] Implanted:Qty: 2 on 02/12/2020 by Yemi Lopez MD at [facility] Screw/Anc hor Left: Femur Synthes 42.231.275 / / Screw Opti Lck 5.0mm 80mm - [id number] Implanted:Qty: 2 on 02/12/2020 by Yemi Lopez MD at [facility] Screw/Anc hor Left: Femur Synthes 42.231.280 / / Screw Opti Lck 5.0mm 85mm - [id number] Implanted:Qty: 1 on 02/12/2020 by Yemi Lopez MD at [facility] Screw/Anc hor Left: Femur Synthes 42.231.285 / / Screw Ti Cortex St 4.5mm 36mm - [id number] Implanted:Qty: 3 on 02/12/2020 by Yemi Lopez MD at [facility] Screw/Anc hor Left: Femur Synthes 414.836 / / Screw Opti Lck 5.0mm 36mm - [id number] Implanted:Qty: 1 on 02/12/2020 by Yemi Lopez MD at [facility] Screw/Anc hor Left: Femur Synthes 42.231.236 / / Scr Ti Cnc F/Th4.0/50 406.050 - [id number] Implanted:Qty: 1 on 02/12/2020 by Yemi Lopez MD at [facility] Screw/Anc hor Left: Femur Synthes 406.050 / / Scr Ti Cncth 4m/50 407.050 - [id number] Implanted:Qty: 1 on 02/12/2020 by Yeim Lopez MD at [facility] Screw/Anc hor Left: Femur [employer]ynthes 407.050 / / Scr Ti Crtx S/T3.5/34 404.834 - [id number] Implanted:Qty: 1 on 02/12/2020 by Yemi Lopez MD at [facility] Screw/Anc hor Left: Femur [employer]ynthes 404.834 / / Scr Ti Crtx S/T3.5/36 404.836 - [id number] Implanted:Qty: 1 on 02/12/2020 by Yemi Lopez MD at [facility] Screw/Anc hor Left: Femur [employer]ynthes 404.836 / / Scr Ti Crtx S/T3.5/38 404.838 - [id number] Implanted:Qty: 2 on 02/12/2020 by Yemi Lopez MD at [facility] Screw/Anc hor Left: Femur Synthes 404.838 / / Scr Ti Cnc F/Th4.0/60 406.060 - [id number] Implanted:Qty: 1 on 02/12/2020 by Yemi Lopez MD at [facility] Screw/Anc hor Left: Femur [employer]ynthes 406.060 / / Scr Ti Cnc F/Th4.0/55 406.055 - [id number] Implanted:Qty: 1 on 02/12/2020 by Yemi Lopez MD at [facility] Screw/Anc hor Left: Femur Synthes 406.055 / / Screw Opti Lck 5.0mm 70mm - [id number] Implanted:Qty: 1 on 02/12/2020 by Yemi Lopez MD at [facility] Screw/Anc hor Left: Femur Synthes 42.231.270 / / Explanted Type Area Surveillance Director Device Identifier Shelf Expiration Date Model / Serial / Lot Scr Ti Cnc F/Th4.0/60 406.060 - [id number] Implanted:Yemi Whitfield MD (Quantity not on file) Explanted:Qty: 1 on 02/12/2020 by Yemi Lopez MD at [facility] Screw/Anc hor Left: Femur Synthes 406.060 / / Screw Ti Cortex St 4.5mm 46mm - [id number] Explanted:Qty: 1 on 02/12/2020 at [facility] Screw/Anc hor Left: Femur Synthes 414.846 / / Screw Ti Sukhwinder Con 5.0mm 75mm - [id number] Implanted:Qty: 1 Explanted:Qty: 1 on 02/12/2020 at [facility] Screw/Anc hor Left: Femur Synthes 04.205.275 / / Advance Directives For more information, please contact: [phone] * Full Code (Latest Code Status on File) Date Activated Date Inactivated Comments 02/11/2020 5:10 AM 02/16/2020 9:30 PM Question Answer Comments How was code status determined? Physician Determ ined Care Teams Drug Discovery Informatics Specialist Relationship Specialty Start Date End Date Cindi Torres MD [address] [place] [address] [facility] - General 02/11/20
--- OUTSIDE RECORDS SUMMARY | 2024-04-14 08:37 | XMS_ITS | Clinical Summary ---
Author Organization [facility] Address [place], [place] [address] Care Team Providers Care Tubing Mill Setter Name Role Phone Cindi Torres MD Primary Care Provide r Allergies Active Allergy Reactions Criticality Noted Date Comments Buspirone 04/17/2006 intolerant Gabapentin 06/23/2010 intolerance Naproxen 04/17/2006 intolerant colitis Nortriptyline 04/17/2006 intolerant Paroxetine 04/17/2006 intolerant Penicillins GI Upset 01/26/2022 Piroxicam 02/01/2007 rash Prednisone 04/17/2006 intolerant rash Unlisted Allergen (Include Detail In Comments) 09/18/2010 Straterra-headache and dry mouth Medications Medication Sig Dispensed Refills Start Date End Date Status MULTIVITAMIN TAB take 1 tablet by oral route once daily with food 0 02/09/2008 Active FOLIC ACID 1 MG TAB take 1 tablet (1 mg) by oral route once daily 0 08/02/2008 Active GLUCOSAMINE ORAL Take 1 Tablet by mouth once daily. 0 01/10/2009 Active Blood Pressure Test Kit-Large (QUICK RESPONSE BP MONITOR) KitIndications:Un specified essential hypertension As directed. Diagnosis: 401.0 hypertension Large arm cuff 1 Kit 0 11/02/2011 Active MISCELLANEOUS MEDICAL SUPPLY (GRADUATED COMPRESSION STOCKINGS)Indicat ions:Leg swelling For personal use. Length thigh. Strength 16-20 mmHg 1 Packet 1 07/15/2014 Active lidocaine 5% (LIDODERM) 5 % patch Apply 1 patch to painful area of skin for up to 12 hours within a 24-hour period. Takes PRN. 30 Patch 2 04/12/2016 Active phototherapy light box In the winter. 1 unit 0 04/12/2016 Active BiPapIndications: Central sleep apnea due to drug BIPAP machine for home use at pressure: autoadapt EEP 4, PS 3-15, back up rate auto 1 Device 10/28/2017 Active methocarbamoL (ROBAXIN) 500 mg tablet Take 500-1,000 mg by mouth every 8 hours if needed for Other (Specify) (muscle pain and spasm). 25 tablet 02/18/2020 Active cloNIDine HCL (CATAPRES) 0.1 mg tablet Take 0.1 mg by mouth 3 times daily if needed (anxiety). 04/07/2020 Active buprenorphine-nal oxone, 8 mg-2 mg, (SUBOXONE) film sublingual Place 3 Film under the tongue once daily. 09/20/2021 Active calcium carbonate (CALCIUM 600 ORAL) Take 1 Tablet by mouth once daily. Active escitalopram oxalate (LEXAPRO) 20 mg tabletIndications :Other bipolar disorder (HC),Generalized anxiety disorder Take 1 Tablet (20 mg) by mouth once daily. 90 Tablet 3 12/10/2023 Active lamoTRIgine (LAMICTAL) 200 mg tabletIndications :Other bipolar disorder (HC) Take 1 Tablet (200 mg) by mouth once daily. 90 Tablet 3 12/10/2023 Active albuterol HFA (ProAir HFA) 90 mcg/actuation inhalerIndication s:Mild intermittent asthma without complication Inhale 2 Puffs by mouth every 4 hours if needed for Shortness of Breath 1st choice. Two puffs prn. 3 Each 12 12/10/2023 Active fexofenadine (CLIFFORD) 180 mg tabletIndications :Allergic rhinitis due to pollen, unspecified seasonality Take 180 mg by mouth once daily. 90 Tablet 3 12/10/2023 Active fluticasone propion-salmetero L (Advair Diskus) 250-50 mcg/Dose diskus inhalerIndication s:Pewy-Yeyx-Jqef syndrome Inhale 1 Puff by mouth two times daily. 60 Each 5 12/10/2023 Active estradioL (Vagifem) 10 mcg tab vaginal tabletIndications :Atrophic vaginitis INSERT 1 TABLET INTO THE VAGINA EVERY SATURDAY AND SATURDAY 16 Tablet 6 02/18/2024 Active lidocaine 5 % topical patchIndications: Injury of right shoulder, initial encounter,Injury of right rotator cuff, initial encounter Apply on dry, clean, hairless skin. Apply 1 patch to painful area of skin for up to to 12 hours within 24 hour period. 30 Patch 1 03/22/2024 Active warfarin (COUMADIN) 2.5 mg tabletIndications :Bilateral pulmonary embolism (HC),Anticoagulat ion monitoring, special range Take by mouth 04/09: Hold; 04/10: Hold; 04/11: Hold; 04/12: Hold; 04/13: Hold; Otherwise 5 mg every Mon, Wed, Sat; 7.5 mg all other days 04/10/2024 Active warfarin (COUMADIN) 5 mg tabletIndications :Bilateral pulmonary embolism (HC),Anticoagulat ion monitoring, special range Take by mouth 04/09: Hold; 04/10: Hold; 04/11: Hold; 04/12: Hold; 04/13: Hold; Otherwise 5 mg every Mon, Wed, Fri; 7.5 mg all other days 04/10/2024 Active warfarin (COUMADIN) 5 mg tabletIndications :Bilateral pulmonary embolism (HC),Anticoagulat ion monitoring, special range Take by mouth 5 mg (5 mg x 1) every Mon, Wed, Fri; 7.5 mg (5 mg x 1 and 2.5 mg x 1) all other days or as directed 90 Tablet 02/17/2024 4 Discontinued (Other - add note to specify (E-cancel not sent)) warfarin (COUMADIN) 2.5 mg tabletIndications :Bilateral pulmonary embolism (HC),Anticoagulat ion monitoring, special range Take by mouth 5 mg (5 mg x 1) every Mon, Wed, Fri; 7.5 mg (5 mg x 1 and 2.5 mg x 1) all other days in the evening OR as directed 52 Tablet 03/10/2024 4 Discontinued (Other - add note to specify (E-cancel not sent)) Active Problems Problem Noted Date Diagnosed Date 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 Lupus anticoagulant syndrome 09/13/2023 Multiple idiopathic cysts of lung 09/13/2023 Lung cyst 07/21/2023 07/21/2023 Mitral valve disorder 07/21/2023 07/21/2023 Orthostatic hypotension 07/21/2023 07/21/20 23 Influenza 11/08/2022 Sepsis 11/08/2022 Community acquired bilateral lower lobe pneumoni a 11/08/2022 Lupus anticoagulant disorder 11/08/2022 Hyponatremia 11/08/2022 Pap smear for cervical cancer screening 11/02/20 Overview: 09/2022 NIL Plan: Routine screening Central sleep apnea due to drug, 08/15/17 AHI-43 10/28/2017 GABY 08/15/2017 AHI-43, Central apnea index >25/Hr suboxone 09/02/2017 Central apnea, Greater then 25/Hr central apnea index 08/15/2017 09/02/2017 Controlled substance agreement signed 06/25/2017 Overview: Signed: 09/05/2011-Dr. Waqar Prescott MD / psychiatry Low back pain without sciatica 02/28/2016 Generalized anxiety disorder 01/10/2015 Anticoagulation monitoring, CFX 20-30% 4 Asthma 07/29/2014 Peripheral venous insufficiency 05/23/2013 07/21/2023 Peroneal tendonitis 05/22/2013 Narcotic dependence 05/19/2013 Overview: On suboxone, off narcotics 3+ years Stenosis of cervical spine region 03/27/2013 Cervical radicular pain 02/25/2013 Displacement of cervical int ervertebral disc without myelopathy 12/03/2012 Other and unspecified alcohol dependence, in rem ission 06/25/2012 Pain medication - avoid narcotics for chronic pa in 01/08/2012 Overview: Early refills and overuse, I have sent her for further assessment. Chronic insomnia 06/08/2011 ADHD NOS 05/02/2009 Other bipolar disorders 04/13/2008 Unspecified essential hypertension 01/16/2008 Backache, unspecified 02/01/2007 Overview: radiculopathy T-10-11 Primary hypercoagulable state 04/23/2006 Bilateral pulmonary embolism 04/18/2006 Overview: Massive, bilateral (central and peripheral), acute pulmonary embolism bt CTA 04/16/06 2 cm nodule in the LLL needs f/u chest CT as malignancy is a consideration Resolved Problems Problem Noted Date Diagnosed Date Resolved Date Acute respiratory failure with hypoxia 11/21/2022 12/10/2023 COPD exacerbation 11/09/2022 12/10/2023 Fecal occult blood test positive 10/28/2015 09/02/2017 Pneumothorax 06/16/2013 09/02/2017 Major depressive disorder, r ecurrent episode, in partial or unspecified remission 12/03/2007 04/0 07/2012 Anxiety state, unspecified 02/01/2007 0 02/27/2016 Unspecified drug dependence, unspecified 02/01/2007 05/19/2013 Overview: 04/23 Ulcerative colitis, unspecified 04/18/2006 10/09/2022 Overview: Last major flare up 2 years ago SLEEP APNEA, borderline 04/18/200608/18 PULMONARY NODULE IN LLL BY CT 04/16/06 04/18/2006 05/10/2008 Encounters Date Type Department Care Team Description 04/09/2024 12:10 PM CDT Preop Visit [facility] [address] [place] [address] Cindi Torres MD Preoperative Exam (DOS: 04/14/2024, right shoulder surgery, Dr. Toro, [facility]) 04/09/[address] [address], [facility]ticoagulation (Hold/Bridge) 04/09/2024 Anticoagulation (warfarin) [facility] [address] [place] [address] 1, [facility] Anticoagulation 04/09/2024 Travel 03/26/2024 1:15 PM CDT Ancillary Procedure [address] [address] 03/26/2024 7:40 AM CDT Office Visit [address] [address] Mark Benito MD Musculoskeletal Problem (Consult right shoulder injury, DOI 03/21/24) 03/26/[address] [place] [address] Mark Benito MD Results (MRI) 03/26/2024 Travel 03/22/2024 1:15 PM CDT Ancillary Procedure [address] [address] 03/22/2024 1:00 PM CDT Ancillary Procedure [address] [address] 03/22/2024 11:40 AM CDT Office Visit [facility] [address] [place] [phone] Jessica Frank NP Fall (Fall striking right arm/shoulder. Unable to lift arm without assisting. DOI 03/21/24.) 03/22/2024 Telephone [facility] [address] [place] [address] Juan Zamora MD Appointment Request (STAT referral) 03/22/2024 Travel 03/13/2024 Anticoagulation (warfarin) [address] [address], [facility] Anticoagulation (CFX) 03/12/2024 1:15 PM CDT Orders Only [facility] [address] [place] [address] Lab, [facility] 03/12/2024 Travel 03/10/[address] [address] Cindi Torres MD Refill Request (Warfarin 2.5 mg tablet) 02/17/[address] [address] Cindi Torres MD Refill Request (Vagifem) 02/15/2024 Refill [facility] [address] [place] [address] Cindi Torres MD Refill Request (Warfarin) 01/25/2024 Anticoagulation (warfarin) [facility] [address] [place] [address] 1, [facility] Anticoagulation (CFX) 01/24/2024 2:45 PM TRANSPORTATION COORDINATOR Orders Only [facility] [address] [place] [address] Lab, [place] 01/24/2024 Travel 01/22/2024 Anticoagulation (warfarin) [address] [address], [facility] Anticoagulation (CFX) 01/21/2024 2:10 PM TRANSPORTATION COORDINATOR Office Visit [facility] [address] [place] [phone] Yamila Yanez NP Cough (crud) 01/21/2024 Anticoagulation (warfarin) [address] [address], [facility] Anticoagulation (Chart Update BPA) 01/21/[address] [address] Cindi Torres MD Anticoagulation ([facility]PA Azithromycin) 01/21/2024 Travel 01/21/[address] [address] Cindi Torres MD Refill Request 01/21/[address] [address] Cindi Torres MD Questions 01/21/[address] [address] Cindi Torres MD Anticoagulation (Chart update) from Last 3 Months Immunizations Name Administration Dates Next Due AMB Influenza, IIV3 (Age >=3 years)(Flu Clinic Only) 09/26/2012,09/24/2011,10/20/2008 COVID-19 vaccine (Moderna 100mcg/0.5mL) TYRELL JOHNSON 01/20/2021,12/23/2020 Influenza A (H1N1), Inactiva viv (Age >=3 Years) 10/26/2009 Influenza, IIV3 (Age 6-35 mos) 09/24/2011 Influenza, IIV3 (Age >=3 years) 08/25/20 13,08/08/2010,10/26/2009,09/11,09/26/2006,09/11/2005 Influenza, IIV4 08/08/2022,,07/28/2020,07/27,07/15/2018,09/13/2017,08/09/2016 ,09/14/2015,08/13/2014 Influenza,CCIIV4 PRESERV FREE 08/12/2023 Pneumococcal Conj 20-valent (Prevnar 20) 09/13/2023 Pneumococcal Poly,23-Valent (Pneumovax) 08/25/2013 Pneumococcal conj 13-Valent (Prevnar 13) 07/23/2019 RSV, Recombinant ADJ Reconst ituted (Arexvy 120MCG/0.5mL) 08/12/2023 Td (Age >=7 Years) 01/25/2005 Tdap 01/10/2015 Zoster (Shingrix-RZV, recombinant) 02/19/2019, Zoster (Zostavax-ZVL, live) 11/22/2020 Family History Medical History Relation Name Comments Alcohol/Drug Maternal Grandfather alcohol Alcohol/Drug Mother alcohol Hypertension Mother and diverticuli tis Psychiatric illness Mother Alcohol/Drug Paternal Grandfather Alcohol/Drug Paternal Grandmother Cancer No Family History Cancer-breast No Family History Cancer-colon No Family History Cancer-ovarian No Family History Cancer-prostate No Family History Relation Name Status Comments Brother mva alcohol rel ated Maternal Grandfather Mother Paternal Grandfather Paternal Grandmother Social History Tobacco Use Types Packs/Day Years Used Date Smoking Tobacco: Former Cigarettes Q uit: 11/18/2002 Smokeless Tobacco: Never Tobacco Cessation:Counseling Given: No Alcohol Use Standard Drinks/Week Comments No 0 (1 standard drink = 0.6 oz pur e alcohol) PHQ-2 Answer Date Recorded PHQ-2 TOTAL SCORE 0 12/10/2023 Social Connections Answer Date Recorded Frequency of Communication with Friends and Fami ly 0 04/09/2024 Financial Resource Strain Answer Date R ecorded Difficulty of Paying Living Expenses 3 04/09/2024 Difficulty of Paying Living Expenses Not on file 04/09/2024 Food Insecurity Answer Date Recorded Worried About Running Out of Food in the Last Ye ar 1 04/09/2024 Transportation Needs Answer Date Record ed Lack of Transportation (Medical) 1 04/09/2024 Housing Stability Answer Date Recorded Unable to Pay for Housing in the Last Year 1 04/09/2024 Sex and Gender Information Value Date Recorded Sex Assigned at Not on file Gender Identity Not on file Sexual Orientation Not on file Obstetrics History Para Term AB IAB SAB Ectopic Multiple Livin g Live Births 2 2 2 2 Date Outcome GA Total Labor Labor//3rd Weight Sex Delivery Anes PTL Taya A1 A5 Name Cl in Term Term Last Filed Vital Signs Vital Sign Reading Time Taken Comments Blood Pressure 165/95 04/09/2024 10:19 AM CDT Pulse 100 04/09/2024 10:19 AM CDT Temperature 36.7 ??C (98 ??F) 03/26/2024 7:50 AM CDT Respiratory Rate 16 03/22/2024 11:54 AM CDT Oxygen Saturation 95% 04/09/2024 10:19 AM CDT Inhaled Oxygen Concentration - - Weight 68.3 kg (150 lb 8 oz) 04/09/2024 10:19 AM CDT Height 161 cm (5' 3.39) 04/09/2024 10:19 AM CDT Body Mass Index 26.34 04/09/2024 10:19 AM CDT Plan of Treatment Upcoming Encounters Date Type Department Care Team (Late st Contact Info) Description 04/21/2024 1:00 PM CDT Orders Only [facility] [address] [place] [address] Lab, [place] 05/05/2024 1:15 PM CDT Office Visit [facility] [address] [place] [address] Tyson Cho DO [address] [place] [address] Health Maintenance Due Date Last Done Comments Influenza for age 50-64 07/19/2024 08/12/20, 08/08/2022, 07/03/2021, Additional history exists Colonoscopy through age 75 10/07/202410/07, 10/07/2014 (Completed outside of [facility]) Mammogram for age 45-75 12/10/2024 12/10/19 24, 10/23/2022, 10/19/2021, Additional history exists Depression screening for age 12+ 12/13/2024 12/13/2023, 12/11/2023, 12/10/2023, Additional history exists Tetanus booster 01/10/2025 01/10/2015, 01/25/2005 BMI (ht and wt on same day) for age 18+ 04/09/2025 04/09/2024, 01/21/2024, 12/10/2023, Additional history exists Pap test for age 21-65 10/09/2025 , 07/23/2019, 12/06/2016, Additional history exists Lipids for age 45-75 12/10/2028 12/10/2023, 06/10/2023, 11/01/2022, Additional history exists Tdap Completed 01/10/2015 Hepatitis C screening for ag e 18-79 Completed 08/06/2019 Zoster (shingles) series for age 50+ Completed 11/22/2020, 02/19/2019, 08/11/2018 HIV for age 15-65 Completed 11/01/2022 COVID-19 vaccine series Completed 08/12/20, 08/08/2022, 03/15/2022, Additional history exists Pneumococcal series for age 6-64 Completed 09/13/2023, 07/23/2019, 08/25/2013 Procedures Procedure Name Priority Date/Time Associated Diagnosis Comments CBC WITH AUTO DIFFERENTIAL Routine 04/09/2024 11:19 AM CDT Preoperative examination BASIC METABOLIC PANEL Routine 04/09/2024 11:19 AM CDT Preoperative examination CBC WITH AUTO DIFFERENTIAL Routine 04/09/2024 11:19 AM CDT Preoperative examination FACTOR 10 CHROMOGENIC STAT 04/09/2024 11:19 AM CDT Bilateral pulmonary embolism (HC) Anticoagulation monitoring, CFX 20-30% MR SHOULDER RIGHT WO VANIA 03/26/2024 2:06 PM CDT Rotator cuff syndrome of right shoulder Right shoulder strain, initial encounter Weakness of right shoulder XR SHOULDER 3 VIEWS RIGHT STAT 03/22/2024 12:24 PM CDT Accidental fall, initial encounter XR HUMERUS MIN 2 VIEWS RIGHT STAT 03/22/2024 12:19 PM CDT Accidental fall, initial encounter FACTOR 10 CHROMOGENIC STAT 03/12/2024 1:52 PM CDT Bilateral pulmonary embolism (HC) Anticoagulation monitoring, CFX 20-30% FACTOR 10 CHROMOGENIC STAT 01/24/2024 12:26 PM TRANSPORTATION COORDINATOR Bilateral pulmonary embolism (HC) Anticoagulation monitoring, CFX 20-30% FACTOR 10 CHROMOGENIC Routine 01/21/2024 2:43 PM TRANSPORTATION COORDINATOR Lupus anticoagulant syndrome (HC) LIPID PANEL W REFLEX MEASURED LDL Routine 12/10/2023 12:42 PM TRANSPORTATION COORDINATOR Lipid screening XR MAMMO CAROLE BILAT SCREEN Routine 12/10/2023 10:38 AM TRANSPORTATION COORDINATOR Visit for screening mammogram ANTI HIV 1/2 Routine 11/01/2022 10:07 AM TRANSPORTATION COORDINATOR Screening for HIV (human immunodeficiency virus) WARP SPLITTER THIN PREP PAP SCREEN IMAGED Routine 10/09/2022 11:15 AM TRANSPORTATION COORDINATOR Screening for cervical cancer ANTI HCV Routine 08/06/2019 9:45 AM CDT Need for hepatitis C screening test SCAN-COLONOSCOPY 10/07/2014 12:0 0 AM TRANSPORTATION COORDINATOR from Last 3 Months or Most Recently Relevant to Health Maintenance Results * CBC WITH AUTO DIFFERENTIAL (04/09/2024 11:19 AM CDT) Pathologist [facility] WHITE BLOOD COUNT 6.5 4.5 - 11.0 thou/cu mm 04/09/2024 11:25 AM CDT [facility] RED BLOOD COUNT 4.30 4.00 - 5.20 mil/cu mm 04/09/2024 11:25 AM CDT [facility] HEMOGLOBIN 13.7 12.0 - 16.0 g/dL 04/09/2024 11:25 AM CDT [facility] HEMATOCRIT 40.2 33.0 - 51.0 % 04/09/2024 11:25 AM CDT [facility] MCV 94 80 - 100 fL 04/09/2024 11:25 AM CDT [facility] MCH 31.9 26.0 - 34.0 pg 04/09/2024 11:25 AM CDT [facility] MCHC 34.1 32.0 - 36.0 g/dL 04/09/2024 11:25 AM CDT [facility] RDW 13.6 11.5 - 15.5 % 04/09/2024 11:25 AM CDT [facility] PLATELET COUNT 266 140 - 440 thou/cu mm 04/09/2024 11:25 AM CDT [facility] MPV 9.1 6.5 - 11.0 fL 04/09/2024 11:25 AM CDT [facility] % NEUT 46.8 % 04/09/2024 11:25 AM CDT [facility] % LYMPH 42.0 % 04/09/2024 11:25 AM CDT [facility] % MONO 9.5 % 04/09/2024 11:25 AM CDT [facility] % EOS 1.2 % 04/09/2024 11:25 AM CDT [facility] % BASO 0.5 % 04/09/2024 11:25 AM CDT [facility] ABSOLUTE NEUTROPHILS 3.1 1.7 - 7.0 thou/cu mm 04/09/2024 11:25 AM CDT [facility] ABSOLUTE LYMPHOCYTES 2.7 0.9 - 2.9 thou/cu mm 04/09/2024 11:25 AM CDT [facility] ABSOLUTE MONOCYTES 0.6 <0.9 thou/cu mm 04/09/2024 11:25 AM CDT [facility] ABSOLUTE EOSINOPHILS 0.1 <0.5 thou/cu mm 04/09/2024 11:25 AM CDT [facility] ABSOLUTE BASOPHILS 0.0 <0.3 thou/cu mm 04/09/2024 11:25 AM CDT [facility] Blood BLOOD SPECIMEN / Unknown Venipuncture / Unknown 04/09/2024 11:19 AM CDT 04/09/2024 11:19 AM CDT Cindi Torres MD HEMATOLOGY [facility] [address] [place] [address], * (ABNORMAL) FACTOR 10 CHROMOGENIC (04/09/2024 11:19 AM CDT) Only the most recent of4 resultswithin the time period is included. FACTOR 10 CHROMOGENIC 19(L) 65 - 130 % 04/09/2024 4:00 PM CDT [facility] Blood BLOOD SPECIMEN / Unknown Venipuncture / Unknown 04/09/2024 11:19 AM CDT 04/09/2024 11:19 AM CDT Narrative [facility] - 04/09/2024 4:00 PM CDT Therapeutic Range 20-40% Cindi Torres MD SEND OUTS [facility] [address] [place] [phone], * (ABNORMAL) BASIC METABOLIC PANEL (04/09/2024 11:19 AM CDT) SODIUM 139 136 - 145 mmol/L 04/10/2024 3:36 AM CDT [facility] POTASSIUM 4.1 3.5 - 5.1 mmol/L 04/10/2024 3:36 AM CDT [facility] CHLORIDE 98 98 - 107 mmol/L 04/10/2024 3:36 AM CDT [facility] CO2,TOTAL 27 22 - 29 mmol/L 04/10/2024 3:36 AM CDT [facility] ANION GAP 14 5 - 18 04/10/2024 3:36 AM CDT [facility] GLUCOSE 112(H) 70 - 99 mg/dL 04/10/2024 3:36 AM CDT [facility] CALCIUM 10.1 8.8 - 10.2 mg/dL 04/10/2024 3:36 AM CDT [facility] BUN 15 8 - 23 mg/dL 04/10/2024 3:36 AM CDT [facility] CREATININE 0.85 0.50 - 0.90 mg/dL 04/10/2024 3:36 AM T [facility] BUN/CREAT RATIO 18 10 - 20 3:36 AM T [facility] eGFR 77(L) >90 mL/min/1.7 3m2 04/10/2024 3:36 AM T [facility] Comment:As of 2022, eG FR is calculated by the CKD-EPI creatinine equation without race adjustment. ??eGFR can be influenced by muscle mass, exercise, and diet. ??The reported eGFR is an estimation only and is only applicable if the renal function is stable. Blood BLOOD SPECIMEN / Unknown Venipuncture / Unknown 04/09/2024 11:19 AM CDT 04/09/2024 11:19 AM CDT Cindi Torres MD CHEMISTRY [facility] [address] [place] [address], * MR SHOULDER RIGHT WO (03/26/2024 2:06 PM CDT) Anatomical Region Laterality Modality SHOULDER R Magnetic Resonan ce 03/26/2024 2:31 PM CDT Impressions 03/26/2024 2:31 PM CDT 1. Full-thickness tear of the majority of the supraspinatus tendon with low- grade partial-thickness tear in the remaining posterior supraspinatus tendon. Moderate tendinopathy. Mild muscle atrophy. 2. Infraspinatus and subscapularis tendinopathy. 3. Moderate to high-grade humeral head chondromalacia superiorly. 4. Glenohumeral joint effusion and fluid in the subacromial subdeltoid bursa. 5. Coracoacromial arch configuration is associated with impingement. Dictated by Mark Morton MD @ 03/26/2024 2:31:41 PM (Electronically Signed) Narrative 03/26/2024 2:31 PM CDT For Patients: ??As a result of the Cures Act, medical imaging exams and procedure reports are released immediately into your electronic medical record. ??You may view this report before your referring provider. ??If you have questions, please contact your health care provider. EXAM: MRI OF THE RIGHT SHOULDER WITHOUT CONTRAST CLINICAL INDICATION: Shoulder pain and weakness following injury. COMPARISON PLAIN FILMS: 03/22/2024. COMPARISON CROSS-SECTIONAL IMAGING STUDIES: None available at time of interpretation. TECHNICAL: Axial, sagittal oblique and coronal oblique T1, PD, PD FS and T2-weighted images. Shoulder surface coil. FINDINGS: ROTATOR CUFF TENDONS AND MUSCLES AND DELTOID: Supraspinatus: Full-thickness tear of the majority the supraspinatus tendon measures 1.7 cm AP x 2.0 cm RL. Additional low-grade partial-thickness articular surface tearing posteriorly. Moderate tendinopathy. Mild muscle atrophy. No muscle edema. Infraspinatus: Moderate tendinopathy. No tendon tear. Subscapularis: Mild tendinopathy. No tendon tear. Teres Minor: No tendinosis, tendon tearing, muscle atrophy or muscle edema. Deltoid: No muscle atrophy or edema. BURSA: Subacromial-subdeltoid: Moderate amount of fluid in the subacromial subdeltoid bursa. BICEPS TENDON, LONG HEAD: The long head of the biceps tendon is appropriately positioned within the bicipital groove without tendon subluxation or dislocation. ??The biceps giuliano mechanism is intact. ??The biceps anchor appears grossly intact. ??There is no significant tendinosis or tendon tearing. CORACOACROMIAL ARCH: Acromial Morphology: Type 2 acromial morphology. Mild lateral downsloping. Large subacromial enthesophyte. No os acromiale. Acromiohumeral Interval: Normal. ?? Coracohumeral Interval: Normal. ?? ACROMIOCLAVICULAR JOINT REGION: AC Joint: Moderate to advanced arthropathy with small inferior marginal osteophytes. Ligaments: The coracoclavicular ligaments are intact. GLENOHUMERAL JOINT: Joint space: Glenohumeral joint effusion. No loose bodies. Humeral Head Articular Cartilage: Moderate to high-grade chondromalacia superiorly. Glenoid Articular Cartilage: No focal cartilage defect or underlying subchondral marrow changes. Labrum: No labral tear or paralabral cyst. Alignment: Maintained. Capsule: No capsular edema or abnormal capsular thickening. OSSEOUS STRUCTURES: No fracture, marrow edema or marrow replacement process. OTHER FINDINGS: There is no abnormality within the suprascapular or spinoglenoid notches nor within the quadrilateral space. ??No axillary adenopathy or mass. Procedure Note Mark Morton MD - 03/26/2024 For Patients: As a result of the 21st Century Cures Act, medical imagingexams and procedure reports are released immediately into your electronicmedical record. You may view this report before your referring provider.If you have questions, please contact your health care provider. EXAM: MRI OF THE RIGHT SHOULDER WITHOUT CONTRAST CLINICAL INDICATION: Shoulder pain and weakness following injury. COMPARISON PLAIN FILMS: 03/22/2024. COMPARISON CROSS-SECTIONAL IMAGING STUDIES: None available at time of interpretation. TECHNICAL: Axial, sagittal oblique and coronal oblique T1, PD, PD FS and T2-weightedimages. Shoulder surface coil. FINDINGS: ROTATOR CUFF TENDONS AND MUSCLES AND DELTOID: Supraspinatus: Full-thickness tear of the majority the supraspinatustendon measures 1.7 cm AP x 2.0 cm RL. Additional fez-iesmvarfdtdx-[id number] articular surface tearing posteriorly. Moderatetendinopathy. Mild muscle atrophy. No muscle edema. Infraspinatus: Moderate tendinopathy. No tendon tear. Subscapularis: Mild tendinopathy. No tendon tear. Teres Minor: No tendinosis, tendon tearing, muscle atrophy or muscleedema. Deltoid: No muscle atrophy or edema. BURSA: Subacromial-subdeltoid: Moderate amount of fluid in the subacromialsubdeltoid bursa. BICEPS TENDON, LONG HEAD: The long head of the biceps tendon is appropriately positioned within thebicipital groove without tendon subluxation or dislocation. The bicepspulley mechanism is intact. The biceps anchor appears grossly intact.There is no significant tendinosis or tendon tearing. CORACOACROMIAL ARCH: Acromial Morphology: Type 2 acromial morphology. Mild lateral downsloping.Large subacromial enthesophyte. No os acromiale. Acromiohumeral Interval: Normal. Coracohumeral Interval: Normal. ACROMIOCLAVICULAR JOINT REGION: AC Joint: Moderate to advanced arthropathy with small inferior marginalosteophytes. Ligaments: The coracoclavicular ligaments are intact. GLENOHUMERAL JOINT: Joint space: Glenohumeral joint effusion. No loose bodies. Humeral Head Articular Cartilage: Moderate to high-grade chondromalaciasuperiorly. Glenoid Articular Cartilage: No focal cartilage defect or underlyingsubchondral marrow changes. Labrum: No labral tear or paralabral cyst. Alignment: Maintained. Capsule: No capsular edema or abnormal capsular thickening. OSSEOUS STRUCTURES: No fracture, marrow edema or marrow replacement process. OTHER FINDINGS: There is no abnormality within the suprascapular or spinoglenoid notchesnor within the quadrilateral space. No axillary adenopathy or mass. IMPRESSION: 1. Full-thickness tear of the majority of the supraspinatus tendon withlow-grade partial-thickness tear in the remaining posterior supraspinatustendon. Moderate tendinopathy. Mild muscle atrophy. 2. Infraspinatus and subscapularis tendinopathy. 3. Moderate to high-grade humeral head chondromalacia superiorly. 4. Glenohumeral joint effusion and fluid in the subacromial subdeltoidbursa. 5. Coracoacromial arch configuration is associated with impingement. Dictated by Mark Morton MD @ 03/26/2024 2:31:41 PM (Electronically Signed) Mark Benito MD MR * XR SHOULDER 3 VIEWS RIGHT (03/22/2024 12:24 PM CDT) Anatomical Region Laterality Modality SHOULDERS, SHOULDER R Computed R adiography 03/22/2024 1:02 PM CDT Impressions 03/22/2024 1:02 PM CDT Anatomic glenohumeral alignment. Moderate degenerative arthrosis AC joint. Maintained acromial humeral distance. No acute finding in the field of view. Dictated by Mark Armstrong MD @ 03/22/2024 1:02:19 PM (Electronically Signed) Narrative 03/22/2024 1:02 PM CDT For Patients: ??As a result of the Cures Act, medical imaging exams and procedure reports are released immediately into your electronic medical record. ??You may view this report before your referring provider. ??If you have questions, please contact your health care provider. INDICATION: Pain after fall. TECHNIQUE: Three views right shoulder. COMPARISON: March 19, 2022. Procedure Note Mark Armstrong MD - 03/22/2024 For Patients: As a result of the Cures Act, medical imagingexams and procedure reports are released immediately into your electronicmedical record. You may view this report before your referring provider.If you have questions, please contact your health care provider. INDICATION: Pain after fall. TECHNIQUE: Three views right shoulder. COMPARISON: March 19, 2022. IMPRESSION: Anatomic glenohumeral alignment. Moderate degenerative arthrosis AC joint.Maintained acromial humeral distance. No acute finding in the field ofview. Dictated by Mark Armstrong MD @ 03/22/2024 1:02:19 PM (Electronically Signed) Jessica Frank SPECIAL PROGRAMS DIRECTOR GENERAL IMAGING * XR HUMERUS MIN 2 VIEWS RIGHT (03/22/2024 12:19 PM CDT) Anatomical Region Laterality Modality HUMERI, HUMERUS R Computed Radio graphy 03/22/2024 12:5 4 PM CDT Impressions 03/22/2024 12:54 PM CDT Negative for acute fracture. Dictated by Cecile Wills MD @ 03/22/2024 12:54:04 PM (Electronically Signed) Narrative 03/22/2024 12:54 PM CDT For Patients: ??As a result of the Cures Act, medical imaging exams and procedure reports are released immediately into your electronic medical record. ??You may view this report before your referring provider. ??If you have questions, please contact your health care provider. INDICATION: Fall TECHNIQUE: X-ray right humerus, two views COMPARISON: None. FINDINGS: The alignment is normal. Negative for acute fracture or dislocation. Overlying soft tissues unremarkable. Visualized portions of the lung is clear. Negative for radiopaque foreign body. ?? Procedure Note Cecile Wills MD - 03/22/2024 For Patients: As a result of the Cures Act, medical imagingexams and procedure reports are released immediately into your electronicmedical record. You may view this report before your referring provider.If you have questions, please contact your health care provider. INDICATION: Fall TECHNIQUE: X-ray right humerus, two views COMPARISON: None. FINDINGS: The alignment is normal. Negative for acute fracture or dislocation.Overlying soft tissues unremarkable. Visualized portions of the lung isclear. Negative for radiopaque foreign body. IMPRESSION: Negative for acute fracture. Dictated by Cecile Wills MD @ 03/22/2024 12:54:04 PM (Electronically Signed) Jessica Frank NP GENERAL IMAGING * (ABNORMAL) LIPID PANEL W REFLEX MEASURED LDL (12/10/2023 12:42 PM TRANSPORTATION COORDINATOR) CHOLESTEROL,TOTAL 208(H) 100 - 199 mg/dL 12/10/2023 11:26 PM TRANSPORTATION COORDINATOR [facility] [employer] [facility] Comment: Cholesterol, Total Reference Ranges Desirable <200 mg/dL Borderline 200-239 mg/dL High >=240 mg/dL TRIGLYCERIDES 117 <150 mg/dL 12/10/2023 11:26 PM TRANSPORTATION COORDINATOR [facility] HDL CHOLESTEROL 82 >40 mg/dL 11:26 PM TRANSPORTATION COORDINATOR [facility] NON-HDL CHOLESTEROL 126 <145 mg/dl 12/10/2023 11:26 PM TRANSPORTATION COORDINATOR [facility] CHOL/HDL RATIO 2.54 <4.50 12/10/2023 11:26 PM TRANSPORTATION COORDINATOR [facility] LDL CHOLESTEROL 103 <=130 mg/dL 12/10/2023 11:26 PM TRANSPORTATION COORDINATOR [facility] VLDL CHOLESTEROL 23 <=30 mg/dL 12/10/2023 11:26 PM TRANSPORTATION COORDINATOR [facility] PROVIDER ORDERED STATUS RANDOM 12/10/2023 11:26 PM TRANSPORTATION COORDINATOR [facility] Blood BLOOD SPECIMEN / Unknown Venipuncture / Unknown 12/10/2023 12:42 PM TRANSPORTATION COORDINATOR 12/10/2023 12:44 PM TRANSPORTATION COORDINATOR Cindi Torres MD CHEMISTRY [facility] [address] [place] [address], [place] * XR MAMMO CAROLE BILAT SCREEN (12/10/2023 10:38 AM TRANSPORTATION COORDINATOR) Anatomical Region Laterality Modality BREASTS, Breast Left, Breast Right Bilateral Mammography Impressions 12/10/2023 2:20 PM TRANSPORTATION COORDINATOR ??There is no radiographic evidence for malignancy. ??Recommend annual mammograms. MAMMOGRAM ASSESSMENT: ??ACR 1 Negative PATIENTS: You will also receive a letter with your examination results in an easy to read format. ??If you have questions about your results, please contact your referring provider. Narrative 12/10/2023 2:20 PM TRANSPORTATION COORDINATOR For Patients: As a result of the Century Cures Act, medical imaging exams and procedure reports are released immediately into your electronic medical record. You may view this report before your referring provider. If you have questions, please contact your health care provider. XR MAMMO CAROLE BILAT SCREEN [[id number]] CLINICAL HISTORY: ??This is an asymptomatic 63 y.o. patient. INDICATION FOR EXAM: Mammogram Screening. TECHNIQUE: CC & MLO views were obtained. ??This study was evaluated with the assistance of Computer-Aided Detection. Breast Tomosynthesis was used in interpretation. COMPARISON FILM: Yes 10/23/22 [facility] 10/19/21 [facility] FINDINGS: ??The breasts have scattered areas of fibroglandular density. There are no dominant masses, suspicious micro calcifications or areas of architectural distortion. Cindi Torres MD MAMMO * ANTI HIV 1/2 (11/01/2022 10:07 AM TRANSPORTATION COORDINATOR) [facility] HIV-1/HIV-2 ANTIBODY Non-Reacti ve Non-Reacti ve 11/03/2022 4:07 AM TRANSPORTATION COORDINATOR [facility] Comment:HIV-1 p24 and HIV-1/ HIV-2 Ab not detected. Blood BLOOD SPECIMEN / Unknown Venipuncture / Unknown 11/01/2022 10:07 AM TRANSPORTATION COORDINATOR 11/01/2022 10:10 AM TRANSPORTATION COORDINATOR Cindi Torres MD SEND OUTS [facility] [address] [place] [address], * WARP SPLITTER THIN PREP PAP SCREEN IMAGED (10/09/2022 11:15 AM TRANSPORTATION COORDINATOR) [facility] Case Report Gynecologic Cytology Report ? Case: [id number] ? Authorizing Provider: ??Cindi Torres, ??Collected: ? 10/09/2022 1115 ? MD ? Ordering Location: ? [facility] ?? Received: ?10/09/2022 1223 ? Clinic ? First Screen: ?Baccam, Minie ? Specimen: ?WARP SPLITTER ThinPrep Vial Screening, Cervical ? 11/01/2022 2:41 PM TRANSPORTATION COORDINATOR [facility] INTERPRETATION/ RESULT NEGATIVE FOR INTRAEPITHELIAL LESION OR MALIGNANCY (NIL) (none) 11/01/2022 2:41 PM TRANSPORTATION COORDINATOR [facility] IMEN ADEQUACY Satisfactory for evaluation Endocervical component present 11/01/2022 2:41 PM TRANSPORTATION COORDINATOR [facility] HPV REQUEST HPV if ASCUS 11/01/2022 2:41 PM TRANSPORTATION COORDINATOR [facility] Date of LMP years ago 11/01/2022 2:41 PM TRANSPORTATION COORDINATOR [facility] Last Pap Date 07/23/19 11/01/2022 2:41 PM TRANSPORTATION COORDINATOR [facility] Last Pap Result NIL 2:41 PM TRANSPORTATION COORDINATOR [facility] Abnormal Pap or Mansura Bx in last 5 years No 11/01/2022 2:41 PM TRANSPORTATION COORDINATOR [facility] Menstrual Status Postmenopausal 11/01/2022 2:41 PM TRANSPORTATION COORDINATOR [facility] Mansura Bx Done Today No 11/01/2022 2:41 PM TRANSPORTATION COORDINATOR [facility] Additional Information None given 11/01/2022 2:41 PM TRANSPORTATION COORDINATOR [facility] Comment: Cytology is screened at [facility] - [address], [place] [address] and [facility] - [address], [place] [address] and [facility] - [address] [place] [address] Interpreted at [facility] - [address], [place] [address] Automated Review Successful 11/01/2022 2:41 PM TRANSPORTATION COORDINATOR [facility] Comment:Specimen processed s uccessfully by automated clinical science liaison device, ThinPrep Imaging System, [employer] Note The pap test is a screening technique, not a diagnostic procedure. It is used primarily to screen for squamous cancers and precursor lesions. Published studies have shown that it is subject to both false negative and false positive results. The pap test should not be used as the sole means to diagnose or exclude pre-malignant and malignant lesions. 11/01/2022 2:41 PM TRANSPORTATION COORDINATOR [facility] Other (Cervical) Non-Blood / Unknown 10/09/2022 11:15 AM TRANSPORTATION COORDINATOR 10/09/2022 12:23 PM TRANSPORTATION COORDINATOR Cindi Torres MD PATHOLOGY/CYT OLOGY [facility] [address] [place] [address], [place] * ANTI HCV (08/06/2019 9:45 AM CDT) HEPATITIS C ANTIBODY Non-React gael Non-React gael 08/06/2019 6:12 PM CDT [facility] Comment:Antibodies to HCV no t detected; does not exclude the possibility of exposure to HCV. Blood BLOOD SPECIMEN / Unknown Venipuncture / Unknown 08/06/2019 9:45 AM CDT 08/06/2019 9:45 AM CDT Cindi Torres MD SEND OUTS [facility] 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 Healthcare Directive 03/08/2022 022 * Full Code (Latest Code Status on File) Date Activated Date Inactivated Comments 11/11/2022 3:26 PM 11/16/2022 5:51 PM Question Answer Comments Code Status Discussion: Reviewed Preferences * Full Code Date Activated Date Inactivated Comments 11/09/2022 9:34 AM 11/11/2022 1:14 PM Question Answer Comments Code Status Discussion: Reviewed Preferences * Full Code Date Activated Date Inactivated Comments 11/08/2022 11:33 AM 11/09/2022 9:34 AM Question Answer Comments Code Status Discussion: Unable to Assess Preferences, Provider to review later * Full Code Date Activated Date Inactivated Comments 04/17/2006 8:40 PM 04/23/2006 4:09 PM 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
[2024-04-14] MEDS: LACTATED RINGERS 1000 ML 1,000 ML 100 ML IV ×2 (09:00→12:31)
[2024-04-14] MEDS: ACETAMINOPHEN 500 MG TABLET 1000 MG PO (09:00)
[2024-04-14] MEDS: SODIUM CHLORIDE 0.9 % (FLUSH) 10 ML SYRINGE IVF (09:00)
[2024-04-14] MEDS: OXYCODONE (CR) 10 MG TAB.ER.12H PO (09:00)
[2024-04-14] MEDS: MIDAZOLAM HCL 1 MG/ML inj IVP (10:40)
[2024-04-14] MEDS: fentaNYL 100 MCG/2 ML inj IVP (10:40)
--- NOTE | 2024-04-14 10:50 | SUR.PREOP ---
TIME?OUT:?1038 PT/Mina COLVIN RN/Chucho ALLEN MDA?VERIFICATION?OF?SURGICAL?SITE,?PROCEDURE,?AND?CONSENT OBTAINED?PRIOR?TO?INVASIVE?PROCEDURE.
--- NOTE | 2024-04-14 11:18 | W.PM.NB ---
Nerve Block Nerve Block Time Seen by Provider: 10:42 Date Seen: 04/14/24 Type of block requested by surgeon for post-operative analgesia: supraclavicular Side: right Time out performed: Yes Verification of patient name: Yes Verification of date of : Yes Site marking: site marked Name of person performing procedure: Sd Continuous monitoring Was continuous monitoring of O2 sat, B/P, cutter grinder operator, recorded every 15 minutes?: Yes Procedure Checklist: sterile prep, needles and gloves Ultrasound guided. Images saved: Yes Medications given in 5ml increments after negative aspiration: Ropivicaine %: 0.5 mL: 20 Needle gauge: 22 Decadron (mg): 10 Precedex (mcg): 25 Patient tolerated procedure well: Yes Block Charges Block Charge (with Pro Fee): Brachial Plexus Use of Ultrasound Machine for Block: Yes- US Guidance/pain block
[2024-04-14] MEDS: EPINEPHrine 1 MG in SODIUM CHLORIDE IRRIG SOLUTION 3,000 ML 9003 MG IRRIGATION ×2 (11:19→11:34)
--- NOTE | 2024-04-14 11:19 | W.ANESCHARGE ---
Anesthesia Charges Start Date/Time Anesthesia Start Date: 04/14/24 Anesthesia Start Time: 10:53 Stop Date/Time Anesthesia Stop Date: 04/14/24 Anesthesia Stop Time: 12:53
--- NOTE | 2024-04-14 12:30 | P.ORPRC_ITS ---
Procedure Note Date of procedure: 04/14/24 Procedure: PREOPERATIVE DIAGNOSIS: Right shoulder rotator cuff tear, AC joint arthrosis POSTOPERATIVE DIAGNOSIS: Right shoulder rotator cuff tear, AC joint arthrosis, labral tearing, biceps tendinopathy NAME OF OPERATION: Right shoulder arthroscopic subacromial decompression, distal clavicle excision, mini open rotator cuff repair, limited glenohumeral joint debridement, biceps tenodesis SURGEON: Art Toro MD CRIMPING MACHINE OPERATOR FOR METAL: Tamanna Munoz PA-C ANESTHESIA: Supraclavicular block plus general endotracheal ESTIMATED BLOOD LOSS: 5 mL COMPLICATIONS: None SPECIMENS: None DRAINS: None PREOPERATIVE ANTIBIOTICS: Ancef 2 grams INDICATIONS: The patient is a 63-year-old with a history of right shoulder pain secondary to the above diagnoses. Despite appropriate non operative management, they continue to have symptoms. Operative intervention was recommended. The risks, benefits and expected outcomes were discussed in detail. These included but were not limited to: Infection, bleeding, injury to blood vessel or nerve, venous thromboembolism. All questions were answered to their satisfaction. PROCEDURE: A supraclavicular block was placed by Anesthesia. General anesthesia was administered. The patient was placed in the high beach chair position. The right shoulder was prepped and draped in the usual sterile fashion. The glenohumeral joint was infiltrated with 20 mL of normal saline with epinephrine. The posterior portal was established, the arthroscope was introduced. The anterior portal was established, Diagnostic arthroscopy was performed with findings as follows: The biceps shows moderate intra-articular tendinopathy. The anterior, posterior and superior labrum show age-appropriate degenerative tearing. Articular surfaces on the humeral head and glenoid are normal. There are no loose bodies. There is a full-thickness tear of the supraspinatus. The biceps was tenotomized with the arthroscopic scissors. Its stump, the anterior, superior and posterior labrum were debrided with the s haver. The arthroscope was placed in the subacromial space, the lateral portal was established. The Arthrex Graff was used to dissect the acromion free. The CA ligament was recessed off the anterior acromion, the AC joint was exposed. The acromioplasty was performed with the bur in the posterior portal. The bur was then placed in the lateral portal and the lateral and anterior aspect of the acromion were resected. The undersurface of the distal clavicle was resected through the lateral portal. Finally, the bur was placed in the anterior portal and the remainder of the distal clavicle was resected for a total of 10 mm. An accessory anterolateral portal was placed. The subacromial/subdeltoid bursa was aggressively debrided. There is a full-thickness tear of the supraspinatus, into the infraspinatus. Arthroscopic instruments were removed. The accessory anterolateral portal was extended proximally and distally, subcutaneous dissection was taken with electrocautery to the deltoid. The deltoid was divided in line with its fibers. The static retractor was placed. The subacromial/subdeltoid bursa was debrided with the Teague scissors. The greater tuberosity was debrided to punctate bleeding bone using the arthroscopic bur. The upper border of the subscap was released with the scalpel, exposing the lesser tuberosity. It was debrided with the Erika rongeur. A whipstitch was placed in the biceps. An inverted mattress stitch was placed in the upper subscap. Two Ar[employer]rex Bio[employer] SwiveLock anchors were placed just off the articular surface. Both limbs of the FiberWire and fiber tape were passed using the scorpion. A fiber link was placed in the leading edge of the rotator cuff x2. We placed several margin convergence sutures to advance the anterior leaflet l aterally and posteriorly. This nicely covered the greater tuberosity. We placed a 4.75 mm anchor at the top of the bicipital groove to secure the biceps. The suture on the eyelet was passed through the leading edge of the subscap and tied over the front. We tied the 2 central FiberWire sutures over the rotator cuff. We then proceeded with a lateral row of SwiveLock anchors x 2 crossing the FiberTape and incorporating the FiberWire and fiber link into each lateral row anchor. The suture on the eyelet of the posterior, lateral row anchor was passed through the leading edge of the infraspinatus and tied resulting in a simple suture. The suture on the eyelet on anterior, lateral row anchor was unloaded. This provides an anatomic, watertight repair of the rotator cuff. There is no tension on the repair with the shoulder at 0? abduction. The wound was irrigated with normal saline off the pump. The deltoid was repaired with an 0 Vicryl in an interrupted [id number] fashion. Subcutaneous tissues were closed with a 3-0 Vicryl. Skin was closed with a 3-0 Monocryl in a subcuticular fashion. A dry dressing and sling were applied. Sponge and needle counts were correct x2. The patient tolerated the procedure well. There were no apparent complications. They were carefully transferred to the hospital bed and taken to the postanesthesia care unit in satisfactory condition. PLAN: The patient will be discharged to home. No active range of motion of the shoulder will be allowed for 6 weeks postoperatively. They can work on active range of motion of the elbow, wrist and fingers. They will follow up in the office next week for a wound check and an AP and transscapular Y-view of the shoulder prior to being seen.
--- NOTE | 2024-04-14 12:54 | W.ANESCHARGE ---
Anesthesia Charges Start Date/Time Anesthesia Start Date: 04/14/24 Anesthesia Start Time: 10:53 Stop Date/Time Anesthesia Stop Date: 04/14/24 Anesthesia Stop Time: 12:53
== END 2024-04-14 14:44 | disposition home or self-care (01) ==
LOC: OR 08:33
PROVIDERS: PCP Family Medicine; Visit Provider Orthopaedic Surgery
PROC: (CPT 23412; principal; 2024-04-14 10:30)
DX: M75.101 Unspecified rotator cuff tear or rupture of right shoulder, not specified as traumatic (principal); M19.011 Primary osteoarthritis, right shoulder; S43.431A Superior glenoid labrum lesion of right shoulder, initial encounter; M75.21 Bicipital tendinitis, right shoulder; G89.18 Other acute postprocedural pain
CPT/HCPCS: 29826; 29824; 29822; 23412; 23430; 01630; 64415; 76942; A9270; C1713; J0171; J0330; J1100; J2250; J2405; J2704; J2710; J2795; J3010; J7120